=== PATIENT | male | born 1940 | race Caucasian/White ===

== ENCOUNTER → 2020-08-27 12:04 | Outpatient (CLI) | payer MEDICARE, OTHER, SELFPAY ==
[2020-08-27] MEDS: COVID-19 VACC, Ad26(JANSSEN)/PF 0.5 ML IM (12:42)
== END ==
PROVIDERS: Visit Provider Internal Medicine
DX: Z23 Encounter for immunization (principal)
CPT/HCPCS: 0031A; 91303

== ENCOUNTER 2021-10-06 14:34 | Emergency (ER) | payer MEDICARE, OTHER, SELFPAY ==
[2021-10-06] VITALS (9 sets, daily range): BP systolic 130–154; BP diastolic 64–86; PULSE 82–96; RESP 17–23; TEMP 36.6; O2SAT 95–98; BMI 28.5
--- NOTE | 2021-10-06 14:53 | DI.CT.S_ITS ---
PROCEDURE: CT HEAD/BRAIN WO CON INDICATIONS: fall head injury, not on thinners, does not recall the fall TECHNIQUE: Noncontrast 4.5 mm thick angled axial sections acquired from the foramen magnum to the vertex, with coronal and sagittal reformats. For radiation dose reduction, the following was used: automated exposure control, adjustment of mA and/or kV according to patient size. COMPARISON: [facility], CR, XR THORACIC SPINE 3V, 10/06/2021, 14:52. [facility], CT, CT CERVICAL SPINE WO CON, 10/06/2021, 15:02. FINDINGS: Image quality: Excellent. CSF spaces: Basal cisterns are patent. No extra-axial fluid collections. The ventricles are symmetric in size and shape. Brain: No intracranial bleeds or masses. There is cerebral volume loss for age, with resultant ventricular and sulcal prominence. There are periventricular and deep white matter chronic small vessel ischemic changes. There is intracranial internal carotid artery atherosclerosis. Skull and face: Calvarium and visualized facial bones appear intact, without suspicious lesions. Sinuses: Moderate to prominent left and moderate right maxillary sinus mucosal thickening is seen. Mild mucosal thickening is seen elsewhere within the paranasal sinuses. No abnormal fluid is seen within the mastoid air cells. IMPRESSION: No acute intracranial hemorrhage is seen. No acute intracranial process is seen. Paranasal sinus disease is noted, which is worst within the left maxillary sinus. Dictated by: Nikos Ch M.D. on 10/06/2021 at 14:13 Approved by: Nikos Ch M.D. on 10/06/2021 at 14:14
--- NOTE | 2021-10-06 14:56 | DI.CT.S_ITS ---
PROCEDURE: CT CERVICAL SPINE WO CON INDICATIONS: fall TECHNIQUE: Noncontrast 3 mm thick sections acquired from the skull base to the T4 level. Sagittal and coronal reformats were then constructed. For radiation dose reduction, the following was used: automated exposure control, adjustment of mA and/or kV according to patient size. COMPARISON: None. FINDINGS: Image quality: Excellent. Bones: No fractures or dislocations. Degenerative endplate changes, loss of disc height and bilateral facet hypertrophic changes are noted throughout cervical spine. Visualized superior ribs are intact. Soft tissues: Prevertebral soft tissues are normal in thickness. No paravertebral hematomas. No apical pneumothoraces. Dependent atelectasis in posterior aspect of bilateral lung apices are seen. IMPRESSION: 1. No acute cervical spine fracture or dislocation. 2. Degenerative disc disease throughout cervical spine. Dictated by: Endy Willis M.D. on 10/06/2021 at 15:15 Approved by: Endy Willis M.D. on 10/06/2021 at 15:22
--- NOTE | 2021-10-06 15:04 | DI.RAD.S_ITS ---
PROCEDURE: XR THORACIC SPINE 3V INDICATIONS: Fall. Back pain. TECHNIQUE: 3 views of the thoracic spine were acquired. COMPARISON: None. FINDINGS: Bones: No fractures or dislocations. No suspicious bony lesions. Degenerative endplate changes in mid to lower thoracic spine is seen. 12 pairs of ribs are noted, and appear intact where visualized. Soft tissues: No paravertebral stripe thickening. IMPRESSION: No acute thoracic spine fracture or dislocation. Mild degenerative disc disease in mid to lower thoracic spine. Dictated by: Endy Willis M.D. on 10/06/2021 at 15:15 Approved by: Endy Willis M.D. on 10/06/2021 at 15:15
[2021-10-06 15:44] LABS: Add Manual Diff / Slide Review NO; Basophils Absolute Auto 100 /uL (0-100); Basophils Percent Auto 0.9 % (0-2); Eosinophils Absolute Auto 100 /uL (0-450); Eosinophils Percent Auto 1.3 % (2-4); Hematocrit 40.2 % (41-53); Hemoglobin 14.1 g/dL (13.5-17.5); Lymphocytes Absolute Auto 1700 /uL (1100-4500); Lymphocytes Percent Auto 27.1 % (25-40); Mean Corpuscular HGB Conc 35.1 % (30-36); Mean Corpuscular Hemoglobin 37.2 PG (26-34); Monocytes Absolute Auto 600 /uL (0-900); Monocytes Percent Auto 9.8 % (3-14); Neutrophils Absolute Auto 3900 /uL (1500-7000); Neutrophils Percent Auto 60.9 % (50-75); Platelet Count 168 X10^3/uL (150-400); Red Blood Cell Count 3.79 X10^6/uL (4.5-5.9); Red Cell Distribution Width 12.9 % (11.6-14.8); White Blood Cell Count 6.4 X10^3/uL (4.5-11.0)
--- NOTE | 2021-10-06 15:46 | ED.FALL ---
HPI - Fall General Chief Complaint: Fall Stated Complaint: FALL BLACKOUT HIT BACK OF HEAD Time Seen by Provider: 10/06/21 14:56 Source: patient and family Mode of arrival: Wheelchair History of Present Illness HPI Narrative: The patient arrives by EMS after a fall at home. He cannot provide a lot of detail, he thinks he was outside. He apparently fell backwards, striking his occipital head. He has a laceration. He is not anticoagulated. He has poor memory to the actual event. He tells me he does have frequent falls. He is uncertain if he experienced syncope. He was not having dyspnea, palpitations or chest pain. He has headache, neck pain he and upper back pain. He has left clavicle pain, he has had a fracture that site before. He fell yesterday, he has mild discomfort in his right thigh. He moves all extremities without discomfort. He has no visual changes, no confusion. He has no obvious change in facial expression. He speaks clearly. He denies recent fever chills. He has not not had an infection. Related Data Allergies Allergy/AdvReac Type Severity Reaction Status Date / Time No Known Drug Allergies Allergy Verified 10/06/21 14:42 Review of Systems Constitutional Constitutional: Denies anorexia, Denies body ache(s), Denies chills, Denies fatigue, Denies fever(s), Denies headache(s), Denies poor appetite and Denies weakness Comments: Occipital head pain and neck pain. Eyes Eyes: Denies blurry vision, Denies exophthalmos and Denies change in vision ENT Ears, Nose, Mouth, and Throat: Denies vertigo, Denies dizziness, Denies facial pain and Denies headache(s) Cardiovascular Cardiovascular: Denies chest pain, Denies chest pain at rest, Denies rapid heart rate, Denies pedal edema, Denies edema and Denies dyspnea Comments: Possible syncope. Respiratory Respiratory: Denies chest congestion, Denies pain with cough and Denies dyspnea Musculoskeletal Comments: Thoracic back pain. Left shoulder pain. No extremity injuries. Integumentary/Breasts Skin/Breast: Denies lesions and Denies rash Neurologic Neurologic: Denies behavioral changes, Denies confusion, Denies vertigo, Denies dizziness, Denies headache(s), Denies convulsions and Denies weakness Psychiatric Psychiatric: Denies behavioral changes and Denies confusion Endocrine Endocrine: Denies fatigue Hematologic/Lymphatic On Anticoagulants: No Patient History Medical History (Updated 10/06/21 @ 17:46 by Hernan Haas MD) Frequent falls Social History Smoking Status: Never smoker Smoking Status: Never smoker alcohol intake frequency: 0-2 drinks per day Alcohol type: wine Substance Use Type: does not use Exam Initial Vital Signs Initial Vital Signs: Vital Signs Temperature 98 F 10/06/21 14:42 Pulse Rate 96 H 10/06/21 14:42 Respiratory Rate 18 10/06/21 14:42 Blood Pressure 154/86 H 10/06/21 14:42 Pulse Oximetry 98 10/06/21 14:42 Const General: cooperative, healthy appearing, comfortable, well developed, well groomed and No in distress HENMT Head: other (2 cm occipital laceration. No bony injury. No foreign body or active blee) Ears: TM's normal bilaterally Nose: external nose normal Face and sinus: normal facial exam Mouth: oral mucosae normal Throat: posterior oropharynx normal Eyes General: appearance normal, both eyes and all related structures Neck Other: Central cervical tenderness. Chest Chest: normal inspection of the chest Resp Auscultation: clear to auscultation bilaterally Cardio Rate: regular rate Rhythm: regular rhythm Heart Sounds: S1 normal, S2 normal, no click and no murmurs GI Palpation: soft, No mass and No tender Auscultation: normal bowel sounds Back/Spine/Pelvis Back: normal to inspection and back tenderness (Upper thoracic tenderness. No superficial injury, no palpable abnormality) Skin General: no rashes or lesions noted (Other than the scalp laceration.) Neuro General: patient alert, patient oriented x3, no meningeal signs, no focal motor deficits and other (Normal gait) Extrem General: normal to inspection and full ROM Other: Tenderness to the left scapula without deformity. Hips, knees and ankles are all nontender. Gait is normal. Psych Mental Status: mental status grossly normal Procedures Laceration Repair Laceration 1: Time of procedure: 15:47 Site: scalp Size (cm): 2 Description: linear Depth: simple, single layer Pre-repair: wound explored, irrigated extensively (With Betadine then saline.) and deep structures intact Skin layer closed with: venkatesh (2 surgical venkatesh to the occipital scalp laceration. The procedure was tolerated well, no complications.) Course Course Course Narrative: Cardiac monitoring was normal throughout his ER stay, vitals were stable. He is alert oriented, no neurologic deficit. The head laceration was repaired. I suggest he follow up with his doctor and explore potential etiologies for his recurring falls. Orders Ordered: ED Orders 10/06/21 14:53 CT head/brain wo con Stat 10/06/21 14:56 CT cervical spine wo con Stat 10/06/21 15:04 XR thoracic spine 3V Stat 10/06/21 15:05 EKG-12 Lead Stat 10/06/21 15:25 Complete Blood Count AUTO DIFF Stat Comprehensive Metabolic Panel Stat Troponin & CK Cardiac Panel Stat 10/06/21 15:48 XR clavicle LT Stat Vital Signs Vital signs: Vital Signs - 8 hr 10/06/21 14:42 10/06/21 15:13 10/06/21 15:15 Temperature 98 F Pulse Rate 96 H 89 91 H Respiratory Rate 18 Blood Pressure 154/86 H 130/82 Pulse Oximetry 98 95 96 10/06/21 15:30 10/06/21 16:00 10/06/21 16:54 Temperature Pulse Rate 89 91 H 89 Respiratory Rate 23 18 Blood Pressure Pulse Oximetry 95 96 96 10/06/21 16:57 10/06/21 17:00 10/06/21 17:55 Temperature Pulse Rate 86 82 90 Respiratory Rate 19 17 18 Blood Pressure 149/74 H 146/72 H 140/64 Pulse Oximetry 98 97 95 MDM - Fall Lab Data Result diagrams: 10/06/21 15:25 10/06/21 15:25 Labs: Lab Results 10/06/21 10/06/21 Range/Units 15:25 15:25 WBC 6.4 (4.5-11.0) X10^3/uL RBC 3.79 L (4.5-5.9) X10^6/uL Hgb 14.1 (13.5-17.5) g/dL Hct 40.2 L (41-53) % MCV 106.0 H (80-100) fL MCH 37.2 H (26-34) PG MCHC 35.1 (30-36) % RDW 12.9 (11.6-14.8) % Plt Count 168 (150-400) X10^3/uL Neut % (Auto) 60.9 (50-75) % Lymph % (Auto) 27.1 (25-40) % Perkins % (Auto) 9.8 (3-14) % Eos % (Auto) 1.3 L (2-4) % Baso % (Auto) 0.9 (0-2) % Neut # (Auto) 3900 (9377-4072) /uL Lymph # (Auto) 1700 (4915-5109) /uL Perkins # (Auto) 600 (0-900) /uL Eos # (Auto) 100 (0-450) /uL Baso # (Auto) 100 (0-100) /uL Sodium 140 (137-145) mmol/L Potassium 3.9 (3.4-5.1) mmol/L Chloride 105 (98-107) mmol/L Carbon Dioxide 26 (22-32) mmol/L BUN 16 (9-20) mg/dL Creatinine 0.93 (0.66-1.25) mg/dL Estimated GFR > 60 (>60) mL/min BUN/Creatinine Ratio 17.2 (6-22) Glucose 131 H (80-110) mg/dL Calcium 9.4 (8.4-10.2) mg/dL Total Bilirubin 0.6 (0.2-1.3) mg/dL AST 45 (17-59) IU/L ALT 31 (<50) IU/L Alkaline Phosphatase 107 (38-126) U/L Total Creatine Kinase 128 (55-170) U/L CK-MB (CK-2) 2.24 (<2.37) ng/mL CK-MB (CK-2) Rel Index 1.8 (1.5-5.0) % Troponin I < 0.012 (0.01-0.034) ng/mL Total Protein 8.1 (6.3-8.2) g/dL Albumin 4.9 (3.5-5.0) g/dL Globulin 3.2 (1.7-4.1) g/dL Albumin/Globulin Ratio 1.5 (1.0-2.8) Imaging Data CT scan - head: Radiologist's Impression: ?No acute intracranial hemorrhage is seen.? ? No acute intracranial process is seen.? ? Paranasal sinus disease is noted, which is worst within the left maxillary sinus. ? CT - cervical spine: Radiologist's Impression: 1. No acute cervical spine fracture or dislocation. 2. Degenerative disc disease throughout cervical spine. Thoracic spine x-ray: Radiologist's Impression: No acute thoracic spine fracture or dislocation. Mild DJD. Left clavicle x-ray:: Radiologist's Impression: Moderate acromioclavicular joint osteoarthritis.? No gross acute clavicular fracture or dislocation. ECG Data Attestation: I personally reviewed and interpreted this ECG as follows: Discharge Plan Departure Patient Disposition: Home Clinical Impression: Laceration of occipital region of scalp, Frequent falls Instructions: DI for Laceration Repair of the Scalp Activity Restrictions/Additional Instructions: Take the bandage off tomorrow. You may shower, resume normal activity tomorrow. Follow-up with your doctor next week for staple removal. Discuss the multiple falls with your doctor. We are not discovering any neurologic or cardiac issues, but further monitoring and evaluation should be considered. Return to the ER as necessary.
--- NOTE | 2021-10-06 15:48 | DI.RAD.S_ITS ---
PROCEDURE: XR CLAVICLE LT INDICATIONS: Fall, left scapula pain. TECHNIQUE: 2 views of the clavicle were acquired. COMPARISON: None. FINDINGS: Bones: No fractures or dislocations. Moderate acromioclavicular joint osteoarthritic changes are seen. No suspicious bony lesions. Soft tissues: No suspicious soft tissue calcifications. IMPRESSION: Moderate acromioclavicular joint osteoarthritis. No gross acute clavicular fracture or dislocation. Dictated by: Endy Willis M.D. on 10/06/2021 at 16:26 Approved by: Endy Willis M.D. on 10/06/2021 at 16:26
[2021-10-06 15:57] LABS: Alanine Aminotransferase 31 IU/L (<50); Albumin 4.9 g/dL (3.5-5.0); Albumin Globulin Ratio 1.5 (1.0-2.8); Alkaline Phosphatase 107 U/L (38-126); Aspartate Aminotransferase 45 IU/L (17-59); BUN Creatinine Ratio 17.2 (6-22); Bilirubin Total 0.6 mg/dL (0.2-1.3); Blood Urea Nitrogen 16 mg/dL (9-20); Calcium 9.4 mg/dL (8.4-10.2); Carbon Dioxide 26 mmol/L (22-32); Chloride 105 mmol/L (98-107); Creatine Kinase 128 U/L (55-170); Estimated Glomerular Filt Rate > 60 mL/min (>60); Globulin 3.2 g/dL (1.7-4.1); Glucose 131 mg/dL (80-110); HEMOLYSIS < 15 (0-50); Potassium 3.9 mmol/L (3.4-5.1); Sodium 140 mmol/L (137-145); Total Protein 8.1 g/dL (6.3-8.2)
[2021-10-06 16:08] LABS: Troponin I < 0.012 ng/mL (0.01-0.034)
[2021-10-06 16:12] LABS: CKMB % Relative Index 1.8 % (1.5-5.0); Creatine Kinase MB 2.24 ng/mL (<2.37)
== END 2021-10-06 17:57 | disposition home or self-care (01) ==
PROVIDERS: Emergency Provider Emergency Medicine
DX: S01.01XA Laceration without foreign body of scalp, initial encounter (principal); R29.6 Repeated falls; W19.XXXA Unspecified fall, initial encounter; Y92.009 Unspecified place in unspecified non-institutional (private) residence as the place of occurrence of the external cause
CPT/HCPCS: 12001; 36415; 70450; 72072; 72125; 73000; 80053; 82550; 82553; 84484; 85025; 93005; 99283; 99284

== ENCOUNTER 2021-11-21 10:51 | Emergency (ER) | payer MEDICARE, OTHER, SELFPAY ==
[2021-11-21 11:05] VITALS: BP 163/84; PULSE 86; RESP 18; TEMP 36.9; O2SAT 98; BMI 25.5
--- NOTE | 2021-11-21 11:28 | ED.GENADULT ---
HPI - General Adult General Chief complaint: Upper Respiratory Symptoms Stated complaint: Check blood oxygen levels Time Seen by Provider: 11/21/21 11:09 Source: patient Mode of arrival: Ambulatory History of Present Illness HPI narrative: 81-year-old male who 3 days ago to go home COVID test which was positive. He states the time he was having quite a bit of a runny nose. Is also having some shortness of breath but this seemed to be baseline for him. He states that his neighbors brought over a pulse oximeter. Today he checked his pulse oximetry and it was 92. States that his in his neighbors became very concerned about this and he insisted that he come in to be evaluated. He is not having any shortness of breath. No chest pain. Related Data Allergies Allergy/AdvReac Type Severity Reaction Status Date / Time No Known Drug Allergies Allergy Verified 10/06/21 14:42 Review of Systems Constitutional Constitutional: Reports system reviewed and no additional complaints, except as documented ENT Ears, Nose, Mouth, and Throat: Reports system reviewed and no additional complaints, except as documented Cardiovascular Cardiovascular: Reports system reviewed and no additional complaints, except as documented Respiratory Respiratory: Reports system reviewed and no additional complaints, except as documented Patient History Medical History Frequent falls Social History Smoking Status: Never smoker Smoking Status: Never smoker alcohol intake frequency: 0-2 drinks per day Alcohol type: wine Substance Use Type: does not use Exam Initial Vital Signs Initial Vital Signs: Vital Signs Temperature 98.4 F 11/21/21 11:05 Pulse Rate 86 11/21/21 11:05 Respiratory Rate 18 11/21/21 11:05 Blood Pressure 163/84 H 11/21/21 11:05 Pulse Oximetry 98 11/21/21 11:05 Resp Effort & Inspection: normal respiratory effort Auscultation: clear to auscultation bilaterally Cardio Rate: regular rate Rhythm: regular rhythm Skin General: no rashes or lesions noted Neuro General: patient alert, patient awake and moves all extremities Extrem General: normal to inspection Course Vital Signs Vital signs: Vital Signs - 8 hr 11/21/21 11:05 Temperature 98.4 F Pulse Rate 86 Respiratory Rate 18 Blood Pressure 163/84 H Pulse Oximetry 98 Medical Decision Making MDM Narrative Medical decision making narrative: No respiratory distress, not hypoxic, not tachypneic, clear lung exam. Informed patient of the findings today. Reassured him. We did discuss return precautions. He expressed understanding and agreement. Discharge Plan Departure Patient Disposition: Home Clinical Impression: COVID-19 Instructions: DI for COVID-19 (Suspected or Confirmed ) Activity Restrictions/Additional Instructions: Continue all your medications as directed. Follow all CDC guidelines with regard to quarantine for COVID-19. Return to the emergency department for any new or worsening symptoms to include oxygen saturations consistently less than 90%.
[2021-11-21 11:42] VITALS: PULSE 89; RESP 18; O2SAT 99
== END 2021-11-21 11:42 | disposition home or self-care (01) ==
PROVIDERS: Emergency Provider Emergency Medicine
DX: U07.1 COVID-19 (principal)
CPT/HCPCS: 99281

== ENCOUNTER 2025-03-07 11:12 | Emergency (ER) | payer OTHER, SELFPAY ==
[2025-03-07 11:29] VITALS: BP 138/81; PULSE 114; RESP 20; TEMP 37.7; O2SAT 93; BMI 25.7
--- NOTE | 2025-03-07 11:38 | DI.RAD.S_ITS ---
PROCEDURE: XR CHEST 1V INDICATIONS: suspected sepsis TECHNIQUE: One view of the chest was acquired. COMPARISON: None. FINDINGS: Surgical changes and devices: None. Lungs and pleura: Lungs are clear. No pleural effusions or pneumothorax. Mediastinum: Mediastinal contours appear normal. Heart size is normal. Bones and chest wall: No suspicious bony lesions. Overlying soft tissues appear unremarkable. IMPRESSION: No acute cardiopulmonary abnormality is seen. Dictated by: Olivier Khan M.D. on 03/07/2025 at 12:30 Approved by: Olivier Khan M.D. on 03/07/2025 at 12:30
--- NOTE | 2025-03-07 11:38 | EKG_ITS ---
[address] [id number] Test Date: 2025-03-07 Pat Name: Maxx Martinez Department: [facility] Room: Gender: Male Senior [employer]: THUAN : 1940 Requested By: Order Number: [id number] Reading MD: Joseph Cunningham MD Measurements Intervals [place] Rate: 101 P: 41 DC: 134 QRS: 20 QRSD: 80 T: 45 QT: 340 QTc: 440 Interpretive Statements Sinus tachycardia Electronically Signed On 03-07-2025 12:14:58 PDT by Joseph Cunningham MD
[2025-03-07 12:33] LABS: Add Manual Diff / Slide Review NO; Hematocrit 38.4 % (41-53); Hemoglobin 13.4 g/dL (13.5-17.5); Lymphocytes Absolute Auto 1100 /uL (1100-4500); Mean Corpuscular HGB Conc 34.9 % (30-36); Mean Corpuscular Hemoglobin 35.3 PG (26-34); Mean Corpuscular Volume 101.0 fL (80-100); Platelet Count 153 X10^3/uL (150-400)
[2025-03-07 12:42] VITALS: PULSE 100; RESP 15; O2SAT 94
[2025-03-07 12:42] LABS: INR 1.1 (0.9-1.3); Prothrombin Time 13.0 SECONDS (9.4-12.5)
[2025-03-07 12:44] VITALS: BP 141/68; PULSE 98; O2SAT 93
[2025-03-07 12:44] LABS: Lactate (Lactic Acid) 1.1 mmol/L (0.7-2.1)
[2025-03-07 12:45] LABS: PTT Partial Thromboplastin Tim 62 SECONDS (25.1-36.5)
[2025-03-07] MEDS: SODIUM CHLORIDE 0.9% 1,000 ML 1000 ML IV (12:49)
[2025-03-07 12:50] LABS: Alanine Aminotransferase 37 IU/L (<50); Albumin 4.9 g/dL (3.5-5.0); Albumin Globulin Ratio 1.4 (1.0-2.8); Alkaline Phosphatase 79 U/L (38-126); Blood Urea Nitrogen 18 mg/dL (9-20); Calcium 9.1 mg/dL (8.4-10.2); Carbon Dioxide 23 mmol/L (22-32); Chloride 101 mmol/L (98-107); Estimated Glomerular Filt Rate > 60 mL/min (>60); Globulin 3.6 g/dL (1.7-4.1); Glucose 109 mg/dL (70-99); HEMOLYSIS < 15 (0-50); Lipase 58 U/L (23-300); Potassium 3.8 mmol/L (3.4-5.1); Sodium 136 mmol/L (137-145); Total Protein 8.5 g/dL (6.3-8.2)
[2025-03-07 13:00] VITALS: BP 132/62; PULSE 92; RESP 12; O2SAT 92
--- NOTE | 2025-03-07 13:02 | ED.WEAKNESS ---
HPI - Weakness General Chief complaint: Weakness Stated complaint: COVID + Hallucinations X 2 Days Time Seen by Provider: 03/07/25 12:36 Source: patient Mode of arrival: Ambulatory History of Present Illness HPI Narrative: Patient is a 85-year-old male history ulcerative colitis depression presents today with confusion and fever. tested positive for COVID last week he started having fever and some symptoms 2 days ago. He has fallen twice no antiplatelet or anticoagulation medication. reports he was trying to plug his phone in by the stove she reports that there used to be a plug there 20 years ago but not for a long time. She has just noticed some mild confusion. He does have a temperature here of 100. No significant cough reports all over body aches and pains Related Data Home Medications ?Medication ?Instructions ?Recorded ?Confirmed Calcium & Vitamin D3 600mg PO DAILY 02/10/25 Imodium AD 2mg PO DAILY 02/10/25 Vitamin B12 1000mcg PO DAILY 02/10/25 02/10/25 adult multivitamin PO DAILY 02/10/25 02/10/25 ascorbate calcium (vitamin C) 500 500 mg PO DAILY 02/10/25 02/10/25 mg tablet cholecalciferol (vitamin D3) 50 50 mcg PO DAILY 02/10/25 02/10/25 mcg (2,000 unit) capsule flax seed oil PO DAILY 02/10/25 folic acid 800 mcg tablet 0.8 mg PO DAILY 02/10/25 02/10/25 ranitidine HCl 150 mg tablet mg PO DAILY PRN 02/10/25 02/10/25 Previous Rx's ?Medication ?Instructions ?Recorded citalopram 20 mg tablet 20 mg PO DAILY #100 tabs 02/10/25 sulfasalazine 500 mg tablet 2,000 mg (4 x 500 mg) PO BID #400 02/10/25 tabs Allergies Allergy/AdvReac Type Severity Reaction Status Date / Time No Known Drug Allergies Allergy Verified 03/07/25 11:30 Patient History Medical History (Updated 03/07/25 @ 15:16 by Chelita Romero DO) Depression, unspecified Ulcerative colitis Frequent falls Social History Smoking Status: Never smoker Smoking Status: Never smoker alcohol intake frequency: 0-2 drinks per day Alcohol type: wine Exam Initial Vital Signs Initial Vital Signs: Vital Signs Temperature 100 F H 09/19/25 11:29 Pulse Rate 114 H 03/07/25 11:29 Respiratory Rate 20 03/07/25 11:29 Blood Pressure 138/81 03/07/25 11:29 Pulse Oximetry 93 03/07/25 11:29 Oxygen Delivery Method Room Air 03/07/25 11:29 GENERAL: Alert pleasant mildly confused 85-year-old male and in no acute distress. HEENT: Head atraumatic,EOMI, pupils reactive, face symmetric, moist mucous membranes CARDIOVASCULAR: Regular rate and rhythm without murmurs, rubs or gallops. RESPIRATORY: Breath sounds equal bilaterally, no wheezes rales or rhonchi. ABDOMEN: Soft, nontender. Normoactive bowel sounds all 4 quadrants. No guarding or rebound. EXTREMITIES: Normal range of motion, no clubbing or edema. Neurovascularly intact NEUROLOGICAL: Alert and oriented x4.Normal gait and speech. Cranial nerves II through XII grossly intact. SKIN: Warm, dry, no laceration, no petechiae, no rashes or lesions. Course Orders Ordered: Discontinued Medications Sodium Chloride (Normal Saline 0.9%) 1,000 mls @ 1,000 mls/hr IV BOLUS ONE Stop: 03/07/25 12:37 Last Infusion: 03/07/25 14:12 Dose: Infused Documented By: Admin: 03/07/25 12:49 Dose: 1,000 mls/hr Documented By: VALDEMAR Ketorolac Tromethamine (Ketorolac 30 Mg/Ml Vial) 15 mg IV NOW ONE Stop: 03/07/25 13:11 Last Admin: 03/07/25 14:08 Dose: 15 mg Documented By: VALDEMAR Ondansetron HCl (Ondansetron 4 Mg/2 Ml Inj) 4 mg IV NOW PRN PRN Reason: Nausea And Vomiting Ondansetron HCl (Ondansetron 4 Mg Odt) 4 mg PO NOW PRN PRN Reason: Nausea And Vomiting Vital Signs Vital signs: Vital Signs - 8 hr 03/07/25 11:29 Temperature 100 F H Pulse Rate 114 H Respiratory Rate 20 Blood Pressure 138/81 Pulse Oximetry 93 Oxygen Delivery Method Room Air MDM - Weakness Lab Data 03/07/25 12:17 03/07/25 12:17 Labs: Lab Results 03/07/25 03/07/25 03/07/25 Range/Units 12:17 14:05 14:11 WBC 7.1 (4.5-11.0) X10^3/uL RBC 3.80 L (4.5-5.9) X10^6/uL Hgb 13.4 L (13.5-17.5) g/dL Hct 38.4 L (41-53) % MCV 101.0 H (80-100) fL MCH 35.3 H (26-34) PG MCHC 34.9 (30-36) % RDW 13.3 (11.6-14.8) % Plt Count 153 (150-400) X10^3/uL Neut % (Auto) 66.1 (50-75) % Lymph % (Auto) 15.8 L (25-40) % Walker % (Auto) 17.5 H (3-14) % Eos % (Auto) 0.1 L (2-4) % Baso % (Auto) 0.5 (0-2) % Neut # (Auto) 4700 (5403-9519) /uL Lymph # (Auto) 1100 (4085-7440) /uL Walker # (Auto) 1200 H (0-900) /uL Eos # (Auto) 0 (0-450) /uL Baso # (Auto) 0 (0-100) /uL PT 13.0 H (9.4-12.5) SECONDS INR 1.1 (0.9-1.3) APTT 62 H (25.1-36.5) SECONDS Sodium 136 L (137-145) mmol/L Potassium 3.8 (3.4-5.1) mmol/L Chloride 101 (98-107) mmol/L Carbon Dioxide 23 (22-32) mmol/L BUN 18 (9-20) mg/dL Creatinine 1.03 (0.66-1.25) mg/dL Estimated GFR > 60 (>60) mL/min BUN/Creatinine Ratio 17.5 (6-22) Glucose 109 H (70-99) mg/dL Lactate 1.1 (0.7-2.1) mmol/L Calcium 9.1 (8.4-10.2) mg/dL Total Bilirubin 1.6 H (0.2-1.3) mg/dL AST 66 H (17-59) IU/L ALT 37 (<50) IU/L Alkaline Phosphatase 79 (38-126) U/L Total Protein 8.5 H (6.3-8.2) g/dL Albumin 4.9 (3.5-5.0) g/dL Globulin 3.6 (1.7-4.1) g/dL Albumin/Globulin Ratio 1.4 (1.0-2.8) Lipase 58 (23-300) U/L Procalcitonin 0.193 (<0.5) ng/mL Urine RBC 0-1/hpf (0-5/HPF) Urine WBC 0-1/hpf (0-5/HPF) Ur Squamous Epith Cells 0-1 /hpf (0-5/HPF) Urine Bacteria Occasional (0-1) (None) Ur Culture Indicated? TNP Vol Urine Centrifuged 10ml (spun) SARS-CoV-2 (PCR) Positive H (Negative) Influenza A (RT-PCR) Flu a negative (NEGATIVE) Influenza B (RT-PCR) Flu b negative (NEGATIVE) RSV (PCR) Negative (Negative) Urine Dip Bedside Urine Glucose Negative Bedside Urine Bilirubin - Negative Bedside Urine Ketone ++ 40 Urine Specific [place] 1.020 Bedside Urine Occult Blood - Negative Bedside Urine pH 5.5 Bedside Urine Protein + 30 Bedside Urine Urobilinogen - Negative Bedside Urine Nitrite - Negative Bedside Urine Leukocytes - Negative Esterase Imaging Data Chest x-ray: Radiologist Impression: PROCEDURE: XR CHEST 1V INDICATIONS: suspected sepsis TECHNIQUE: One view of the chest was acquired. COMPARISON: None. FINDINGS: Surgical changes and devices: None. Lungs and pleura: Lungs are clear. No pleural effusions or pneumothorax. Mediastinum: Mediastinal contours appear normal. Heart size is normal. Bones and chest wall: No suspicious bony lesions. Overlying soft tissues appear unremarkable. IMPRESSION: No acute cardiopulmonary abnormality is seen. Dictated by: Olivier Khan M.D. on 03/07/2025 at 12:30 CT scan - head: Radiologist Impression: PROCEDURE: CT HEAD/BRAIN WO CON INDICATIONS: multiple falls TECHNIQUE: Noncontrast 4.5 mm thick angled axial sections acquired from the foramen magnum to the vertex, with coronal and sagittal reformats. For radiation dose reduction, the following was used: automated exposure control, adjustment of mA and/or kV according to patient size. COMPARISON: [facility], CT, CT HEAD/BRAIN WO CON, 10/06/2021, 15:02. FINDINGS: Image quality: Diagnostic. CSF spaces: Basal cisterns are patent. No extra-axial fluid collections. The ventricles are symmetric in size and shape. Brain: No intracranial bleeds or mass effect. There is cerebral volume loss, with resultant ventricular and sulcal prominence. There are periventricular and deep white matter chronic small vessel ischemic changes. There is intracranial internal carotid artery atherosclerosis. Skull and face: Calvarium and visualized facial bones appear intact, without suspicious lesions. Sinuses: Bilateral maxillary sinus mucosal thickening. Significant dependent tissue in the left maxillary sinus. Patchy chronic ethmoid disease. Mastoids are clear. IMPRESSION: No acute intracranial pathology. Acute on chronic sinus disease. Dictated by: Olivier Khan M.D. on 03/07/2025 at 14:48 ECG Data Attestation: I personally reviewed and interpreted this ECG as follows: Prior ECG tracings: not available for review Interpretation: Normal sinus rhythm rate 101 HI interval 134 QRS [address] changes priors MDM Narrative Medical decision making narrative: MDM CC: Confused Complicating co-morbidities: Ulcerative colitis depression Data collected from: and patient Medical records reviewed: PCP record from 02/10/2025 as ulcerative colitis depression, worsening balance issues Differential considered: Sepsis viral illness intracranial hemorrhage Exam documented above, pertinent findings include: Alert mildly confused 85-year-old male mild contusion right forehead no depression moving all extremities Lab Test results independently reviewed as above. Pertinent findings: WBC 7.1 hemoglobin 13.4 Electrolytes within normal limits no LIAM Lactate 1.1 Bilirubin 1.6 AST 66 ALT 37 COVID + Independently reviewed EKG as above Sinus tachycardia Imaging studies independently reviewed: CT head no intracranial pathology Chest x-ray no pneumonia Consultations: None Treatments: Toradol, Zofran IV fluids Re-evaluations: Patient is feeling little bit better seems a little less confused. Discussion: Patient 85-year-old male presenting today with fever confusion. It is presumed COVID because patient's tested positive for COVID. X-ray does not show any evidence of pneumonia lactate is 1.1 no leukocytosis. This time he is positive for COVID no need for antibiotics. He is not septic. At this time both patient and feel comfortable going home. No need for admission. Discharge Plan Departure Patient Disposition: Home Clinical Impression: COVID-19 Instructions: DI for COVID-19 (Suspected or Confirmed ) Activity Restrictions/Additional Instructions: *You have been diagnosed with COVID-19 *What to do: At this time Tylenol or Motrin as needed for fever. Increase fluids and diet as tolerated *Continue to take medications as directed Tylenol 650 mg every 4-6 hours for [id number] pain or fever Motrin 600 mg every 6 hours for fever *Follow up with your primary care provider in 2-3 days or call [phone] *Return to ER if you should have increasing confusion falling weak or any new, worsening or concerning symptoms Prescriptions: No Action ranitidine HCl 150 mg tablet PO DAILY PRN ascorbate calcium (vitamin C) 500 mg tablet 500 mg PO DAILY folic acid 800 mcg tablet 0.8 mg PO DAILY cholecalciferol (vitamin D3) 50 mcg (2,000 unit) capsule 50 mcg PO DAILY Calcium & Vitamin D3 600mg PO DAILY Imodium AD 2mg PO DAILY Vitamin B12 1000mcg PO DAILY adult multivitamin PO DAILY flax seed oil PO DAILY citalopram 20 mg tablet 20 mg PO DAILY Qty: 100 3RF sulfasalazine 500 mg tablet 2,000 mg PO BID Qty: 400 3RF Referrals: Jose A Almonte DO [Primary Care Provider, Family Practice] Stand Alone Forms: Patient Portal/API
[2025-03-07 13:06] LABS: Procalcitonin 0.193 ng/mL (<0.5)
--- NOTE | 2025-03-07 13:10 | DI.CT.S_ITS ---
PROCEDURE: CT HEAD/BRAIN WO CON INDICATIONS: multiple falls TECHNIQUE: Noncontrast 4.5 mm thick angled axial sections acquired from the foramen magnum to the vertex, with coronal and sagittal reformats. For radiation dose reduction, the following was used: automated exposure control, adjustment of mA and/or kV according to patient size. COMPARISON: [facility], CT, CT HEAD/BRAIN WO CON, 10/06/2021, 15:02. FINDINGS: Image quality: Diagnostic. CSF spaces: Basal cisterns are patent. No extra-axial fluid collections. The ventricles are symmetric in size and shape. Brain: No intracranial bleeds or mass effect. There is cerebral volume loss, with resultant ventricular and sulcal prominence. There are periventricular and deep white matter chronic small vessel ischemic changes. There is intracranial internal carotid artery atherosclerosis. Skull and face: Calvarium and visualized facial bones appear intact, without suspicious lesions. Sinuses: Bilateral maxillary sinus mucosal thickening. Significant dependent tissue in the left maxillary sinus. Patchy chronic ethmoid disease. Mastoids are clear. IMPRESSION: No acute intracranial pathology. Acute on chronic sinus disease. Dictated by: Olivier Khan M.D. on 03/07/2025 at 14:48 Approved by: Olivier Khan M.D. on 03/07/2025 at 14:49
[2025-03-07 13:30] VITALS: BP 138/63; PULSE 85; RESP 13; O2SAT 95
[2025-03-07 14:00] VITALS: BP 135/65; PULSE 86; RESP 16; O2SAT 95
[2025-03-07] MEDS: KETOROLAC 30 MG/ML VIAL 15 MG IV (14:08)
[2025-03-07 14:59] LABS: Influenza A - CEPHEID Flu A NEGATIVE (NEGATIVE); Influenza B - CEPHEID Flu B NEGATIVE (NEGATIVE)
[2025-03-07 15:05] LABS: COVID-19 CEPHEID 4-PLEX PCR POSITIVE (Negative)
== END 2025-03-07 15:19 | disposition home or self-care (01) ==
PROVIDERS: Emergency Provider Emergency Medicine; PCP Family Medicine
DX: U07.1 COVID-19 (principal); R29.6 Repeated falls; R50.9 Fever, unspecified
CPT/HCPCS: 36415; 70450; 71045; 80053; 81003; 81015; 83605; 83690; 84145; 85025; 85610; 85730; 87040; 87086; 87637; 93005; 99284; J1885

== ENCOUNTER 2025-03-08 23:27 | Inpatient (IN) | payer OTHER, SELFPAY ==
[2025-03-08 23:29] VITALS: BP 136/68; PULSE 79; RESP 18; TEMP 37.3; O2SAT 100; BMI 25.7
--- NOTE | 2025-03-08 23:42 | PC.NURSE ---
pt states it feels like it is his sciatic nerve, he is having trouble with right leg making it difficulty to walk d/t the pain
[2025-03-09] VITALS (20 sets, daily range): BP systolic 105–144; BP diastolic 55–83; PULSE 64–93; RESP 12–20; TEMP 35.8–36.5; O2SAT 84–97; BMI 25.7
--- NOTE | 2025-03-09 | DI.RAD.S_ITS ---
PROCEDURE: XR HIP W PEL IF DONE RT 2V INDICATIONS: RT HIP IM NAILLING TECHNIQUE: Low resolution intraoperative fluoroscopic spot films were obtained COMPARISON: [facility], [facility], XR HIP W PEL RT 2V, 03/09/2025, 0:20. FINDINGS: Intraoperative fluoroscopic spot films show femoral nail and screw placement in progress IMPRESSION: Fluoroscopic guidance Approved by: Keith Apodaca M.D. on 03/09/2025 at 12:25
--- NOTE | 2025-03-09 00:19 | DI.RAD.S_ITS ---
PROCEDURE: XR HIP W PEL IF DONE LT 2V INDICATIONS: fall, L hip pain TECHNIQUE: AP pelvis with lateral view(s) of the right hip(s). COMPARISON: None. FINDINGS: Bones: There is a mildly displaced femoral neck fracture seen, which is best demonstrated on the lateral view. No fractures of the bones of the pelvis can be seen. Moderate bilateral hip degenerative change can be seen. Age-appropriate lower lumbar spine degenerative changes are noted. Soft tissues: The visualized bowel gas pattern is normal. No suspicious soft tissue calcifications. IMPRESSION: Mildly displaced right femoral neck fracture. Dictated by: Nikos Ch M.D. on 03/09/2025 at 0:04 Approved by: Nikos Ch M.D. on 03/09/2025 at 0:05
--- NOTE | 2025-03-09 00:25 | DI.CT.S_ITS ---
PROCEDURE: CT ABDOMEN PELVIS WO CON INDICATIONS: right hip, low back pain, after GLF TECHNIQUE: CT of the abdomen and pelvis was obtained without intravenous contrast. Coronal and sagittal reformats were performed. For radiation dose reduction, the following was used: automated exposure control, adjustment of mA and/or kV according to patient size. COMPARISON: [facility], CT, CT HEAD/BRAIN WO CON, 03/09/2025, 1:00. [facility], CR, XR HIP W PEL RT 2V, 03/09/2025, 0:20. [facility], CT, CT HEAD/BRAIN WO CON, 03/07/2025, 14:21. FINDINGS: Image quality: There is streak artifact seen through the upper abdomen. Lower Chest: Mild scarring/fibrotic change can be seen at the lung bases. ABDOMEN: Liver: No contour-deforming mass. Gallbladder: No radiopaque gallstones or wall thickening. Biliary ducts: No biliary dilation. Pancreas: No ductal dilation. Spleen: Size is within normal limits. Adrenal Glands: No adrenal nodules. Kidneys and Ureters: No hydronephrosis. No contour-deforming mass. Stomach and Bowel: Normal colonic caliber, without significant wall thickening. Distal colonic diverticulosis is seen, latesha findings active diverticulitis. No dilated loops of small bowel are seen. A normal appendix is noted. Peritoneum: No abnormal intraperitoneal fluid. No free air. Ventral Wall: No significant hernia. Abdominal Nodes: No retroperitoneal or mesenteric adenopathy by size criteria. Vessels: Aorta and inferior vena cava are normal in size. Atherosclerotic calcification is noted. PELVIS: Pelvic Organs: Unremarkable. Bladder: Unremarkable. Pelvic Nodes: No enlarged lymph nodes. Miscellaneous: No inguinal hernias are seen. Bones: No aggressive osseous abnormality. The known right femoral neck fracture is seen. No hip dislocation. No fractures of the bones of the pelvis can be seen. Age-appropriate bony degenerative changes are seen. IMPRESSION: Right femoral neck fracture. No definite additional posttraumatic abnormality seen. Dictated by: Nikos Ch M.D. on 03/09/2025 at 0:32 Approved by: Nikos Ch M.D. on 03/09/2025 at 0:34
--- NOTE | 2025-03-09 00:26 | DI.CT.S_ITS ---
PROCEDURE: CT HEAD/BRAIN WO CON INDICATIONS: freq falls, did not hit head TECHNIQUE: Noncontrast 4.5 mm thick angled axial sections acquired from the foramen magnum to the vertex, with coronal and sagittal reformats. For radiation dose reduction, the following was used: automated exposure control, adjustment of mA and/or kV according to patient size. COMPARISON: [facility], CT, CT HEAD/BRAIN WO CON, 10/06/2021, 15:02. [facility], CT, CT ABDOMEN PELVIS WO CON, 03/09/2025, 1:00. [facility], CR, XR HIP W PEL LT 2V, 03/09/2025, 0:20. [facility], CT, CT HEAD/BRAIN WO CON, 03/07/2025, 14:21. FINDINGS: Image quality: Diagnostic. Please note that the inferior-most cerebellum is not within the field of view of this study. CSF spaces: Basal cisterns are patent. No extra-axial fluid collections. The ventricles are symmetric in size and shape. Brain: No intracranial bleeds or mass effect. There is cerebral volume loss, with resultant ventricular and sulcal prominence. There are periventricular and deep white matter chronic small vessel ischemic changes. There is intracranial internal carotid artery atherosclerosis. Skull and face: Calvarium and visualized facial bones appear intact, without suspicious lesions. Sinuses: At least moderate mucosal thickening can be seen within the maxillary sinuses, left worse than right. At least moderate mucosal thickening can be seen within the ethmoid air cells. No abnormal fluid is seen within the mastoid air cells. IMPRESSION: No acute intracranial hemorrhage is seen. No acute intracranial pathology. Additional findings: Paranasal sinus disease Dictated by: Nikos Ch M.D. on 03/09/2025 at 0:22 Approved by: Nikos Ch M.D. on 03/09/2025 at 0:24
--- NOTE | 2025-03-09 00:29 | ED_ITS ---
HPI - Extremity Injury (Lower) General Chief Complaint: Extremity Injury, Lower Stated Complaint: fall, right hip pain Time Seen by Provider: 03/09/25 00:16 Source: EMS Mode of arrival: EMS History of Present Illness HPI Narrative: 85-year-old male slid off his bed earlier today, has had persisting right hip pain, has chronic low back pain, increased after falling off the bed earlier today. Has some pain radiating down in the right leg, history of prior sciatica. Also has frequent falls. Denies focal weakness face arm or leg. Denies focal numbness to face arm or leg. States that he has history of falls. Related Data Home Medications ?Medication ?Instructions ?Recorded ?Confirmed Calcium & Vitamin D3 600mg PO DAILY 02/10/25 Imodium AD 2mg PO DAILY 02/10/25 Vitamin B12 1000mcg PO DAILY 02/10/25 02/10/25 adult multivitamin PO DAILY 02/10/25 02/10/25 ascorbate calcium (vitamin C) 500 500 mg PO DAILY 01/1802/10/25 mg tablet cholecalciferol (vitamin D3) 50 50 mcg PO DAILY 02/10/25 mcg (2,000 unit) capsule flax seed oil PO DAILY 02/10/25 folic acid 800 mcg tablet 0.8 mg PO DAILY 02/10/25 ranitidine HCl 150 mg tablet mg PO DAILY PRN 02/10/25 02/10/25 Previous Rx's ?Medication ?Instructions ?Recorded citalopram 20 mg tablet 20 mg PO DAILY #100 tabs sulfasalazine 500 mg tablet 2,000 mg (4 x 500 mg) PO B ID #[id number] 02/10/25 tabs Allergies Allergy/AdvReac Type Severity Reaction Status Date / Time No Known Drug Allergies Allergy Verified 03/07/25 11:30 Patient History Medical History (Updated 03/09/25 @ 03:36 by Perry Epperson MD) Depression, unspecified Ulcerative colitis Frequent falls Social History household members: spouse Smoking Status: Never smoker alcohol intake frequency: 0-2 drinks per day Alcohol type: wine Exam Narrative Exam Narrative: GENERAL: Well-developed patient, in mild distress. HEAD: Atraumatic. Normocephalic. EYES: Pupils equal round and reactive. Extraocular motions intact. No scleral icterus. No injection or drainage. ENT: Nose without bleeding, purulent drainage. Throat without erythema, tonsillar hypertrophy or exudate. Airway patent. NECK: Trachea midline. Non tender CARDIOVASCULAR: Regular rate and rhythm without murmurs, gallops, or rubs. RESPIRATORY: Clear to auscultation. Breath sounds equal bilaterally. No wheezes, rales, or rhonchi. GASTROINTESTINAL: Abdomen soft, non-tender, nondistended. EXTREMITIES: Tenderness right trochanteric, right anterior hip, no limb length discrepancy, no external or internal rotation. Good distal foot perfusion, color, warmth. BACK: Nontender without deformity or crepitance. No flank tenderness. NEURO: AOx3. Motor functions grossly nonfocal. SKIN: No rash or erythema of visible areas Initial Vital Signs Initial Vital Signs: Vital Signs Temperature 99.2 F 03/08/25 23:29 Pulse Rate 79 03/08/25 23:29 Respiratory Rate 18 03/08/25 23:29 Blood Pressure 136/68 03/08/25 23:29 Pulse Oximetry 100 03/08/25 23:29 Oxygen Delivery Method Room Air 03/08/25 23:29 Course Orders Ordered: ED Orders 03/10/25 06:00 Basic Metabolic Panel DAILY Complete Blood Count AUTO DIFF DAILY Acetaminophen (Acetaminophen 325 Mg Tablet) 650 mg PO Q6H PRN PRN Reason: Fever/Mild Pain (1-3) Hydrocodone Bitart/Acetaminophen (Hydrocodone/Acet 5/325 Tablet) 1 tab PO Q4H PRN PRN Reason: Pain, Moderate (4-6) Last Admin: 03/09/25 06:17 Dose: 1 tab Documented By: REESE Aspirin (Aspirin Ec 81 Mg Tablet) 81 mg PO BID [facility] Bisacodyl (Bisacodyl 10 Mg Supp) 10 mg NH PRN PRN PRN Reason: Constipation Citalopram Hydrobromide (Citalopram 10 Mg Tablet) 20 mg PO DAILY [facility] Last Admin: 03/09/25 15:47 Dose: Not Given Documented By: MATTY Diphenhydramine HCl (Diphenhydramine 25 Mg Tablet) 50 mg PO Q6H PRN PRN Reason: mod to severe erythema, urticaria, or pruritis Diphenhydramine HCl (Diphenhydramine 50 Mg/Ml Vial) 50 mg IV Q6HR PRN PRN Reason: mild to moderate erythema, urticaria, or pruritis Docusate Sodium (Docusate 100 Mg Capsule) 100 mg PO BID [facility] Sodium Chloride (Normal Saline 0.9%) 1,000 mls @ 100 mls/hr IV CONT [facility]KE Last Admin: 03/09/25 15:43 Dose: 100 mls/hr Documented By: Infusion: 03/09/25 15:20 Dose: Infused Documented By: Admin: 03/09/25 05:20 Dose: 100 mls/hr Documented By: REESE Lactated Ringer's (Lactated Ringers) 1,000 mls @ 100 mls/hr IV CONT [facility] Last Admin: 03/09/25 15:49 Dose: 100 mls/hr Documented By: MATTY Cefazolin Sodium 1 gm/ Sodium (Chloride) 100 mls @ 200 mls/hr IV Q8H [facility] Stop: 03/10/25 04:29 Morphine Sulfate (Morphine 4 Mg/Ml Inj) 3 mg IV Q2HR PRN PRN Reason: Pain, Severe (7-10) Last Admin: 03/09/25 10:12 Dose: 3 mg Documented By: MATTY Naloxone HCl (Naloxone 0.4 Mg/Ml Vial) 0.2 mg IV Q2MIN PRN PRN Reason: Opiate Reversal Ondansetron HCl (Ondansetron 4 Mg/2 Ml Inj) 4 mg IV Q4HR PRN PRN Reason: Nausea And Vomiting Ondansetron HCl (Ondansetron 4 Mg Odt) 4 mg PO Q4HR PRN PRN Reason: Nausea And Vomiting Polyethylene Glycol (Polyethylene Glycol 3350 17 Gm Powd.Pack) 17 gm PO DAILY [facility] Sennosides (Sennosides 8.6 Mg Tablet) 17.2 mg PO BEDTIME [facility] Sodium Biphosphate/Sodium Phosphate (Fleets Enema) 1 each NH PRN PRN PRN Reason: Constipation Discontinued Medications Benzocaine (Benzocaine/Menthol 1 Javi Pkt) 1 each PO PRN PRN PRN Reason: Sore Throat Bupivacaine HCl/Epinephrine Bitart (Bupivacaine 0.25% W/ Epi (Pf) 30 Ml Vial) 30 ml INJ INTRA-OP ONE Stop: 03/09/25 13:23 Last Admin: 03/09/25 12:00 Dose: 30 ml Documented By: VALDEMAR Fentanyl (Fentanyl 100 Mcg/2 Ml Inj) 0 mcg IV Q5MIN PRN PRN Reason: Pain, Severe (7-10) Fentanyl (Fentanyl 100 Mcg/2 Ml Inj) 0 mcg IV Q5M PRN PRN Reason: Pain, Moderate (4-6) Fentanyl (Fentanyl 100 Mcg/2 Ml Inj) 0 mcg IV Q5M PRN PRN Reason: Pain, Severe (7-10) Hydromorphone HCl (Hydromorphone 1 Mg/Ml Syringe) 1 mg IM NOW ONE Stop: 03/09/25 00:25 Last Admin: 03/09/25 00:43 Dose: 1 mg Documented By: CRUZ Hydromorphone HCl (Hydromorphone Hcl 0.5 Mg/0.5 Ml Syringe) 0.5 mg IV NOW ONE Stop: 03/09/25 02:08 Last Admin: 03/09/25 02:09 Dose: 0.5 mg Documented By: CRUZ Hydromorphone HCl (Hydromorphone 1 Mg/Ml Syringe) 0 mg IV Q5MIN PRN PRN Reason: Pain, Mild (1-3) Hydromorphone HCl (Hydromorphone 1 Mg/Ml Syringe) 0 mg IV Q5MIN PRN PRN Reason: Pain, Moderate (4-6) Hydromorphone HCl (Hydromorphone 1 Mg/Ml Syringe) 0 mg IV Q5MIN PRN PRN Reason: Pain, Severe (7-10) Lactated Ringer's (Lactated Ringers) 1,000 mls @ 42 mls/hr IV CONT LUKE Last Admin: 03/09/25 10:46 Dose: 42 mls/hr Documented By: ROSE Lactated Ringer's (Lactated Ringers) 1,000 mls @ 120 mls/hr IV CONT [facility] Acetaminophen (Ofirmev) 1,000 mg in 100 mls @ 400 mls/hr IV NOW ONE Stop: 03/09/25 12:01 Last Infusion: 03/09/25 13:23 Dose: Infused Documented By: Admin: 03/09/25 13:18 Dose: 400 mls/hr Documented By: ROSE Cefazolin Sodium/Dextrose (Ancef) 100 mls @ 200 mls/hr IV NOW ONE Stop: 03/09/25 12:42 Last Infusion: 03/09/25 12:13 Dose: Infused Documented By: CRUZ(2) Admin: 03/09/25 11:45 Dose: 200 mls/hr Documented By: NANY) Naloxone HCl (Naloxone 0.4 Mg/Ml Vial) 0.2 mg IV Q2MIN PRN PRN Reason: Opiate Reversal Ondansetron HCl (Ondansetron 4 Mg/2 Ml Inj) 4 mg IV Q8HR PRN PRN Reason: Nausea And Vomiting Ondansetron HCl (Ondansetron 4 Mg/2 Ml Inj) 4 mg IV NOW PRN PRN Reason: Nausea And Vomiting Oxycodone HCl (Oxycodone Ir 5 Mg Tablet) 5 mg PO [place] PRN PRN Reason: Mild or moderate pain Vital Signs Vital signs: Vital Signs - 8 hr 03/08/25 23:29 03/09/25 02:13 03/09/25 02:14 Temperature 99.2 F Pulse Rate 79 86 89 Respiratory Rate 18 Blood Pressure 136/68 Pulse Oximetry 100 92 93 Oxygen Delivery Method Room Air Room Air 03/09/25 02:14 03/09/25 02:30 03/09/25 02:30 Temperature Pulse Rate 85 Respiratory Rate Blood Pressure 124/62 135/68 Pulse Oximetry 93 Oxygen Delivery Method 03/09/25 03:03 Temperature Pulse Rate 91 H Respiratory Rate Blood Pressure Pulse Oximetry 96 Oxygen Delivery Method MDM - Extremity Injury (Lower) Lab Data Attestation: I reviewed the patient's lab results. Lab results narrative: White blood cell count 7400, hemoglobin 12.1, platelets adequate. Glucose 144. Normal renal function. Serum CO2 21 mildly decreased. Electrolytes normal. Liver functions normal. 03/09/25 02:04 03/09/25 02:04 Labs: Lab Results 03/09/25 Range/Units 02:04 WBC 7.4 (4.5-11.0) X10^3/uL RBC 3.50 L (4.5-5.9) X10^6/uL Hgb 12.1 L (13.5-17.5) g/dL Hct 34.9 L (41-53) % MCV 100.0 (80-100) fL MCH 34.6 H (26-34) PG MCHC 34.7 (30-36) % RDW 13.0 (11.6-14.8) % Plt Count 152 (150-400) X10^3/uL Neut % (Auto) 79.0 H (50-75) % Lymph % (Auto) 9.1 L (25-40) % [place] % (Auto) 10.0 (3-14) % Eos % (Auto) 0.2 L (2-4) % Baso % (Auto) 1.7 (0-2) % Neut # (Auto) 5800 (6750-7299) /uL Lymph # (Auto) 700 L (2414-3576) /uL [place] # (Auto) 700 (0-900) /uL Eos # (Auto) 0 (0-450) /uL Baso # (Auto) 100 (0-100) /uL PT 13.1 H (9.4-12.5) SECONDS INR 1.2 (0.9-1.3) Sodium 137 (137-145) mmol/L Potassium 3.6 (3.4-5.1) mmol/L Chloride 107 (98-107) mmol/L Carbon Dioxide 21 L (22-32) mmol/L BUN 12 (9-20) mg/dL Creatinine 0.71 (0.66-1.25) mg/dL Estimated GFR > 60 (>60) mL/min BUN/Creatinine Ratio 16.9 (6-22) Glucose 144 H (70-99) mg/dL Calcium 8.6 (8.4-10.2) mg/dL Total Bilirubin 1.0 (0.2-1.3) mg/dL AST 54 (17-59) IU/L ALT 42 (<50) IU/L Alkaline Phosphatase 91 (38-126) U/L Total Protein 7.3 (6.3-8.2) g/dL Albumin 4.2 (3.5-5.0) g/dL Globulin 3.1 (1.7-4.1) g/dL Albumin/Globulin Ratio 1.4 (1.0-2.8) Imaging Data CT scan - head: Radiologist's Impression: Dayron Martinezrenard Preciado??85??M??1940 ? Allergy/Adv: No Known Drug Allergies [address] [address] [address] Scan Report Signed Patient: JuanMaxx Preciado MR#: [id number] : 1940 Acct:[id number] Age/Sex: 85 / M Date of Service: 03/09/25 Loc: ED Accession Number: [id number] Procedure: CT head/brain wo con Ordering Provider: Perry Epperson MD PROCEDURE: CT HEAD/BRAIN WO CON INDICATIONS: freq falls, did not hit head TECHNIQUE: Noncontrast 4.5 mm thick angled axial sections acquired from the foramen magnum to the vertex, with coronal and sagittal reformats. For radiation dose reduction, the following was used: automated exposure control, adjustment of mA and/or kV according to patient size. COMPARISON: [facility], CT, CT HEAD/BRAIN WO CON, 10/06/2021, 15:02. [facility], CT, CT ABDOMEN PELVIS WO CON, 03/09/2025, 1:00. [facility], CR, XR HIP W PEL LT 2V, 03/09/2025, 0:20. [facility], CT, CT HEAD/BRAIN WO CON, 03/07/2025, 14:21. FINDINGS: Image quality: Diagnostic. Please note that the inferior-most cerebellum is not within the field of view of this study. CSF spaces: Basal cisterns are patent. No extra-axial fluid collections. The ventricles are symmetric in size and shape. Brain: No intracranial bleeds or mass effect. There is cerebral volume loss, with resultant ventricular and sulcal prominence. There are periventricular and deep white matter chronic small vessel ischemic changes. There is intracranial internal carotid artery atherosclerosis. Skull and face: Calvarium and visualized facial bones appear intact, without suspicious lesions. Sinuses: At least moderate mucosal thickening can be seen within the maxillary sinuses, left worse than right. At least moderate mucosal thickening can be seen within the ethmoid air cells. No abnormal fluid is seen within the mastoid air cells. IMPRESSION: No acute intracranial hemorrhage is seen. No acute intracranial pathology. Additional findings: Paranasal sinus disease Dictated by: Nikos Ch M.D. on 03/09/2025 at 0:22 Approved by: Nikos Ch M.D. on 03/09/2025 at 0:24 CT scan - abdomen/pelvis: Radiologist's Impression: [address] [address] [address] Scan Report Signed Patient: Maxx Martinez MR#: [id number] : 1940 Acct:[id number] Age/Sex: 85 / M Date of Service: 03/09/25 Loc: ED Accession Number: [id number] Procedure: CT abdomen pelvis wo con Ordering Provider: Perry Epperson MD PROCEDURE: CT ABDOMEN PELVIS WO CON INDICATIONS: right hip, low back pain, after GLF TECHNIQUE: CT of the abdomen and pelvis was obtained without intravenous contrast. Coronal and sagittal reformats were performed. For radiation dose reduction, the following was used: automated exposure control, adjustment of mA and/or kV according to patient size. COMPARISON: [facility], CT, CT HEAD/BRAIN WO CON, 03/09/2025, 1:00. [facility], CR, XR HIP W PEL RT 2V, 03/09/2025, 0:20. [facility], CT, CT HEAD/BRAIN WO CON, 03/07/2025, 14:21. FINDINGS: Image quality: There is streak artifact seen through the upper abdomen. Lower Chest: Mild scarring/fibrotic change can be seen at the lung bases. ABDOMEN: Liver: No contour-deforming mass. Gallbladder: No radiopaque gallstones or wall thickening. Biliary ducts: No biliary dilation. Pancreas: No ductal dilation. Spleen: Size is within normal limits. Adrenal Glands: No adrenal nodules. Kidneys and Ureters: No hydronephrosis. No contour-deforming mass. Stomach and Bowel: Normal colonic caliber, without significant wall thickening. Distal colonic diverticulosis is seen, latesha findings active diverticulitis. No dilated loops of small bowel are seen. A normal appendix is noted. Peritoneum: No abnormal intraperitoneal fluid. No free air. Ventral Wall: No significant hernia. Abdominal Nodes: No retroperitoneal or mesenteric adenopathy by size criteria. Vessels: Aorta and inferior vena cava are normal in size. Atherosclerotic calcification is noted. PELVIS: Pelvic Organs: Unremarkable. Bladder: Unremarkable. Pelvic Nodes: No enlarged lymph nodes. Miscellaneous: No inguinal hernias are seen. Bones: No aggressive osseous abnormality. The known right femoral neck fracture is seen. No hip dislocation. No fractures of the bones of the pelvis can be seen. Age-appropriate bony degenerative changes are seen. IMPRESSION: Right femoral neck fracture. No definite additional posttraumatic abnormality seen. Dictated by: Nikos Ch M.D. on 03/09/2025 at 0:32 Approved by: Nikos Ch M.D. on 03/09/2025 at 0:34 X-ray right hip with pelvis: Radiologist's Impression: [address] [address] XRay Report Signed Patient: Maxx Martinez MR#: [id number] : 1940 Acct:[id number] Age/Sex: 85 / M Date of Service: 03/09/25 Loc: ED Accession Number: [id number] Procedure: XR hip w pel LT 2V Ordering Provider: Perry Epperson MD PROCEDURE: XR HIP W PEL IF DONE LT 2V INDICATIONS: fall, L hip pain TECHNIQUE: AP pelvis with lateral view(s) of the right hip(s). COMPARISON: None. FINDINGS: Bones: There is a mildly displaced femoral neck fracture seen, which is best demonstrated on the lateral view. No fractures of the bones of the pelvis can be seen. Moderate bilateral hip degenerative change can be seen. Age-appropriate lower lumbar spine degenerative changes are noted. Soft tissues: The visualized bowel gas pattern is normal. No suspicious soft tissue calcifications. IMPRESSION: Mildly displaced right femoral neck fracture. Dictated by: Nikos Ch M.D. on 03/09/2025 at 0:04 Approved by: Nikos Ch M.D. on 03/09/2025 at 0:05 ECG Data Attestation: I personally reviewed and interpreted this ECG as follows: Interpretation: 0212, pre-op study, normal sinus rhythm with rate of 87, no obvious ST segment elevation or depression changes. NH 148, QRS 74, QTC 471. [facility] Narrative Medical decision making narrative: 85-year-old male slid off bed earlier this morning, exacerbation of chronic low back pain, some radiation to the right leg, increasing right lateral hip pain. Also recent falls. No obvious craniofacial trauma. Denies neck pain. Denies upper back pain. CT abdomen and pelvis to visualize hip and pelvis as well as lumbar spine. CT head noncontrast study. IM Dilaudid dose. X-ray right hip with pelvis, shows mildly displaced right femoral neck fracture. CT head, no acute changes. See radiology report. CT abdomen and pelvis noncontrast. Shows right femoral neck fracture. No mention of any pelvic fractures, nor lumbar spine fracture changes. See radiology report. Still having pain, IV to be placed, IV Dilaudid. We will send preoperative studies chest x-ray, EKG, CBC, CMP, INR, urinalysis. Lab data: White blood cell count 7400, hemoglobin 12.1, platelets adequate. Glucose 144. Normal renal function. Serum CO2 21 mildly decreased. Electrolytes normal. Liver functions normal. PT/INR 1.2 normal. Chest x-ray, no acute changes. Preoperative study. See tele radiology report. 0315, case discussed with orthopedics Dr. Daniel who will consult, requests admission to hospitalist service. Hospitalist paged. [phone], case discussed with hospitalist Dr. Dias who accepts patient for admission to inpatient service Critical Care Time Critical Care Time Total Critical Care Time: 35 Attestation: The high probability of a clinically significant, sudden or life threatening deterioration of the [Orthopedic, musculoskeletal] system(s) required my full and direct attention, intervention and personal management. The aggregate critical care time was [35] minutes. This time is in addition to time spent performing reported procedures but includes the following: [x] Data Review and interpretation [x] Patient assessment and monitoring of vital signs [x] Documentation [x] Medication orders and management Discharge Plan Departure Patient Disposition: Admitted As Inpatient Clinical Impression: Closed fracture of neck of right femur Admit Date/Time: 03/09/25 03:34 Admit Provider: Steven Dias
--- NOTE | 2025-03-09 01:54 | DI.RAD.S_ITS ---
PROCEDURE: XR CHEST 1V INDICATIONS: pre-op, hip fx TECHNIQUE: One view of the chest was acquired. COMPARISON: [facility], CR, XR CHEST 1V, 03/10/2025, 5:54. [facility], CR, XR CHEST 1V, 03/07/2025, 11:41. FINDINGS: Surgical changes and devices: None. Lungs and pleura: Increased pulmonary markings. Low lung volumes. No pleural effusions or pneumothorax. Mediastinum: Mediastinal contours appear normal. Heart size is normal. Bones and chest wall: No suspicious bony lesions. Overlying soft tissues appear unremarkable. IMPRESSION: Low lung volumes. Increased pulmonary markings. Findings could be due to atelectasis/vascular crowding. Difficult to exclude pulmonary edema. Recommend clinical correlation. No significant discrepancy with the overnight preliminary interpretation. Dictated by: Kishan Golden M.D. on 03/10/2025 at 8:08 Approved by: Kishan Golden M.D. on 03/10/2025 at 8:10
--- NOTE | 2025-03-09 01:54 | EKG_ITS ---
[address] [address] Test Date: 2025-03-09 Pat Name: Maxx Martinez Department: [facility] Room: Gender: Male [employer] President [employer] (Ex ): [place] : 1940 Requested By: Order Number: [id number] Reading MD: Joseph Cunningham MD Measurements Intervals [place] Rate: 87 P: 36 CT: 148 QRS: 10 QRSD: 74 T: 32 QT: 392 QTc: 471 Interpretive Statements Normal sinus rhythm Nonspecific ST abnormality Electronically Signed On 03-09-2025 14:44:22 PDT by Joseph Cunningham MD
--- NOTE | 2025-03-09 02:00 | PC.NURSE ---
pt updated on test results and plan of care
[2025-03-09 02:16] LABS: Add Manual Diff / Slide Review NO; Hematocrit 34.9 % (41-53); Hemoglobin 12.1 g/dL (13.5-17.5); Lymphocytes Absolute Auto 700 /uL (1100-4500); Mean Corpuscular HGB Conc 34.7 % (30-36); Mean Corpuscular Hemoglobin 34.6 PG (26-34); Mean Corpuscular Volume 100.0 fL (80-100); Platelet Count 152 X10^3/uL (150-400)
--- NOTE | 2025-03-09 02:19 | PC.NURSE ---
Oxygen dropped a little after pain medications placed on 1 L NC
[2025-03-09 02:31] LABS: Alanine Aminotransferase 42 IU/L (<50); Albumin 4.2 g/dL (3.5-5.0); Albumin Globulin Ratio 1.4 (1.0-2.8); Alkaline Phosphatase 91 U/L (38-126); Blood Urea Nitrogen 12 mg/dL (9-20); Calcium 8.6 mg/dL (8.4-10.2); Carbon Dioxide 21 mmol/L (22-32); Chloride 107 mmol/L (98-107); Estimated Glomerular Filt Rate > 60 mL/min (>60); Globulin 3.1 g/dL (1.7-4.1); Glucose 144 mg/dL (70-99); HEMOLYSIS < 15 (0-50); Potassium 3.6 mmol/L (3.4-5.1); Sodium 137 mmol/L (137-145); Total Protein 7.3 g/dL (6.3-8.2)
[2025-03-09 03:03] LABS: INR 1.2 (0.9-1.3); Prothrombin Time 13.1 SECONDS (9.4-12.5)
[2025-03-09] MEDS: SODIUM CHLORIDE 0.9% 1,000 ML 100 ML IV ×2 (05:20→15:43)
[2025-03-09 06:01] LABS: Appearance Urine UA CLEAR; Bilirubin Urine UA NEGATIVE (NEGATIVE); Color Urine UA YELLOW; Glucose Urine UA NEGATIVE (Negative); Ketones Urine UA TRACE (NEGATIVE); Leukocyte Esterase Urine UA NEGATIVE (NEGATIVE); Nitrite Urine UA NEGATIVE (Negative); Occult Blood Urine UA NEGATIVE (Negative); Protein Urine UA TRACE (Negative); Specific Gravity Urine UA 1.025 (1.000-1.035); Urobilinogen Urine UA 0.2 E.U./dL (0.2); pH Urine UA 5.5 (4.5-8.0)
[2025-03-09 06:10] LABS: Culture Indicated Urine Cult Not Indicated
--- NOTE | 2025-03-09 06:24 | PM.HP.1 ---
History of Present Illness History of Present Illness Date Patient Seen: 03/09/25 Time Patient Seen: 06:24 Chief complaint: fall, right hip pain Narrative: 82-year-old male with past medical history of depression/anxiety and ulcerative colitis presents with a fall and right hip pain. Per patient report, the patient excellently fell off his bed today and now his right hip. The patient does have chronic lower back pain and states that his pain slightly worsens in his back as well. Patient otherwise denies any head injury, loss of consciousness, fever, chills or nausea, vomiting, diarrhea, chest pain or shortness of breath. In emergency room, patient remains dynamically and saturating well on room air. Labs were relatively benign including coags. CT scan of the head shows no acute finding. X-ray as well as CT abdomen pelvis shows right femoral neck fracture. Orthopedic surgeon was consulted and admit admission for pain control and possible surgical intervention. [facility] Medical History (Updated 03/09/25 @ 03:36 by Perry Epperson MD) Depression, unspecified Ulcerative colitis Frequent falls Social History household members: spouse Smoking Status: Never smoker Meds Home Medications and Allergies Home Medications ?Medication ?Instructions ?Recorded ?Confirmed ?Type Calcium & Vitamin D3 600mg PO DAILY 02/10/25 History Imodium AD 2mg PO DAILY 02/10/25 History Vitamin B12 1000mcg PO DAILY 02/10/25 02/10/25 History adult multivitamin PO DAILY 02/10/25 02/10/25 History ascorbate calcium (vitamin C) 500 500 mg PO DAILY 02/10/25 02/10/25 History mg tablet cholecalciferol (vitamin D3) 50 50 mcg PO DAILY 02/10/25 02/10/25 History mcg (2,000 unit) capsule citalopram 20 mg tablet 20 mg PO DAILY #100 tabs 02/10/25 02/10/25 Rx flax seed oil PO DAILY 02/10/25 History folic acid 800 mcg tablet 0.8 mg PO DAILY 02/10/25 02/10/25 History ranitidine HCl 150 mg tablet mg PO DAILY PRN 02/10/25 02/10/25 History sulfasalazine 500 mg tablet 2,000 mg (4 x 500 mg) PO BID #400 02/10/25 02/10/25 Rx tabs Allergies Allergy/AdvReac Type Severity Reaction Status Date / Time No Known Drug Allergies Allergy Verified 03/07/25 11:30 Review of Systems Review of Systems ROS: Yes All systems reviewed with the patient and are negative except as otherwise documented Exam Vital Signs (past 8 hours): - 03/08/25 23:29 03/09/25 02:13 03/09/25 02:14 Temperature 99.2 F Pulse Rate 79 86 89 Respiratory Rate 18 Blood Pressure 136/68 Pulse Oximetry 100 92 93 Oxygen Delivery Method Room Air Room Air Oxygen Flow Rate 03/09/25 02:14 03/09/25 02:30 03/09/25 02:30 Temperature Pulse Rate 85 Respiratory Rate Blood Pressure 124/62 135/68 Pulse Oximetry 93 Oxygen Delivery Method Oxygen Flow Rate 03/09/25 03:03 03/09/25 03:30 03/09/25 03:55 Temperature Pulse Rate 91 H 88 Respiratory Rate 16 Blood Pressure 139/61 Pulse Oximetry 96 93 Oxygen Delivery Method Oxygen Flow Rate 03/09/25 04:30 Temperature 97.3 F L Pulse Rate 89 Respiratory Rate 16 Blood Pressure 128/61 Pulse Oximetry 94 Oxygen Delivery Method Oxygen Flow Rate 0 Oxygen Delivery Method Room Air Oxygen Flow Rate 0 Narrative Exam Narrative: Physical Exam: GENERAL: The patient is not in any acute distressed. Awake and alert. HEENT: Nonicteric sclerae, PERRLA, EOMI. Oropharynx clear. Moist mucous membranes. Conjunctivae appear well perfused. HEART: Regular rate and rhythm without murmurs. No lower extremities edema. LUNGS: Clear to auscultation bilaterally. No wheezing, crackles or rhonchi ABDOMEN: Soft, positive bowel sounds, nontender. SKIN: No rash, no excessive bruising, petechiae, or purpura. NEUROLOGIC: AxO x 3. Limimted movement in RLEs due to right hip pain. Cranial nerves II-XII intact without motor/sensory deficit. Objective Labs 03/09/25 02:04 03/09/25 02:04 Labs: Laboratory Results - last 24 hr 03/09/25 03/09/25 02:04 04:51 WBC 7.4 RBC 3.50 L Hgb 12.1 L Hct 34.9 L MCV 100.0 MCH 34.6 H MCHC 34.7 RDW 13.0 Plt Count 152 Neut % (Auto) 79.0 H Lymph % (Auto) 9.1 L Rowan % (Auto) 10.0 Eos % (Auto) 0.2 L Baso % (Auto) 1.7 Neut # (Auto) 5800 Lymph # (Auto) 700 L Rowan # (Auto) 700 Eos # (Auto) 0 Baso # (Auto) 100 PT 13.1 H INR 1.2 Sodium 137 Potassium 3.6 Chloride 107 Carbon Dioxide 21 L BUN 12 Creatinine 0.71 Estimated GFR > 60 BUN/Creatinine Ratio 16.9 Glucose 144 H Calcium 8.6 Total Bilirubin 1.0 AST 54 ALT 42 Alkaline Phosphatase 91 Total Protein 7.3 Albumin 4.2 Globulin 3.1 Albumin/Globulin Ratio 1.4 Urine Color Yellow Urine Appearance Clear Urine pH 5.5 Ur Specific [place] 1.025 Urine Protein Trace H Urine Glucose (UA) Negative Urine Ketones Trace H Urine Occult Blood Negative Urine Nitrate Negative Urine Bilirubin Negative Urine Urobilinogen 0.2 Ur Leukocyte Esterase Negative Urine RBC None seen Urine WBC None seen Ur Squamous Epith Cells None seen Urine Bacteria None seen Ur Culture Indicated? Cult not indicated Vol Urine Centrifuged 10ml (spun) Assessment & Plan Assessment & Plan narrative: Fall with right hip fracture. New patient to medical telemetry. NPO. IV fluid. Pain control. Patient is very stable and cleared for OR from a medical standpoint. Appreciate orthopedic surgery for further management. Ulcerative colitis. No sign of flareup. Monitor for now. Depression. Resume home medication resume antidepressant. DVT prophylax SCDs for now in anticipation of surgery. Code Status DNR/DNI Disposition likely home versus rehab in 2 days - As the provider of this telehealth evaluation, requested by the patient's evaluating physician, I attest that I introduced myself to the patient, provided my credentials and determined that telemedicine via a real-time, 2 way interactive audio and video platform is an appropriate and effective means of providing this service. - I reviewed the patient's chart and had a discussion with the member of the patient's treatment team. - The patient and I mutually agreed with continuation of this evaluation via telemedicine. The patient consented for the telemedicine evaluation. - This virtual encounter was taken place from [place] by Dr. Steven Dias. The patient was evaluated at [facility]. The encounter was approximately 35 minutes. The nurse was present during the entire time of the encounter and was able assists with the stethoscope to listen to the patients. Time-Based Coding :: [TOTAL MINUTES] spent with patient and on the chart (including review of chart, obtaining history, exam, reviewing outside data, placing orders, documenting exam and treatment plan, and counseling patient) on [DATE]. Quality VTE Deep Vein Thrombosis/Pulmonary Embolism Present on Admission: No
--- NOTE | 2025-03-09 06:28 | PC.NURSE ---
Addendum entered by Laila Taylor RN 03/09/25 06:40: Pt voided via urinal, UA sent, Med at 0620 for discomfort Pt oriented to room & call light Call light w/in reach, bed alarm on for pt safety. Continue w/plan of care. Original Note: Pt arrived approximately 0440 Brought in by EMS after a slide out of bed Fx right femoral head. Pt had Covid 19, pt was in this ED on 03/07 testing positive. A/O
[2025-03-09] MEDS: MORPHINE 4 MG/ML INJ 3 MG IV ×2 (10:12→20:19)
--- NOTE | 2025-03-09 10:17 | PC.NURSE ---
Patient is A&OX4, VSS, afebrile on RA. Patient is able to use the urinal, VSS. He complains of severe pain with movement. PRE OP RN arrived at 1010 a.m. to transport patient via bed. His accompanies them to the PRE OP area. He is given 3 mg IV morphine for pain 01/26.
[2025-03-09] MEDS: LACTATED RINGERS 1,000 ML 42 ML IV (10:46)
--- NOTE | 2025-03-09 10:46 | PM.CN.IH.1 ---
History of Present Illness Consult details Chief complaint: fall, right hip pain Narrative: CHIEF COMPLAINT - Right femoral neck fracture HISTORY OF PRESENT ILLNESS The patient is an 85-year-old male who fell out of bed last night, sustaining a right femoral neck fracture. The fracture is minimally displaced and valgus impacted. The patient reports that any movement worsens the pain, while rest partially alleviates it. The pain has been present since the time of injury and does not radiate. PERTINENT PAST MEDICAL HISTORY - Ulcerative colitis - Depression - COVID-19 positive on admission PERTINENT MEDICATIONS - Sulfasalazine for ulcerative colitis SOCIAL HISTORY - Lives independently with his - Uses a cane occasionally for ambulation PHYSICAL EXAM - Constitutional: Patient is mentating appropriately, conversant, and not in acute distress. Alert and oriented to person place and time - MSK: Hip held in a position of flexion and internal rotation. No open wounds. Intact sensorimotor function distally. IMAGING: - Plain films of the pelvis and hip as well as a CT scan of the hip demonstrate a valgus impacted femoral neck with minimal displacement anteriorly with maintenance of a cortical reduction there and impaction posteriorly. ASSESSMENT 85-year-old male with a minimally displaced valgus impacted right femoral neck fracture. He also has COVID which is symptomatic and his reports that he had had some hallucinations over the last 48 hours associated with the fever from the COVID. He and his both clarified that he is a DNR although that will be lifted for the surgery it will be reinstated postoperatively. PLAN - The patient has consented to surgery after a detailed discussion of the risks and benefits. I discussed with him in detail that a total hip arthroplasty would be a very reasonable option in this situation which would eliminate the fracture site and restore mobility. Fixation is also a reasonable option given the minimal displacement. He strongly prefers fixation if at all possible and understands the potential risk of conversion to total hip arthroplasty for nonunion or avascular necrosis should this fail to heal. I will plan to proceed with fixation rather than replacement given his understanding of the relative merits of each option and follow him closely in the outpatient setting to monitor healing. - The surgery is planned for today. - Additional risks discussed include medical complications, need for additional surgery, damage to surrounding structures, infection, blood transfusion, and potential for non-union or avascular necrosis. - Postoperative plan includes allowing full weight bearing with the use of a walker initially and continuation of using a cane as needed. - The patient will be assessed for mobility to determine if he can safely return home or if a temporary stay in a nursing facility is needed. He strongly prefers to return home. - The patient is a DNR, but the order will be lifted during the surgery and reinstated postoperatively. - The patient will follow up in clinic with [facility] with routine x-rays and clinical assessments to monitor healing. - Coordination with Dr. Spencer for osteoporosis evaluation and management if needed. Meds Home Medications and Allergies Home Medications ?Medication ?Instructions ?Recorded ?Confirmed ?Type Calcium & Vitamin D3 600mg PO DAILY 02/10/25 History Imodium AD 2mg PO DAILY 02/10/25 History Vitamin B12 1000mcg PO DAILY 02/10/25 02/10/25 History adult multivitamin PO DAILY 02/10/25 02/10/25 History ascorbate calcium (vitamin C) 500 500 mg PO DAILY 02/10/25 02/10/25 History mg tablet cholecalciferol (vitamin D3) 50 50 mcg PO DAILY 02/10/25 02/10/25 History mcg (2,000 unit) capsule citalopram 20 mg tablet 20 mg PO DAILY #100 tabs 02/10/25 02/10/25 Rx flax seed oil PO DAILY 02/10/25 History folic acid 800 mcg tablet 0.8 mg PO DAILY 02/10/25 02/10/25 History ranitidine HCl 150 mg tablet mg PO DAILY PRN 02/10/25 02/10/25 History sulfasalazine 500 mg tablet 2,000 mg (4 x 500 mg) PO BID #400 02/10/25 02/10/25 Rx tabs Allergies Allergy/AdvReac Type Severity Reaction Status Date / Time No Known Drug Allergies Allergy Verified 03/07/25 11:30 Exam Vital Signs (past 8 hours): - 03/09/25 03:03 03/09/25 03:30 03/09/25 03:55 Temperature Pulse Rate 91 H 88 Respiratory Rate 16 Blood Pressure 139/61 Pulse Oximetry 96 93 Oxygen Delivery Method Oxygen Flow Rate 03/09/25 04:30 03/09/25 10:41 Temperature 97.3 F L 97.7 F Pulse Rate 89 93 H Respiratory Rate 16 16 Blood Pressure 128/61 144/67 H Pulse Oximetry 94 84 L Oxygen Delivery Method Room Air Oxygen Flow Rate 0 Oxygen Delivery Method Room Air Oxygen Flow Rate 0 Objective Labs 03/09/25 02:04 03/09/25 02:04 Labs: Laboratory Results - last 24 hr 03/09/25 03/09/25 02:04 04:51 WBC 7.4 RBC 3.50 L Hgb 12.1 L Hct 34.9 L MCV 100.0 MCH 34.6 H MCHC 34.7 RDW 13.0 Plt Count 152 Neut % (Auto) 79.0 H Lymph % (Auto) 9.1 L [place] % (Auto) 10.0 Eos % (Auto) 0.2 L Baso % (Auto) 1.7 Neut # (Auto) 5800 Lymph # (Auto) 700 L [place] # (Auto) 700 Eos # (Auto) 0 Baso # (Auto) 100 PT 13.1 H INR 1.2 Sodium 137 Potassium 3.6 Chloride 107 Carbon Dioxide 21 L BUN 12 Creatinine 0.71 Estimated GFR > 60 BUN/Creatinine Ratio 16.9 Glucose 144 H Calcium 8.6 Total Bilirubin 1.0 AST 54 ALT 42 Alkaline Phosphatase 91 Total Protein 7.3 Albumin 4.2 Globulin 3.1 Albumin/Globulin Ratio 1.4 Urine Color Yellow Urine Appearance Clear Urine pH 5.5 Ur Specific [place] 1.025 Urine Protein Trace H Urine Glucose (UA) Negative Urine Ketones Trace H Urine Occult Blood Negative Urine Nitrate Negative Urine Bilirubin Negative Urine Urobilinogen 0.2 Ur Leukocyte Esterase Negative Urine RBC None seen Urine WBC None seen Ur Squamous Epith Cells None seen Urine Bacteria None seen Ur Culture Indicated? Cult not indicated Vol Urine Centrifuged 10ml (spun) [facility] Medical History (Updated 03/09/25 @ 03:36 by Perry Epperson MD) Depression, unspecified Ulcerative colitis Frequent falls Social History household members: spouse Tobacco & Substance Use Smoking Status: Never smoker Assessment & Plan Time-Based Coding :: [TOTAL MINUTES] spent with patient and on the chart (including review of chart, obtaining history, exam, reviewing outside data, placing orders, documenting exam and treatment plan, and counseling patient) on [DATE]. PROFEE Charge Codes Inpatient or Observation consultation: [id number]
--- NOTE | 2025-03-09 11:57 | SUR.OPER ---
Supine on padded Hope table with bilateral legs secured in padded positioning boots and suspended in positioning spars, operative leg in traction per surgeon. Head on one pillow. Arm on non-operative side secured on padded armboard <90 degrees abduction. Arm on operative side padded and resting across chest then secured with tape over sheet. Padded perineal post in place per surgeon. Surgeon in room to assist with positioning and approve final position. All pressure points padded and covered.
[2025-03-09] MEDS: BUPivacaine 0.25% W/ EPI (PF) 30 ML VIAL INJ (12:00)
--- NOTE | 2025-03-09 12:54 | P.OP_ITS ---
Operative Date/Time/Diagnoses Date of procedure: 03/09/25 Time of procedure: 10:30 Pre-op diagnosis: Valgus impacted right femoral neck fracture Post-op diagnosis: same Procedure & Clinicians Procedure: Closed reduction and intramedullary nailing of right femoral neck fracture Same procedure(s) as scheduled: Yes Surgeon: Keith Daniel Click Yes if Unassisted: Yes Anesthesia Type: General and Local Operative Notes Findings: Right femoral neck fracture Applied: implant(s) Estimated Blood Loss (mL): 75 Procedure in detail: Right Hip Intramedullary Nailing for Valgus Impacted Femoral Neck Fracture Implants: * [employer] 10 mm x 20 cm InterTAN nail * 95 mm proximal lag screw * 90 mm proximal compression screw * 32.5 mm distal interlocking screw Procedure in detail: This patient presented to the hospital for hip pain and was found to have a femoral neck fracture on radiographic evaluation in the emergency department. ?As the on-call orthopedic surgeon I was consulted for management. ?The patient was admitted to the medicine service here at [facility] and received a preoperative evaluation to ensure that no optimization measures would be necessary to minimize the patient's risk for complications around surgery prior to proceeding with intramedullary nailing. ?After assessment from the organizational development specialist as well as anesthesia the patient was deemed optimized for surgery. ?Risks and benefits were discussed. ?All questions were answered. ?Informed consent was obtained. ?The operative site on the right extremity was marked. ?The patient was taken to the operating room and transferred onto a Zenia table. ?All bony prominences were padded. ?A time-out procedure was performed verifying the correct patient identity, operative site, medical comorbidities, ASA score, and medication allergies. ?Injury radiographs displaying the injured hip were displayed in the room. ?Ancef and tranexamic acid were administered. I recommended fixation of this fracture based on the minimally displaced nature with valgus impaction and his male gender which I anticipated would result in good bone quality. I did discuss with him the option of replacement as opposed to fixation which in his case would have been a total hip arthroplasty. Based on the fracture morphology I anticipated that we would be able to achieve union with fixation. Traditionally this construct would involve 3 cannulated screws however biomechanical studies have shown superiority of this specific nail in that setting. Excerpts from the relevant biomechanical study are shown below. I did discuss in detail the possibility of nonunion or avascular necrosis leading to fixation failure and necessitating conversion to a total hip arthroplasty and the patient strongly preferred an attempt at fixation with preservation of his [place] hip. He reported that he does have a history of arthritis but that is it his back. Radiographically he had very mild joint space narrowing and no large subchondral cysts with an essentially identical appearance to his contralateral side. He reported no antecedent hip pain in either hip prior to this fall. On CT scan which is also included here I did note that there was good maintenance of cortical reduction anteriorly with some impaction posteriorly. There did appear to be some rotation through the fracture site on both the preoperative radiographs and CT scan to however he was holding his hip in a position of figure 4 when I evaluated him and I was able to improve this positioning through the fracture table prior to beginning the surgery. I did not place a significant amount of traction through the fracture site but I did slightly distracted and then allow it to interdigitate by releasing the traction. I did this in a position of about 20? of external rotation and then internally rotated to neutral with no significant traction applied and implanted the nail in that position. I did find that his bone quality was much higher than the typical patient with a fragility fracture, which I had anticipated based on his male sex and relatively good health. Prior to incision fluoroscopy was utilized to manipulate the fracture into an appropriate reduction. ?This involved traction and 0 degrees of internal rotation. ?Once satisfied with the radiographic appearance of the fracture on an AP hip radiograph as well as a lateral hip radiograph the patient was prepped and draped in the usual sterile fashion. ?I mapped out the start points fluoroscopically with the guidewire. ?I obtained a start point at the tip of the greater trochanter on the AP view aiming towards the lesser trochanter and centered in the greater trochanter aiming down the femoral shaft on the lateral view. ?The guidewire was inserted and an opening Reamer was utilized to gain access to the canal. ?The InterTAN nail was introduced and passed down to an appropriate depth where the interlocking screws would aim towards the center of the femur on an AP view. ?On a lateral fluoroscopic view the rotation of the C- arm was adjusted until the nail was centered in the femoral head. ?The jig was then rotated so that it would line with the nail and the femoral head in order to set the rotation of the nail. ?A guidewire was passed and evaluated to ensure appropriate center center position on both the AP and lateral fluoroscopic images to minimize tip apex distance. ?Once satisfied with the guidewire position I used the drills for the lag and compression screws for the InterTAN nail and measured the length of those. ?The compression screw utilized was 5 mm shorter than the lag screw. ?These were both inserted and correct positioning was verified fluoroscopically. ?The distal interlocking screw was inserted through the jig. ?The threaded capsular was removed proximally and final fluoroscopic images were obtained evaluating fracture reduction and implant positioning on AP and lateral views throughout the entire construct. ?I was satisfied with these radiographs. The wound was copiously irrigated. ?Local anesthesia was infiltrated throughout the wound. ?The wound was closed and a soft dressing was applied. ?The patient was transferred off of the Zenia table and brought to the PACU. Postoperative plan: * Weightbearing as tolerated * Recommend Aspirin 81 mg twice per day for DVT prophylaxis * Patient has been having episodes of delirium due to his COVID prior to his fall and we can anticipate this recurring during his hospital stay * Patient is a DNR/DNI and this will be reflected in his care moving forward from here during this hospital stay * Recommend multimodal pain regimen * Recommend DEXA scan from PCP given fragility fracture for consideration of potential osteoporosis treatment * Physical therapy to evaluate patient mobility, home set up, and availability of assistance at home to determine appropriateness for discharge home versus subacute rehab * Follow up in 2 weeks at [facility] Complications: none Post-operative Condition: stable Disposition: PACU
[2025-03-09] MEDS: ACETAMINOPHEN IV 1,000 MG/100 ML VIAL 400 MG IV (13:18)
--- NOTE | 2025-03-09 14:57 | CM.DANOTE ---
Patient is an 85 yo male who was admitted INPT Status on 03/09/25 for GLF/COVID. Pt has [employer] [facility] [employer] and his PCP is Dr. Jose A Almonte at [facility]. EMR was reviewed. Per MD, pt with hx of ulcerative colitis and had GLF and labs showed COVID+ and imaging showed femoral R neck fx. Per Ortho Consult, recommendation of surgical intervention and pt and spouse agreeable and taken to OR this morning Sun 03/09 and pt seemed to tolerate well and WBAT and PT/OT ordered. PT/OT pending for likely tomorrow Mon 03/10. SW met bedside with pt and explained role and pt confirms he lives at home with his /DPOA Lou and both are quite active and independent at baseline and do not use DME for ambulation typically. Pt still drives and they have one local son in [place] and one son in [place] and they can assist as needed. Pt denies any hx of HH or SNF and discussed that pt will work with PT/OT to determine discharge planning needs and pt acknowledges understanding. Plan: SW to follow closely for PT/OT eval to determine SNF vs HH pending progress. If SNF needed, [facility] auth will be needed. LUCY Cano Discharge Planning/Care Management CM Discharge Assessment Start: 03/09/25 03:51 Freq: Status: Active Protocol: Document 03/09/25 14:55 BF (Rec: 03/09/25 14:57 BF [id number]) Discharge Planning Assessment Assigned Discharge LUCY Garza Deployment Technician Provider Dr. Jose A Almonte Insurance [facility] DPOA/Assigned spouse Lou Designee Name Contact Information [phone] Advance Directives? Yes Advance Directives No on File History Provided By Patient,Significant Other,Medical Record Has Patient been No admitted in last 30 days? Prior Living House Arrangements Household Members spouse Type of Drives own vehicle transporation used prior to admit Independent with ADL Yes 's Is patient alert and Yes oriented? Caregiver for No Another Patient/Family Jail Facility,Home with Home Health Preference Comment SNF vs HH pending PT eval Barriers to No Discharge Discharge Plan Home with Home Health Transportation If safe for home likely spouse or son Arrangement Additional Comment Pending PT/OT eval Whiteboard Updated Yes in Patient Room with name and ext. # of Shirt Turner Review Status In Process Please Provide Date 03/09/25 Initial DC Assessment Was Performed Next Review Type Continued Stay Review
--- NOTE | 2025-03-09 15:48 | PT.IIE ---
Current Diagnoses Fracture of unspecified part of neck of right femur, initial encounter for closed fracture (03/09/25) Surgery Performed Operation Date: 03/09/25 11:00 Actual Procedures p Intramedullary Nailing Femur(Right) - Keith Daniel MD Medical History (Last Updated 02/10/25 @ 11:25 by Jose A Almonte DO) Depression, unspecified Frequent falls Ulcerative colitis Physical Therapy Inpatient Evaluation/Re-Eval M1 PT/OT-IP Prior Functional Status Start: 03/09/25 15:39 Freq: NEEDED Status: Active Protocol: Document 03/09/25 15:39 KJ (Rec: 03/09/25 15:48 KJ [id number]) Medical Review Prior Functional Status Medical History Yes Reviewed Mobility and Gait Ambulated with straight cane. Reports having frequent falls due to balance problems which he says are cortical and includes hitting his head many times. Also reports sciatica causing weakness in the RLE>LLE. States he has a sequence of exercises he does to keep his strength up and he enjoys martial arts. Activities of Daily Reports independence in all ADLs, yard work. Usually Living and IADL's takes baths sitting in the bottom of the tub. Social History Household Members spouse Living Arrangements House Number of Stairs To 3 Enter/Railing? Home Environment Standard Height Toilet,Tub/Shower Home Equipment Quad Cane M2 PT-IP Current Condition Start: 03/09/25 15:39 Freq: NEEDED Status: Active Protocol: Document 03/09/25 15:39 KJ (Rec: 03/09/25 15:48 KJ [id number]) Physical Therapy Current Condition Current Condition Evaluation Date 03/09/25 Treatment Diagnosis impaired mobility Onset Date 03/08/25 M3 PT-IP Subjective Start: 03/09/25 15:39 Freq: NEEDED Status: Active Protocol: Document 03/09/25 15:39 KJ (Rec: 03/09/25 15:48 KJ [id number]) Subjective Physical Therapy Visit Type Type Initial Evaluation Visit Start Time 13:03 Visit Stop Time 13:41 Physical Therapy Visit Comments Patient Comments Repeatedly talks about his ongoing balance problems. States he has not talked to a doctor about these, but continues to do exercise on his own. Patient Goals To go home Therapy Pain Assessment Pain When Pain Assessed At Rest Pain Present Pain Present Pain Reported Location Right Hip Description Aching Pain Behaviors Facial Grimacing Pain Management Modification of Treatment Techniques M4 PT-IP Mobility and Gait Start: 03/09/25 15:39 Freq: NEEDED Status: Active Protocol: Document 03/09/25 15:39 KJ (Rec: 03/09/25 15:48 KJ [id number]) PT-Bed Mobility Assessment Rolling Type of Rolling Log Rolling,Bilateral Level of Assist Minimal Assistance M5 PT-IP Objective Assessments Start: 03/09/25 15:39 Freq: NEEDED Status: Active Protocol: Document 03/09/25 15:39 KJ (Rec: 03/09/25 15:48 KJ [id number]) Orientation Orientation/Cognition Level of Alertness Alert Orientation Name,Age,Birthday Safety Awareness Decreased Safety Awareness Gross Range of Motion Upper Extremity ROM Assessment Within Functional Limits Lower Extremity ROM Assessment Right Impaired Impairments hip Strength Upper Extremity Strength Assessment Within Functional Limits Lower Extremity Strength Assessment Right Impaired Hip unable to fully assess due to pain Knee able to perform a quad set and SAQS bilat Ankle bilat ankle plantar/dorsiflex 5/5 M6 PT-IP Treatment Start: 03/09/25 15:39 Freq: NEEDED Status: Active Protocol: Document 03/09/25 15:39 KJ (Rec: 03/09/25 15:48 KJ [id number]) Physical Therapy Treatment Exercises Exercises Ankle Pumps,Quad Sets,Short Arc Quads Education Education Provided Safety Other Treatments Other Treatment Instructed in bed mobility Performed M7 PT-IP Assessment and Plan Start: 03/09/25 15:39 Freq: NEEDED Status: Active Protocol: Document 03/09/25 15:39 KJ (Rec: 03/09/25 15:48 KJ [id number]) PT Summary Assessment and Plan Potential Rehabilitation Good Potential Status of Condition Evolving at Evaluation Summary Impairments Pain,ROM,Strength,Bed Mobility,Transfers,Gait Assessment Summary Pt with limited movement due to R femoral fx, just had surgery this morning, but may be complicated by preexisting balance problems and sciatica Goals Bed Mobility Goal Standby Assistance Transfer Goal Standby Assistance Gait Goal Standby Assistance Gait Distance 50 Other Goals ascend/descend 3 steps Days to Meet Goals 5 Frequency of Treatment Frequency Of Twice a Day Treatment Treatment Plan Physical Therapy Bed Mobility Training,Transfer Training,Gait Training, Treatment Plan Therapeutic Exercise Other Progress to sit, stand, transfer. Recommendations and Next Treatment Focus Weight Bearing Status Weight Bearing Weight Bear as Tolerated Status Recommendations To Nursing Amount of Assist 2 Person Assist Needed Discharge Recommendations PT Discharge SNF Rehab Recommendations Equipment Needed for fww Home Before Discharge
[2025-03-09] MEDS: LACTATED RINGERS 1,000 ML 100 ML IV ×2 (15:49→23:33)
--- NOTE | 2025-03-09 18:22 | P.PN_ITS ---
Subjective Subjective Interval history: 85-year-old gentleman with history of depression and anxiety as well as ulcerative colitis and chronic low back pain who was admitted with a right femur fracture after a fall. He underwent operative repair with a closed reduction and intramedullary nailing earlier today. Patient reports his pain is improved since surgery. He does report feeling a bit sleepy overall but denies any new complaints. He is looking forward to being able to get up and move again. He denies any chest pain or shortness a breath. Exam Vital Signs (past 8 hours): - 03/09/25 10:41 03/09/25 12:47 03/09/25 12:50 Temperature 97.7 F 97.7 F Pulse Rate 93 H 73 91 H Respiratory Rate 16 16 16 Blood Pressure 144/67 H 131/63 133/62 Pulse Oximetry 84 L 93 90 L Oxygen Delivery Method Room Air Nasal Cannula Nasal Cannula Oxygen Flow Rate 4 4 03/09/25 12:55 03/09/25 13:00 03/09/25 13:10 Temperature Pulse Rate 78 78 80 Respiratory Rate 16 16 12 Blood Pressure 141/66 H 135/56 L 133/83 Pulse Oximetry 91 90 L 90 L Oxygen Delivery Method Nasal Cannula Nasal Cannula Nasal Cannula Oxygen Flow Rate 4 4 4 03/09/25 13:30 03/09/25 14:00 03/09/25 14:30 Temperature 97.7 F 96.4 F L 96.5 F L Pulse Rate 74 64 79 Respiratory Rate 20 20 20 Blood Pressure 115/65 112/63 105/61 Pulse Oximetry 93 91 91 Oxygen Delivery Method Oxygen Flow Rate 4 4 03/09/25 15:30 03/09/25 16:30 Temperature 96.4 F L 97 F L Pulse Rate 78 79 Respiratory Rate 20 18 Blood Pressure 125/58 L 132/55 L Pulse Oximetry 96 96 Oxygen Delivery Method Oxygen Flow Rate Oxygen Delivery Method Nasal Cannula Oxygen Flow Rate 4 Narrative Exam Narrative: GEN: Elderly male, Alert and oriented x 3, NAD HEENT:NC, Face symmetric CHEST: Respiratory excursions symmetric, CTAB CV: RRR, no M/R/G ABD: Soft, NT/ND, BT present in all 4 quadrants, no organomegaly or masses EXTR: warm, well perfused, no C/C/E, small dressing over his right lateral hip is clean/dry/intact, dressing over right lateral thigh is also clean/dry/intact SKIN: warm and dry, no rash NEURO: Alert and oriented x 3, nonfocal Objective Labs 03/09/25 02:04 03/09/25 02:04 Labs: Laboratory Results - last 24 hr 03/09/25 03/09/25 02:04 04:51 WBC 7.4 RBC 3.50 L Hgb 12.1 L Hct 34.9 L MCV 100.0 MCH 34.6 H MCHC 34.7 RDW 13.0 Plt Count 152 Neut % (Auto) 79.0 H Lymph % (Auto) 9.1 L [place] % (Auto) 10.0 Eos % (Auto) 0.2 L Baso % (Auto) 1.7 Neut # (Auto) 5800 Lymph # (Auto) 700 L [place] # (Auto) 700 Eos # (Auto) 0 Baso # (Auto) 100 PT 13.1 H INR 1.2 Sodium 137 Potassium 3.6 Chloride 107 Carbon Dioxide 21 L BUN 12 Creatinine 0.71 Estimated GFR > 60 BUN/Creatinine Ratio 16.9 Glucose 144 H Calcium 8.6 Total Bilirubin 1.0 AST 54 ALT 42 Alkaline Phosphatase 91 Total Protein 7.3 Albumin 4.2 Globulin 3.1 Albumin/Globulin Ratio 1.4 Urine Color Yellow Urine Appearance Clear Urine pH 5.5 Ur Specific [place] 1.025 Urine Protein Trace H Urine Glucose (UA) Negative Urine Ketones Trace H Urine Occult Blood Negative Urine Nitrate Negative Urine Bilirubin Negative Urine Urobilinogen 0.2 Ur Leukocyte Esterase Negative Urine RBC None seen Urine WBC None seen Ur Squamous Epith Cells None seen Urine Bacteria None seen Ur Culture Indicated? Cult not indicated Vol Urine Centrifuged 10ml (spun) [facility] Medical History (Updated 03/09/25 @ 03:36 by Perry Epperson MD) Depression, unspecified Ulcerative colitis Frequent falls Social History household members: spouse Smoking Status: Never smoker Assessment & Plan Assessment & Plan narrative: 1. Postoperative day 0 from intramedullary nailing of impacted right femoral neck fracture Patient is doing well thus far. Will continue pain management and mobilization. 2. Ulcerative colitis Await medication reconciliation. Plan to resume sulfasalazine once meds have been reconciled 3. Depression Continue citalopram 4. Normocytic anemia Mild with hemoglobin at 12.1 today 5. Hyperglycemia He has no history of diabetes. Likely a stress-induced elevation. Code status DNR Prophylaxis Orthopedic surgery has ordered aspirin b.i.d. Disposition Await physical therapy assessment for recommendations Time-Based Coding :: [TOTAL MINUTES] spent with patient and on the chart (including review of chart, obtaining history, exam, reviewing outside data, placing orders, documenting exam and treatment plan, and counseling patient) on [DATE]. Quality VTE Deep Vein Thrombosis/Pulmonary Embolism Present on Admission: No
--- NOTE | 2025-03-09 19:35 | PC.NURSE ---
Patient back to Room 223 at 1330 this afternoon. VSS, afebrile on 2 LNC. Encouraged IS. Patient is able to void moderate amount Urine (dark yellow) IVF LR at 100 ml/hr. Pt initially oriented x3, slightly forgetful. This evening at shift change patient becomes confused Per INVENTORY COORDINATOR.
[2025-03-09] MEDS: diphenhydrAMINE 50 MG/ML VIAL IV (20:19)
[2025-03-09] MEDS: ASPIRIN EC 81 MG TABLET PO (20:21)
[2025-03-10 00:15] VITALS: BP 147/72; PULSE 91; RESP 19; TEMP 36.5; O2SAT 93
[2025-03-10] MEDS: HALOPERIDOL 5 MG/ML VIAL IV (02:29)
[2025-03-10] MEDS: MORPHINE 4 MG/ML INJ 3 MG IV (02:29)
[2025-03-10] MEDS: diphenhydrAMINE 50 MG/ML VIAL IV (02:30)
[2025-03-10 04:00] VITALS: BP 151/67; PULSE 105; RESP 39; TEMP 36.6; O2SAT 92; O2SAT 95
--- NOTE | 2025-03-10 05:00 | DI.RAD.S_ITS ---
PROCEDURE: XR CHEST 1V INDICATIONS: SOB TECHNIQUE: One view of the chest was acquired. COMPARISON: [facility], CT, CT ABDOMEN PELVIS WO CON, 03/09/2025, 1:00. [facility], CR, XR CHEST 1V, 03/09/2025, 0:20. FINDINGS: Surgical changes and devices: None. Lungs and pleura: Lower lung volumes. No consolidation identified. No pleural effusions or pneumothorax. Mediastinum: Mediastinal contours appear normal. Heart size is normal. Bones and chest wall: No suspicious bony lesions. Overlying soft tissues appear unremarkable. IMPRESSION: No acute cardiopulmonary abnormality is seen. This report is concordant with the overnight preliminary interpretation. Dictated by: Kishan Golden M.D. on 03/10/2025 at 7:53 Approved by: Kishan Golden M.D. on 03/10/2025 at 7:54
[2025-03-10 06:24] LABS: Add Manual Diff / Slide Review NO; Hematocrit 33.5 % (41-53); Hemoglobin 11.7 g/dL (13.5-17.5); Lymphocytes Absolute Auto 1000 /uL (1100-4500); Mean Corpuscular HGB Conc 35.0 % (30-36); Mean Corpuscular Hemoglobin 35.1 PG (26-34); Mean Corpuscular Volume 100.3 fL (80-100); Platelet Count 188 X10^3/uL (150-400)
[2025-03-10 06:37] LABS: Blood Urea Nitrogen 8 mg/dL (9-20); Calcium 8.7 mg/dL (8.4-10.2); Carbon Dioxide 26 mmol/L (22-32); Chloride 99 mmol/L (98-107); Estimated Glomerular Filt Rate > 60 mL/min (>60); Glucose 121 mg/dL (70-99); HEMOLYSIS < 15 (0-50); Potassium 3.5 mmol/L (3.4-5.1); Sodium 135 mmol/L (137-145)
[2025-03-10 07:02] LABS: NT-proBNP (BNP-Adult 18+) 784 pg/mL (<450)
--- NOTE | 2025-03-10 07:38 | P.PN_ITS ---
Subjective Subjective Interval history: Summary: 85-year-old gentleman with history of depression and anxiety as well as ulcerative colitis and chronic low back pain who was admitted with a right femur fracture after a fall. He underwent operative repair with a closed reduction and intramedullary nailing earlier today. Patient reports his pain is improved since surgery. He does report feeling a bit sleepy overall but denies any new complaints. He is looking forward to being able to get up and move again. He denies any chest pain or shortness a breath. 03/09: ORIF. S: He was had some confusion overnight. Today he was able to state he was in the hospital. His is at the bedside. He was having some hip pain. He denies hallucinations. O: NAD, alert and oriented. Fluent speech. Lungs are clear, normal rate and effort. Heart is regular, no murmur gallop or rub. Abdomen is soft, non distended. Extremities are free of edema. A/P: 1. Postoperative day 1 from intramedullary nailing of impacted right femoral neck fracture Patient is doing well thus far. Will continue pain management and mobilization. 2. Ulcerative colitis, stable. Await medication reconciliation. Plan to resume sulfasalazine once meds have been reconciled 3. Depression, stable. Continue citalopram 4. Normocytic anemia, stable. Mild with hemoglobin at 12.1 today 5. Hyperglycemia, stable. He has no history of diabetes. Likely a stress-induced elevation. 6. Acute encephalopathy. Related to pain medications and hospitalization as well as acute illness. PLAN: -minimize pain medications -physical therapy and increase activity. -discharge planning, we will need snf facility. -monitor delirium. Code status DNR Prophylaxis Orthopedic surgery has ordered aspirin b.i.d. Exam Vital Signs (past 8 hours): - 03/10/25 00:15 03/10/25 04:00 03/10/25 04:00 Temperature 97.7 F 97.9 F Pulse Rate 91 H 105 H Respiratory Rate 19 39 H Blood Pressure 147/72 H 151/67 H Pulse Oximetry 93 92 95 Oxygen Delivery Method Oximask Oxygen Flow Rate 5 5 7 Fraction of Inspired Oxygen 32 SaO2/FiO2 Ratio 287 Oxygen Delivery Method Oximask Oxygen Flow Rate 7 Objective Labs 03/10/25 06:12 03/10/25 06:12 Labs: Laboratory Results - last 24 hr 03/10/25 06:12 WBC 9.2 RBC 3.34 L Hgb 11.7 L Hct 33.5 L MCV 100.3 H MCH 35.1 H MCHC 35.0 RDW 13.0 Plt Count 188 Neut % (Auto) 76.8 H Lymph % (Auto) 10.6 L [place] % (Auto) 12.2 Eos % (Auto) 0.1 L Baso % (Auto) 0.3 Neut # (Auto) 7100 H Lymph # (Auto) 1000 L [place] # (Auto) 1100 H Eos # (Auto) 0 Baso # (Auto) 0 Sodium 135 L Potassium 3.5 Chloride 99 Carbon Dioxide 26 BUN 8 L Creatinine 0.73 Estimated GFR > 60 BUN/Creatinine Ratio 11.0 Glucose 121 H Calcium 8.7 NT-Pro-B Natriuret Pep 784 H [facility] Medical History (Updated 03/09/25 @ 03:36 by Perry Epperson MD) Depression, unspecified Ulcerative colitis Frequent falls Social History household members: spouse Smoking Status: Never smoker Assessment & Plan Time-Based Coding :: [TOTAL MINUTES] spent with patient and on the chart (including review of chart, obtaining history, exam, reviewing outside data, placing orders, documenting exam and treatment plan, and counseling patient) on [DATE]. Quality VTE Deep Vein Thrombosis/Pulmonary Embolism Present on Admission: No
--- NOTE | 2025-03-10 07:48 | PM.PN.IH.1 ---
Subjective Subjective Interval history: Hemoglobin this morning for Maxx was 11.7. His case yesterday went routinely. He has active COVID with fevers, myalgias, and encephalopathy was his reporting that he had had hallucinations before his fall. From an orthopedic perspective he is weight-bearing as tolerated in his dressing can be changed as needed should it become saturated. He will need a 2 week follow up visit in our clinic for a wound check and x-rays. We will not plan to see him routinely during this admission because of his COVID diagnosis unless there are further orthopedic issues in order to limit exposure of our clinical team to COVID and prevent spread as best we are able. If there are any concerns with the reamings from an orthopedic perspective please reach out to me personally. Exam Vital Signs (past 8 hours): - 03/10/25 00:15 03/10/25 04:00 03/10/25 04:00 Temperature 97.7 F 97.9 F Pulse Rate 91 H 105 H Respiratory Rate 19 39 H Blood Pressure 147/72 H 151/67 H Pulse Oximetry 93 92 95 Oxygen Delivery Method Oximask Oxygen Flow Rate 5 5 7 Fraction of Inspired Oxygen 32 SaO2/FiO2 Ratio 287 Oxygen Delivery Method Oximask Oxygen Flow Rate 7 Objective Labs 03/10/25 06:12 03/10/25 06:12 Labs: Laboratory Results - last 24 hr 03/10/25 06:12 WBC 9.2 RBC 3.34 L Hgb 11.7 L Hct 33.5 L MCV 100.3 H MCH 35.1 H MCHC 35.0 RDW 13.0 Plt Count 188 Neut % (Auto) 76.8 H Lymph % (Auto) 10.6 L [place] % (Auto) 12.2 Eos % (Auto) 0.1 L Baso % (Auto) 0.3 Neut # (Auto) 7100 H Lymph # (Auto) 1000 L [place] # (Auto) 1100 H Eos # (Auto) 0 Baso # (Auto) 0 Sodium 135 L Potassium 3.5 Chloride 99 Carbon Dioxide 26 BUN 8 L Creatinine 0.73 Estimated GFR > 60 BUN/Creatinine Ratio 11.0 Glucose 121 H Calcium 8.7 NT-Pro-B Natriuret Pep 784 H [facility] Medical History (Updated 03/09/25 @ 03:36 by Perry Epperson MD) Depression, unspecified Ulcerative colitis Frequent falls Social History household members: spouse Smoking Status: Never smoker Assessment & Plan Time-Based Coding :: [TOTAL MINUTES] spent with patient and on the chart (including review of chart, obtaining history, exam, reviewing outside data, placing orders, documenting exam and treatment plan, and counseling patient) on [DATE]. Quality VTE Deep Vein Thrombosis/Pulmonary Embolism Present on Admission: No IH PROFEE Compliance Consultant Document charge(s): No
[2025-03-10 07:54] VITALS: BP 156/84; PULSE 107; RESP 21; TEMP 36.4; O2SAT 97
[2025-03-10] MEDS: SULFASALAZINE 500 MG 500 EACH PO ×2 (10:00→21:06)
[2025-03-10] MEDS: POTASSIUM CHLORIDE 20 MEQ TAB 40 MEQ PO (10:15)
[2025-03-10] MEDS: ASPIRIN EC 81 MG TABLET PO ×2 (10:50→21:06)
[2025-03-10] MEDS: CITALOPRAM 10 MG TABLET 20 MG PO (10:50)
--- NOTE | 2025-03-10 10:54 | CM.DPC ---
ALEXA spoke with patient , Lou, at bedside and discussed SNF placement. Lou requested the [place] area. Lou informed that [facility] does not currently accept [employer]. Lou is agreeable to [facility]. Patient profile was emailed to Coby at [facility]. PASSR completed and signed by Dr. Guzman.
--- NOTE | 2025-03-10 11:27 | OT.IPNOTE ---
OT consult received and chart review performed. OT attempted to initiate eval. Pt was able to open his eyes but unable to keep them open. OT will re-attempt as schedule permits and when pt is able to participate meaningfully.
--- NOTE | 2025-03-10 14:02 | CM.DPC ---
ALEXA spoke with Gabe, PT's son and Tiesha, PT's drt-in-law. [facility] is the 1st choice and is closest to Gabe's home. CM left VM with Ness at [facility] to verify if they accept [employer]. Gabe and Tiesha said they would stop by [facility] themselves and look into the insurance concern. CM also informed Gabe the cost of transportation involved to the [facility], $300.00+/-. SNF referrals also sent to [facility] and [facility] in the [facility] area.
--- NOTE | 2025-03-10 14:11 | CM.DPC ---
PT's son, Gabe ph# [phone]
--- NOTE | 2025-03-10 14:17 | CM.DPC ---
Ness from [facility] returned phone call. [facility] does NOT accept [employer]. PT's son, Gabe informed. Gabe requested [facility] in [place]. Profile sent.
--- NOTE | 2025-03-10 16:43 | PT.IPTN ---
Current Diagnoses Fracture of unspecified part of neck of right femur, initial encounter for closed fracture (03/09/25) Surgery Performed Operation Date: 03/09/25 11:00 Actual Procedures p Intramedullary Nailing Femur(Right) - Keith Daniel MD Physical Therapy Treatment Note M2 PT-IP Current Condition Start: 03/09/25 15:39 Freq: NEEDED Status: Active Protocol: Document 03/09/25 15:39 KJ (Rec: 03/09/25 15:48 KJ [id number]) Physical Therapy Current Condition Current Condition Evaluation Date 03/09/25 Treatment Diagnosis impaired mobility Onset Date 03/08/25 M3 PT-IP Subjective Start: 03/09/25 15:39 Freq: NEEDED Status: Active Protocol: Document 03/10/25 16:35 KJ (Rec: 03/10/25 16:43 KJ Desktop) Subjective Physical Therapy Visit Type Type Treatment Note Visit Start Time 15:56 Visit Stop Time 16:35 Physical Therapy Visit Comments Patient Comments pain in R hip. Therapy Pain Assessment Pain When Pain Assessed During Mobility Pain Present Pain Present Pain Reported Location Right Hip Pain Behaviors Calling Out,Facial Grimacing,Holding Area Pain Management Re-positioning Techniques M4 PT-IP Mobility and Gait Start: 03/09/25 15:39 Freq: NEEDED Status: Active Protocol: Document 03/10/25 16:35 KJ (Rec: 03/10/25 16:43 KJ Desktop) PT-Bed Mobility Assessment Rolling Type of Rolling Log Rolling,Bilateral Level of Assist Moderate Assistance PT-Transfer Assessment Transfers Transfer Destination Chair Transfer Technique Mechanical Lift Transfer Ability Level of Assist Total Assistance Comments Mobility Comments RN reports patient sat at eob w/2 assists earlier this afternoon, stood and took 2 steps to side then wanted to lie down. M5 PT-IP Objective Assessments Start: 03/09/25 15:39 Freq: NEEDED Status: Active Protocol: Document 03/10/25 16:35 KJ (Rec: 03/10/25 16:43 KJ Desktop) Orientation Orientation/Cognition Level of Alertness Lethargic Orientation Name Safety Awareness Decreased Safety Awareness Memory Description Short Term Impaired Comments intermittantly remembers reason for hospitalization, this is worse than yesterday. Gross Range of Motion Upper Extremity ROM Assessment Within Functional Limits Lower Extremity ROM Assessment Right Impaired Impairments hip and knee impaired Other Assessments Other Other Assessments Pt keeps eyes closed most of the time but opens them upon request. Initially, O2 sats at 79% on 1 l w/nasal cannula. RN changes to face mask and O2 improves to 92% . Pt minimally participating in mobility; used total lift to get pt up to chair. Pt again needs frequent reminders to keep eyes open and stay awake. RN noted pt seemed to aspirate on toothpaste earlier - will be preferable for pt to sit up in chair for dinner. M6 PT-IP Treatment Start: 03/09/25 15:39 Freq: NEEDED Status: Active Protocol: Document 03/10/25 16:35 KJ (Rec: 03/10/25 16:43 KJ Desktop) Physical Therapy Treatment Exercises Exercises Ankle Pumps,Quad Sets,Heel Slides,Short Arc Quads, Seated Knee Flexion/Extension,Shoulder Flexion,Elbow Flexion/Extension Education Education Provided Safety Other Treatments Other Treatment Worked on reorienting pt. Performed M7 PT-IP Assessment and Plan Start: 03/09/25 15:39 Freq: NEEDED Status: Active Protocol: Document 03/10/25 16:35 KJ (Rec: 03/10/25 16:43 KJ Desktop) PT Summary Assessment and Plan Potential Rehabilitation Fair Potential Status of Condition Evolving at Evaluation Summary Impairments Pain,ROM,Strength,Bed Mobility,Transfers,Gait Progress Towards Slow Progress due to Pain Goals Assessment Summary pt appears to have cognitive issues which may have been present prior to injury. Frequency of Treatment Frequency Of Once a Day Treatment Treatment Plan Other Sit on eob, stand and ambulate Recommendations and Next Treatment Focus Weight Bearing Status Weight Bearing Weight Bear as Tolerated Status Recommendations To Nursing Amount of Assist Mechanical Lift Needed Discharge Recommendations PT Discharge SNF Rehab Recommendations
[2025-03-10] MEDS: ACETAMINOPHEN 325 MG TABLET 650 MG PO (21:06)
[2025-03-10 23:11] VITALS: PULSE 98; O2SAT 97
[2025-03-11 05:18] LABS: Add Manual Diff / Slide Review NO; Hematocrit 29.4 % (41-53); Hemoglobin 10.2 g/dL (13.5-17.5); Lymphocytes Absolute Auto 1100 /uL (1100-4500); Mean Corpuscular HGB Conc 34.8 % (30-36); Mean Corpuscular Hemoglobin 34.8 PG (26-34); Mean Corpuscular Volume 100.0 fL (80-100); Platelet Count 161 X10^3/uL (150-400)
[2025-03-11 05:27] LABS: Blood Urea Nitrogen 12 mg/dL (9-20); Calcium 8.3 mg/dL (8.4-10.2); Carbon Dioxide 26 mmol/L (22-32); Chloride 101 mmol/L (98-107); Estimated Glomerular Filt Rate > 60 mL/min (>60); Glucose 116 mg/dL (70-99); HEMOLYSIS < 15 (0-50); Potassium 3.8 mmol/L (3.4-5.1); Sodium 134 mmol/L (137-145)
[2025-03-11 08:00] VITALS: BP 131/66; PULSE 97; RESP 16; TEMP 36.2; O2SAT 100
[2025-03-11] MEDS: SULFASALAZINE 500 MG 500 EACH PO (08:50)
[2025-03-11] MEDS: CITALOPRAM 10 MG TABLET 20 MG PO (08:51)
[2025-03-11] MEDS: ASPIRIN EC 81 MG TABLET PO ×2 (08:51→20:00)
[2025-03-11 09:00] VITALS: O2SAT 97
[2025-03-11] MEDS: SODIUM CHLORIDE 0.9% FLUSH 10 ML IV (10:31)
[2025-03-11] MEDS: SULFASALAZINE 500 MG 1500 EACH PO (10:31)
--- NOTE | 2025-03-11 10:47 | PM.PN.1 ---
Subjective Subjective Interval history: Summary: Summary: 85-year-old gentleman with history of depression and anxiety as well as ulcerative colitis and chronic low back pain who was admitted with a right femur fracture after a fall. He underwent operative repair with a closed reduction and intramedullary nailing earlier today. Patient reports his pain is improved since surgery. He does report feeling a bit sleepy overall but denies any new complaints. He is looking forward to being able to get up and move again. He denies any chest pain or shortness a breath. 03/09: ORIF. 03/10: Some confusion. S: Feeling much better today, no confusion. Still has an intermittent cough, but no dyspnea. Hip pain is improving. O: NAD, alert and oriented. Fluent speech. Lungs are clear, normal rate and effort. Heart is regular, no murmur gallop or rub. Abdomen is soft, non distended. Extremities are free of edema. Alert and oriented to person, place, and year. Right hip wound dressing is unremarkable and there is no swelling at the surgical site. A/P: 1. Postoperative from intramedullary nailing of impacted right femoral neck fracture Patient is doing well thus far. Will continue pain management and mobilization. 2. Ulcerative colitis, stable. Await medication reconciliation. Plan to resume sulfasalazine once meds have been reconciled 3. Depression, stable. Continue citalopram 4. Normocytic anemia, stable. Mild with hemoglobin at 12.1 today 5. Hyperglycemia, stable. He has no history of diabetes. Likely a stress-induced elevation. 6. Acute encephalopathy. Improved. 7. Covid, Sx for the last week. PLAN: -minimize pain medications -physical therapy and increase activity. -[facility] possible today. -Covid isolation. Code status DNR Prophylaxis Orthopedic surgery has ordered aspirin b.i.d. Exam Vital Signs (past 8 hours): - 03/11/25 08:00 Temperature 97.1 F L Pulse Rate 97 H Respiratory Rate 16 Blood Pressure 131/66 Pulse Oximetry 100 Fraction of Inspired Oxygen 32 SaO2/FiO2 Ratio 287 Oxygen Delivery Method Oximask Oxygen Flow Rate 4 Objective Labs 03/11/25 04:56 03/11/25 04:56 Labs: Laboratory Results - last 24 hr 03/11/25 04:56 WBC 8.2 RBC 2.94 L Hgb 10.2 L Hct 29.4 L MCV 100.0 MCH 34.8 H MCHC 34.8 RDW 13.0 Plt Count 161 Neut % (Auto) 75.2 H Lymph % (Auto) 13.0 L [place] % (Auto) 10.9 Eos % (Auto) 0.6 L Baso % (Auto) 0.3 Neut # (Auto) 6200 Lymph # (Auto) 1100 [place] # (Auto) 900 Eos # (Auto) 100 Baso # (Auto) 0 Sodium 134 L Potassium 3.8 Chloride 101 Carbon Dioxide 26 BUN 12 Creatinine 0.73 Estimated GFR > 60 BUN/Creatinine Ratio 16.4 Glucose 116 H Calcium 8.3 L PFSH Medical History (Updated 03/09/25 @ 03:36 by Perry Epperson MD) Depression, unspecified Ulcerative colitis Frequent falls Social History household members: spouse Smoking Status: Never smoker Assessment & Plan Time-Based Coding :: [TOTAL MINUTES] spent with patient and on the chart (including review of chart, obtaining history, exam, reviewing outside data, placing orders, documenting exam and treatment plan, and counseling patient) on [DATE]. Quality VTE Deep Vein Thrombosis/Pulmonary Embolism Present on Admission: No
--- NOTE | 2025-03-11 11:25 | OT.IP.EVAL ---
Current Diagnoses Fracture of unspecified part of neck of right femur, initial encounter for closed fracture (03/09/25) Surgery Performed Operation Date: 03/09/25 11:00 Actual Procedures p Intramedullary Nailing Femur(Right) - Keith Daniel MD Past Medical History (Last Updated 02/10/25 @ 11:25 by Jose A Almonte DO) Depression, unspecified Frequent falls Ulcerative colitis Occupational Therapy Inpatient Evaluation/Re-Eval M1 PT/OT-IP Prior Functional Status Start: 03/09/25 15:39 Freq: NEEDED Status: Active Protocol: Document 03/11/25 12:08 [facility] (Rec: 03/11/25 12:18 [facility] Desktop) Medical Review Prior Functional Status Medical History Yes Reviewed Mobility and Gait Ambulated with straight cane. Reports having frequent falls due to balance problems which he says are cortical and includes hitting his head many times. Also reports sciatica causing weakness in the RLE>LLE. States he has a sequence of exercises he does to keep his strength up and he enjoys martial arts. Activities of Daily Reports independence in all ADLs, yard work. Usually Living and IADL's takes baths sitting in the bottom of the tub. Social History Household Members spouse Living Arrangements House Number of Stairs To 3 Enter/Railing? Home Environment Standard Height Toilet,Walk in Shower,Tub/Shower,Built- In Shower Seat Home Equipment Straight Cane,Riveter Hand,Grab Bars In Shower M2 OT-IP Current Condition Start: 03/11/25 12:07 Freq: Status: Active Protocol: Document 03/11/25 12:08 [facility] (Rec: 03/11/25 12:18 [facility] Desktop) Occupational Therapy Current Condition Current Condition Evaluation Date 03/11/25 Treatment Diagnosis Fall, R femur fx, S/P R ORIF Weight Bearing Status Weight Bearing Weight Bear as Tolerated Status M3 OT- IP Subjective and Pain Start: 03/11/25 12:07 Freq: Status: Active Protocol: Document 03/11/25 12:08 [facility] (Rec: 03/11/25 12:18 [facility] Desktop) OT- Subjective Occupational Therapy Visit Type Type Initial Evaluation Visit Start Time 10:45 Visit Stop Time 11:25 Occupational Therapy Visit Comments Patient Comments Pt needing lots of encouragement to try to get up. Pt's in the room. Patient/Caregiver TO get better. Goals OT Pain Assessment Pain When Pain Assessed At Rest Pain Present Pain Present Pain Reported Location Right Hip Intensity 6 Scale Used Numeric (0 - 10) M4 OT- IP ADL's Start: 03/11/25 12:07 Freq: Status: Active Protocol: Document 03/11/25 12:08 [facility] (Rec: 03/11/25 12:18 [facility] Desktop) OT LHA-Agia-Pvqbkbu Comments OT Self-Feeding NOt at meal time. Comments OT ADL-Grooming Comments OT Grooming Comments Not performed. OT ADL-Oral Care Comments Oral Care Comments Not performed. OT ADL-Dressing General Eval Lower Body Dressing Maximum Assistance Ability Areas Needing Socks Assistance OT ADL-Toileting General Evaluation Toileting Ability Total Assistance Areas Needing Empty Catheter or Colostomy Assistance Comments OT Toileting Ray Comments OT ADL-Bathing Comments OT Bathing Comments Sponge bath more appropriate at this time. M5 OT- IP IADL's Start: 03/11/25 12:07 Freq: Status: Active Protocol: Document 03/11/25 12:08 [facility] (Rec: 03/11/25 12:18 [facility] Desktop) OT-Instrumental Activities of Daily Living Home Safety Awareness Home Safety Comments Pt is a bit groggy still. Medication Management Medication Pt will benefit from assist. Management Comments Money Management Money Management Caregiver Provides Assistance Meal Preparation Meal Preparation Caregiver Provides Assist Pipeline Inspector Pipeline Inspector Caregiver Provides Assist M6 OT- IP Functional Cognition Start: 03/11/25 12:07 Freq: Status: Active Protocol: Document 03/11/25 12:08 [facility] (Rec: 03/11/25 12:18 [facility] Desktop) Cognitive Factors Limiting Selfcare Function Cognitive Ability Level of Alertness Alert,Confusional State Patient Orientation Name,Month,Year,Place,Situation Attention Span Capable of Focused Attention,Unable to Sustain Ability Attention Ability to Follow Able to Follow One Step Commands with Increased Time, Commands Able to Follow One Step Commands with Repetition Cognitive Comments Cognitive Assessment Pt groggy and very fearful of falling. Pt guarding his Comments RLE movements. Pt needing step by step vc for mobility needs. OT- Vision and Hearing OT- Hearing Assessment OT- Hearing Hearing Impaired Assessment OT- Vision Assessment Visual Acuity Glasses All The Time Vision Assessment Pt does not have his glasses present as they broke Comments during his fall. Pt's states to bring his back up pair in. M7 OT- IP Mobility and Balance Start: 03/11/25 12:07 Freq: Status: Active Protocol: Document 03/11/25 12:08 [facility] (Rec: 03/11/25 12:18 [facility] Desktop) OT- Bed Mobility Assessment Supine to Sit Supine to Sit Assist Maximum Assistance,Head of Bed Elevated,Bedrails Sit to Supine Sit to Supine Assist Maximum Assistance OT-Transfer Assessment Sit to and From Stand Sit to and from Maximum Assistance,2 Person Assistance Stand Comments Mobility Comments MAX AX 1 to assist to help move his RLE and get his trunk upright in addition to HOB up. MAX AX 2 to stand and able to shuffle his feet side to side to get a little higher up in the bed. At the end able to lift up his RLE for small step. MAX AX 2 form sit to supine. BP 122/58 supine, sitting 132/59. Pt having trouble follow directions for RLE exercises in bed to help strength and keep his RLE moving in preps for ADL mobility needs. OT- Balance Assessment Sitting Balance and Reactions Static Sitting Good Balance Ability Dynamic Sitting Fair Balance Ability Standing Balance and Reactions Static Standing Poor Balance Ability Dynamic Standing Poor Balance Ability M8 OT- IP Objective Assessments Start: 03/11/25 12:07 Freq: Status: Active Protocol: Document 03/11/25 12:08 [facility] (Rec: 03/11/25 12:18 [facility] Desktop) OT Gross Range of Motion Upper Extremity Range of Motion Assessment Within Functional Limits OT Strength Upper Extremity Strength Assessment Within Functional Limits OT- Coordination Assessment Upper Extremity Finger to Nose Test Within Functional Limits M9 OT- IP Assessment and Plan Start: 03/11/25 12:07 Freq: Status: Active Protocol: Document 03/11/25 12:08 [facility] (Rec: 03/11/25 12:18 [facility] Desktop) OT Summary Assessment and Plan Potential Rehabilitation Good Potential Analytic Complexity Moderate at Evaluation Summary OT Impairments Pain,Balance,Functional Cognition,Functional Mobility, Grooming,Dressing,Toileting,Bathing,Toilet Transfers, Shower Transfers,Activity Tolerance Progress Towards Slow Progress due to Pain,Slow Progress due to Medical Goals Issues,Slow Progress due to Activity Tolerance,Slow Progress due to Cognition Assessment Summary Pt MOD complexity and main barriers are pain, steps, still groggy from sx, fearful of falling and guarding his movements, and at this time needing MAX AX 2 to stand and take a few side steps via shuffling his feet to the head of the bed wit FWW. Pt will benefit from skilled rehab when medically stable. Goals Self-Feeding Goal Independent Grooming Goal Independent Dressing Goal Minimal Assistance Toileting Goal Minimal Assistance Bathing Goal Minimal Assistance Toilet Transfer Goal Standby Assistance Shower Transfer Goal Contact Guard Assistance Days to Meet Goals 20 Frequency of Treatment Other frequency 5x/week Treatment Plan OT Treatment Plan ADL Training,Functional Cognition Training,Functional Mobility,Patient/Family Education,Discharge Planning Other Treatment Transfer to the [facility] with MODA X 2 with FWW. Recommendations and Next Treatment Focus Discharge Recommendations OT Discharge SNF Rehab Recommendations Transportation Needs Wheelchair/Cabulance at Discharge
--- NOTE | 2025-03-11 13:14 | PT-IP ANOTE ---
checked on pt this morning and pt refused PT. Spouse in room and encouraged pt but pt continues to refuse. educated pt on importance of mobility and pt understood but continues to refuse. Informed pt that PT will check back this afternoon but pt also refusing that. Spouse again encouraged pt. pt then agreed for PT to check back later this afternoon.
--- NOTE | 2025-03-11 15:10 | PT.IPTN ---
Current Diagnoses Fracture of unspecified part of neck of right femur, initial encounter for closed fracture (03/09/25) Surgery Performed Operation Date: 03/09/25 11:00 Actual Procedures p Intramedullary Nailing Femur(Right) - Keith Daniel MD Physical Therapy Treatment Note M2 PT-IP Current Condition Start: 03/09/25 15:39 Freq: NEEDED Status: Active Protocol: Document 03/09/25 15:39 KJ (Rec: 03/09/25 15:48 KJ [id number]) Physical Therapy Current Condition Current Condition Evaluation Date 03/09/25 Treatment Diagnosis impaired mobility Onset Date 03/08/25 M3 PT-IP Subjective Start: 03/09/25 15:39 Freq: NEEDED Status: Active Protocol: Document 03/11/25 15:10 AB (Rec: 03/11/25 16:38 AB [id number]) Subjective Physical Therapy Visit Type Type Treatment Note Visit Start Time 15:10 Visit Stop Time 15:45 Number of PATHOLOGIST ASSISTANT Visits 0 Physical Therapy Visit Comments Patient Comments agreeable to do PT M4 PT-IP Mobility and Gait Start: 03/09/25 15:39 Freq: NEEDED Status: Active Protocol: Document 03/11/25 15:10 AB (Rec: 03/11/25 16:38 AB [id number]) PT-Bed Mobility Assessment Supine to Sit Supine to Sit Maximum Assistance,1 Person Assistance,2 Person Assistance Scooting Scooting to Edge of Maximum Assistance Bed PT-Transfer Assessment Sit to and From Stand Sit to and from Maximum Assistance,2 Person Assistance,Use of Upper Stand Extremities Equipment Transfer Assistive Gait Belt,Front Wheeled Walker Device Orthotic/Prosthetic No Devices or Brace: Transfers Transfer Destination Chair Transfer Technique Stand Step Pivot Transfer Ability Level of Assist Maximum Assistance,2 Person Assistance,Use of Upper Extremities Comments Mobility Comments pt in bed and agreeable to do PT. BP: 138/78 O2 sat with 2L/min O2 supplement: 97% TN: 89. completed supine to sit max A x 1-2 and max cues. HOB elevated. max A for scooting to EOB with (+) LOB posteriorly in bed needing max A for sitting balance and repositioning . sit to stand from EOB max A x 2 and max cues and step transfer to chair using FWW max A x 2 and max cues . positioned pt on the chair. pt agreed to do LE exercises: completed seated marching, LAQs and ankle pumps. call light and table placed next to pt. chair alarm on . M5 PT-IP Objective Assessments Start: 03/09/25 15:39 Freq: NEEDED Status: Active Protocol: Document 03/10/25 16:35 KJ (Rec: 03/10/25 16:43 KJ Desktop) Orientation Orientation/Cognition Level of Alertness Lethargic Orientation Name Safety Awareness Decreased Safety Awareness Memory Description Short Term Impaired Comments intermittantly remembers reason for hospitalization, this is worse than yesterday. Gross Range of Motion Upper Extremity ROM Assessment Within Functional Limits Lower Extremity ROM Assessment Right Impaired Impairments hip and knee impaired Other Assessments Other Other Assessments Pt keeps eyes closed most of the time but opens them upon request. Initially, O2 sats at 79% on 1 l w/nasal cannula. RN changes to face mask and O2 improves to 92% . Pt minimally participating in mobility; used total lift to get pt up to chair. Pt again needs frequent reminders to keep eyes open and stay awake. RN noted pt seemed to aspirate on toothpaste earlier - will be preferable for pt to sit up in chair for dinner. M6 PT-IP Treatment Start: 03/09/25 15:39 Freq: NEEDED Status: Active Protocol: Document 03/11/25 15:10 AB (Rec: 03/11/25 16:38 AB [id number]) Physical Therapy Treatment Exercises Exercises Ankle Pumps Equipment Issued Equipment Type and seated marching, LAQs with 5 sec hold, ankle pumps 5 Company reps x 2 sets M7 PT-IP Assessment and Plan Start: 03/09/25 15:39 Freq: NEEDED Status: Active Protocol: Document 03/11/25 15:10 AB (Rec: 03/11/25 16:38 AB [id number]) PT Summary Assessment and Plan Potential Rehabilitation Fair Potential Summary Impairments Pain,ROM,Strength,Balance,Coordination,Sensation,Tone, Cognition,Bed Mobility,Transfers,Gait,Activity Tolerance Progress Towards Slow Progress due to Activity Tolerance,Slow Progress - Goals Other Assessment Summary pt completed sit to stand max A x 2 and able to step transfer to chair using FWW max A x 2 and max cues. pt unable to ambulate at this time and expresses fear of falling. pt will benefit from SNF rehab to improve overall strength and mobility independence. Goals Bed Mobility Goal Minimal Assistance Transfer Goal Minimal Assistance,Front Wheeled Walker Gait Goal Minimal Assistance,Front Wheel Walker Gait Distance 50 Other Goals improve bed mobility SBA, transfers SBA using FWW and ambulation using FWW SBA ~ 100 ft Days to Meet Goals 10 Frequency of Treatment Other frequency 1-2x/day Treatment Plan Physical Therapy Bed Mobility Training,Transfer Training,Gait Training, Treatment Plan Therapeutic Exercise,Balance Retraining,Post Op Education,Discharge Planning,Hot or Cold Pack, Neuromuscular Re-ed,Coordination Retraining,Manual Therapy Weight Bearing Status Weight Bearing Weight Bear as Tolerated Status Allowed Weight RLE WBAT Bearing Amount ( enter % or #) (%) Recommendations To Nursing Amount of Assist Mechanical Lift Needed Discharge Recommendations PT Discharge SNF Rehab Recommendations
[2025-03-11 20:00] VITALS: BP 122/67; PULSE 102; RESP 19; TEMP 36.4; O2SAT 95
[2025-03-11] MEDS: SULFASALAZINE 500 MG 2000 EACH PO (20:00)
[2025-03-11 20:03] VITALS: PULSE 99; O2SAT 92
[2025-03-12 04:59] LABS: Add Manual Diff / Slide Review NO; Hematocrit 30.6 % (41-53); Hemoglobin 10.6 g/dL (13.5-17.5); Lymphocytes Absolute Auto 700 /uL (1100-4500); Mean Corpuscular HGB Conc 34.7 % (30-36); Mean Corpuscular Hemoglobin 34.4 PG (26-34); Mean Corpuscular Volume 99.3 fL (80-100); Platelet Count 209 X10^3/uL (150-400)
[2025-03-12 05:12] LABS: Blood Urea Nitrogen 14 mg/dL (9-20); Calcium 8.5 mg/dL (8.4-10.2); Carbon Dioxide 27 mmol/L (22-32); Chloride 99 mmol/L (98-107); Estimated Glomerular Filt Rate > 60 mL/min (>60); Glucose 119 mg/dL (70-99); HEMOLYSIS < 15 (0-50); Potassium 3.8 mmol/L (3.4-5.1); Sodium 132 mmol/L (137-145)
--- NOTE | 2025-03-12 07:22 | P.DS_ITS ---
History of Present Illness History of Present Illness Date Patient Seen: 03/12/25 Chief complaint: fall, right hip pain Discharge Providers Provider Date of admission: 03/09/25 03:34 Primary care physician: Jose A Almonte DO Consults: 03/09/25 03:23 Consult to Occupational Therapy Evaluate & Treat Comment: Physician Instructions: Evaluate and treat Consult to Physical Therapy Evaluate & Treat Comment: Physician Instructions: Evaluate and Treat 03/09/25 13:28 Consult to Discharge Planning Routine Comment: Consult to Occupational Therapy Evaluate & Treat Comment: Physician Instructions: Evaluate and treat Consult to Physical Therapy Evaluate & Treat Comment: Physician Instructions: Evaluate and Treat 03/09/25 18:35 Consult to Pharmacy Routine Comment: high fall risk 03/10/25 07:48 Consult to [facility] Routine Comment: Consulting Provider: [facility] Reason For Exam: Hip Reason for consultation: Hip Has provider been notified: Yes Discharge provider: Allison Milton MD Summary Hospital Course Hospital Course: Clarify diagnosis of encephalopathy to metabolic encephalopathy, resolved. Subjective Subjective Interval history: Summary: Summary: 85-year-old gentleman with history of depression and anxiety as well as ulcerative colitis and chronic low back pain who was admitted with a right femur fracture after a fall. He underwent operative repair with a closed reduction and intramedullary nailing earlier today. Patient reports his pain is improved since surgery. He does report feeling a bit sleepy overall but denies any new complaints. He is looking forward to being able to get up and move again. He denies any chest pain or shortness a breath. 03/09: ORIF. 03/10: Some confusion. S: Feeling much better today, no confusion. Still has an intermittent cough, but no dyspnea. Hip pain is improving. O: NAD, alert and oriented. Fluent speech. Lungs are clear, normal rate and effort. Heart is regular, no murmur gallop or rub. Abdomen is soft, non distended. Extremities are free of edema. Alert and oriented to person, place, and year. Right hip wound dressing is unremarkable and there is no swelling at the surgical site. A/P: 1. Postoperative from intramedullary nailing of impacted right femoral neck fracture Patient is doing well thus far. Will continue pain management and mobilization. 2. Ulcerative colitis, stable. Await medication reconciliation. Plan to resume sulfasalazine once meds have been reconciled 3. Depression, stable. Continue citalopram 4. Normocytic anemia, stable. Mild with hemoglobin at 12.1 today 5. Hyperglycemia, stable. He has no history of diabetes. Likely a stress-induced elevation. 6. Acute encephalopathy. Improved. 7. Covid, Sx for the last week. PLAN: -minimize pain medications -physical therapy and increase activity. -[facility] possible today. -Covid isolation. Code status DNR Prophylaxis Orthopedic surgery has ordered aspirin b.i.d. Exam Vital Signs (past 8 hours): Fraction of Inspired Oxygen 32 SaO2/FiO2 Ratio 287 Oxygen Delivery Method Nasal Cannula Oxygen Flow Rate 3 Objective Labs 03/12/25 04:49 03/12/25 04:49 Labs: Laboratory Results - last 24 hr 03/12/25 04:49 WBC 7.2 RBC 3.08 L Hgb 10.6 L Hct 30.6 L MCV 99.3 MCH 34.4 H MCHC 34.7 RDW 13.0 Plt Count 209 Neut % (Auto) 78.0 H Lymph % (Auto) 9.3 L [place] % (Auto) 8.9 Eos % (Auto) 2.0 Baso % (Auto) 1.8 Neut # (Auto) 5600 Lymph # (Auto) 700 L [place] # (Auto) 600 Eos # (Auto) 100 Baso # (Auto) 100 Sodium 132 L Potassium 3.8 Chloride 99 Carbon Dioxide 27 BUN 14 Creatinine 0.70 Estimated GFR > 60 BUN/Creatinine Ratio 20.0 Glucose 119 H Calcium 8.5 PFSH Medical History (Updated 03/09/25 @ 03:36 by Perry Epperson MD) Depression, unspecified Ulcerative colitis Frequent falls Social History household members: spouse Discharge Plan Discharge orders & Medications Prescriptions: No Action ranitidine HCl 150 mg tablet PO DAILY PRN (Reason: allergic symptoms) ascorbate calcium (vitamin C) 500 mg tablet 500 mg PO DAILY folic acid 800 mcg tablet 0.8 mg PO DAILY cholecalciferol (vitamin D3) 50 mcg (2,000 unit) capsule 50 mcg PO DAILY Calcium & Vitamin D3 600mg PO DAILY Imodium AD 2mg PO DAILY Vitamin B12 1000mcg PO DAILY adult multivitamin PO DAILY flax seed oil PO DAILY citalopram 20 mg tablet 20 mg PO DAILY Qty: 100 3RF sulfasalazine 500 mg tablet 2,000 mg PO BID Qty: 400 3RF Follow up/Referrals: Jose A Almonte DO [Primary Care Provider, [facility]] Discharge Data Primary Care Provider: Jose A Almonte Quality VTE Deep Vein Thrombosis/Pulmonary Embolism Present on Admission: No
[2025-03-12 08:00] VITALS: BP 129/68; PULSE 103; RESP 20; TEMP 36.3; O2SAT 94
[2025-03-12] MEDS: ACETAMINOPHEN 325 MG TABLET 650 MG PO ×2 (08:54→18:41)
[2025-03-12] MEDS: SULFASALAZINE 500 MG 2000 EACH PO ×2 (08:54→20:10)
[2025-03-12] MEDS: CITALOPRAM 10 MG TABLET 20 MG PO (08:54)
[2025-03-12] MEDS: ASPIRIN EC 81 MG TABLET PO ×2 (08:54→20:10)
[2025-03-12 10:29] VITALS: O2SAT 94
--- NOTE | 2025-03-12 10:35 | CM.DPC ---
DCP Cont. Reviewed EMR and team rounds for pt's medical status and updates. Called [facility] to check on the status of them reviewing pt's referral. They can accept, and will start the [employer] auth today. Anticipate d/c tomorrow to that facility, will confirm in the am if the auth is in, and will need to set-up private pay medical transport, will provide credit card to transport company once we know what time to d/c.
[2025-03-12] MEDS: REMDESIVIR 100 MG in SODIUM CHLORIDE 0.9% 250 ML 250 MG IV (11:43)
--- NOTE | 2025-03-12 12:49 | PT-IP ANOTE ---
checked on pt this morning but just transferred with nursing staff to chair and wants to rest first before doing PT. will check back this afternoon
--- NOTE | 2025-03-12 13:25 | PT.IPTN ---
Current Diagnoses Fracture of unspecified part of neck of right femur, initial encounter for closed fracture (03/09/25) Surgery Performed Operation Date: 03/09/25 11:00 Actual Procedures p Intramedullary Nailing Femur(Right) - Keith Daniel MD Physical Therapy Treatment Note M2 PT-IP Current Condition Start: 03/09/25 15:39 Freq: NEEDED Status: Active Protocol: Document 03/09/25 15:39 KJ (Rec: 03/09/25 15:48 KJ [id number]) Physical Therapy Current Condition Current Condition Evaluation Date 03/09/25 Treatment Diagnosis impaired mobility Onset Date 03/08/25 M3 PT-IP Subjective Start: 03/09/25 15:39 Freq: NEEDED Status: Active Protocol: Document 03/12/25 13:25 AB (Rec: 03/12/25 16:38 AB [id number]) Subjective Physical Therapy Visit Type Type Treatment Note Visit Start Time 13:25 Visit Stop Time 13:55 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 Physical Therapy Visit Comments Patient Comments agreeable to do PT M4 PT-IP Mobility and Gait Start: 03/09/25 15:39 Freq: NEEDED Status: Active Protocol: Document 03/12/25 13:25 AB (Rec: 03/12/25 16:38 AB [id number]) PT-Bed Mobility Assessment Sit to Supine Sit to Supine Maximum Assistance,2 Person Assistance,Bedrails PT-Transfer Assessment Sit to and From Stand Sit to and from Maximum Assistance,2 Person Assistance,Use of Upper Stand Extremities Equipment Transfer Assistive Gait Belt,Front Wheeled Walker Device Orthotic/Prosthetic No Devices or Brace: Transfers Transfer Destination Bed Transfer Technique Stand Step Pivot Transfer Ability Level of Assist Maximum Assistance,2 Person Assistance,Use of Upper Extremities Comments Mobility Comments pt sitting on the chair and slightly restless. pt agreed to do PT. pt continues to have confusion and can be impulsive. cues needed for all tasks. sit to stand from the chair max A x 2 and max cues. encouraged pt to ambulate. pt completed ~ 8 ft using FWW max A x 2 and max cues and with chair follow. pt tends to push FWW too far forward. cued to correct but needed assist and frequent cues. pt requested to go back to bed. sit to stand from the chair max A x 2 and max cues and step transfer to bed using fWW max A x 2 and max cues. completed sit to supine max A x 2 and max cues. positioned pt in bed. call light and table placed within reach. Gait Assessment Gait Gait Assistance Maximum Assistance,2 Person Assist Required: Distance (Feet) 8 Able to Maintain Yes Weight Bearing Status During Gait Assistive Devices Assistive Device Gait Belt,Front Wheeled Walker Orthotic/Prosthetic No Devices or Brace: Gait Deviations General Gait Pattern Antalgic,Decreased Stride Length,Decreased Feet Clearance,Step-to Gait Factors Limiting Gait Function Factors Limiting Abnormal Tonal Influences,Decreased Strength,Difficulty Gait Function Following Directions,Limited Range of Motion,Pain,Poor Balance,Poor Safety Awareness M5 PT-IP Objective Assessments Start: 03/09/25 15:39 Freq: NEEDED Status: Active Protocol: Document 03/10/25 16:35 KJ (Rec: 03/10/25 16:43 KJ Desktop) Orientation Orientation/Cognition Level of Alertness Lethargic Orientation Name Safety Awareness Decreased Safety Awareness Memory Description Short Term Impaired Comments intermittantly remembers reason for hospitalization, this is worse than yesterday. Gross Range of Motion Upper Extremity ROM Assessment Within Functional Limits Lower Extremity ROM Assessment Right Impaired Impairments hip and knee impaired Other Assessments Other Other Assessments Pt keeps eyes closed most of the time but opens them upon request. Initially, O2 sats at 79% on 1 l w/nasal cannula. RN changes to face mask and O2 improves to 92% . Pt minimally participating in mobility; used total lift to get pt up to chair. Pt again needs frequent reminders to keep eyes open and stay awake. RN noted pt seemed to aspirate on toothpaste earlier - will be preferable for pt to sit up in chair for dinner. M6 PT-IP Treatment Start: 03/09/25 15:39 Freq: NEEDED Status: Active Protocol: Document 03/12/25 13:25 AB (Rec: 03/12/25 16:38 AB [id number]) Physical Therapy Treatment Education Education Provided Safety M7 PT-IP Assessment and Plan Start: 03/09/25 15:39 Freq: NEEDED Status: Active Protocol: Document 03/12/25 13:25 AB (Rec: 03/12/25 16:38 AB [id number]) PT Summary Assessment and Plan Potential Rehabilitation Fair Potential Summary Impairments Pain,ROM,Strength,Balance,Coordination,Sensation,Tone, Cognition,Bed Mobility,Transfers,Gait,Activity Tolerance Progress Towards Slow Progress due to Activity Tolerance,Slow Progress - Goals Other Assessment Summary pt progressing slowly with mobility and was able to ambulate today using FWW ~ 8 ft max A x 2 and max cues. pt continues to have confusion and decrease safety awareness affecting following directions. pt will require SNF rehab to improve overall strength and mobility. Goals Bed Mobility Goal Minimal Assistance Transfer Goal Minimal Assistance,Front Wheeled Walker Gait Goal Minimal Assistance,Front Wheel Walker Gait Distance 50 Other Goals improve bed mobility SBA, transfers SBA using FWW and ambulation using FWW SBA ~ 100 ft Days to Meet Goals 10 Frequency of Treatment Other frequency 1-2x/day Treatment Plan Physical Therapy Bed Mobility Training,Transfer Training,Gait Training, Treatment Plan Therapeutic Exercise,Balance Retraining,Post Op Education,Discharge Planning,Hot or Cold Pack, Neuromuscular Re-ed,Coordination Retraining,Manual Therapy Weight Bearing Status Weight Bearing Weight Bear as Tolerated Status Allowed Weight RLE WBAT Bearing Amount ( enter % or #) (%) Recommendations To Nursing Amount of Assist 2 Person Assist Needed Discharge Recommendations PT Discharge SNF Rehab Recommendations Transportation Needs Wheelchair/Cabulance at Discharge - PT assist 2
--- NOTE | 2025-03-12 13:25 | OT.IP.TRT ---
Current Diagnoses Fracture of unspecified part of neck of right femur, initial encounter for closed fracture (03/09/25) Surgery Performed Operation Date: 03/09/25 11:00 Actual Procedures p Intramedullary Nailing Femur(Right) - Keith Daniel MD Occupational Therapy Treatment Note M2 OT-IP Current Condition Start: 03/11/25 12:07 Freq: Status: Active Protocol: Document 03/11/25 12:08 [facility] (Rec: 03/11/25 12:18 [facility] Desktop) Occupational Therapy Current Condition Current Condition Evaluation Date 03/11/25 Treatment Diagnosis Fall, R femur fx, S/P R ORIF Weight Bearing Status Weight Bearing Weight Bear as Tolerated Status M3 OT- IP Subjective and Pain Start: 03/11/25 12:07 Freq: Status: Active Protocol: Document 03/12/25 14:33 [facility] (Rec: 03/12/25 14:40 [facility] Desktop) OT- Subjective Occupational Therapy Visit Type Type Treatment Note Visit Start Time 13:25 Visit Stop Time 13:55 Occupational Therapy Visit Comments Patient Comments Pt sitting in the recliner and agreed to try to walk and then get to the bed. Patient/Caregiver To get better. Goals OT Pain Assessment Pain When Pain Assessed During Mobility Location Right Hip Pain Behaviors Facial Grimacing M4 OT- IP ADL's Start: 03/11/25 12:07 Freq: Status: Active Protocol: Document 03/11/25 12:08 [facility] (Rec: 03/11/25 12:18 [facility] Desktop) OT [id number] Comments OT Self-Feeding NOt at meal time. Comments OT ADL-Grooming Comments OT Grooming Comments Not performed. OT ADL-Oral Care Comments Oral Care Comments Not performed. OT ADL-Dressing General Eval Lower Body Dressing Maximum Assistance Ability Areas Needing Socks Assistance OT ADL-Toileting General Evaluation Toileting Ability Total Assistance Areas Needing Empty Catheter or Colostomy Assistance Comments OT Toileting Ray Comments OT ADL-Bathing Comments OT Bathing Comments Sponge bath more appropriate at this time. M5 OT- IP IADL's Start: 03/11/25 12:07 Freq: Status: Active Protocol: Document 03/11/25 12:08 [facility] (Rec: 03/11/25 12:18 [facility] Desktop) OT-Instrumental Activities of Daily Living Home Safety Awareness Home Safety Comments Pt is a bit groggy still. Medication Management Medication Pt will benefit from assist. Management Comments Money Management Money Management Caregiver Provides Assistance Meal Preparation Meal Preparation Caregiver Provides Assist Emt I/85 Emt I/85 Caregiver Provides Assist M6 OT- IP Functional Cognition Start: 03/11/25 12:07 Freq: Status: Active Protocol: Document 03/12/25 14:33 [facility] (Rec: 03/12/25 14:40 [facility] Desktop) Cognitive Factors Limiting Selfcare Function Cognitive Ability Level of Alertness Alert,Confusional State Attention Span Capable of Focused Attention,Capable of Sustained Ability Attention,Unable to Sustain Attention Ability to Follow Able to Follow One Step Commands with Increased Time, Commands Able to Follow One Step Commands with Repetition Cognitive Comments Cognitive Assessment Pt very [place] especially as therapists had CAPR on. Pt Comments needing step by step instructions in addition to visual and tactile cues. Pt insistent on trying to allow pt to sleep on the bench by the window versus in the hospital bed. However when explained the call light will not reach the window, pt agreed. M7 OT- IP Mobility and Balance Start: 03/11/25 12:07 Freq: Status: Active Protocol: Document 03/12/25 14:33 [facility] (Rec: 03/12/25 14:40 [facility] Desktop) OT-Transfer Assessment Sit to and From Stand Sit to and from Maximum Assistance,2 Person Assistance Stand Transfers Transfer Ability Maximum Assistance,2 Person Assistance Technique Transfer Destination Bed,Chair Transfer Technique Stand Step Pivot Comments Mobility Comments MAX AX 2 to stand to the FWW and assist for balance , guiding the FWW, and weight shift so able to take a few steps with close chair follow. Pt MAX AX 2 for transfer back to bed and also to assist to get his trunk and legs back into bed. OT- Balance Assessment Sitting Balance and Reactions Static Sitting Good Balance Ability Dynamic Sitting Fair Balance Ability Standing Balance and Reactions Static Standing Poor Balance Ability Dynamic Standing Poor Balance Ability Comments Other Balance Tests/ As pt stands, tends to posteriorly lean backwards. Deviations/Treatment : M8 OT- IP Objective Assessments Start: 03/11/25 12:07 Freq: Status: Active Protocol: Document 03/11/25 12:08 [facility] (Rec: 03/11/25 12:18 [facility] Desktop) OT Gross Range of Motion Upper Extremity Range of Motion Assessment Within Functional Limits OT Strength Upper Extremity Strength Assessment Within Functional Limits OT- Coordination Assessment Upper Extremity Finger to Nose Test Within Functional Limits M9 OT- IP Assessment and Plan Start: 03/11/25 12:07 Freq: Status: Active Protocol: Document 03/12/25 14:33 [facility] (Rec: 03/12/25 14:40 [facility] Desktop) OT Summary Assessment and Plan Potential Rehabilitation Good Potential Analytic Complexity Moderate at Evaluation Summary OT Impairments Pain,Balance,Functional Cognition,Functional Mobility, Grooming,Dressing,Toileting,Bathing,Toilet Transfers, Shower Transfers,Activity Tolerance Progress Towards Progressing Toward Goals,Slow Progress due to Pain,Slow Goals Progress due to Cognition Assessment Summary Pt able to participate in transfer and taking a few steps in the room with MAX vc for safety and MAX AX 2 with FWW. Pt to go to skilled rehab when medically stable. Goals Self-Feeding Goal Independent Grooming Goal Independent Dressing Goal Minimal Assistance Toileting Goal Minimal Assistance Bathing Goal Minimal Assistance Toilet Transfer Goal Standby Assistance Shower Transfer Goal Contact Guard Assistance Days to Meet Goals 19 Frequency of Treatment Other frequency 5x/week Treatment Plan OT Treatment Plan ADL Training,Functional Cognition Training,Functional Mobility,Patient/Family Education,Discharge Planning Other Treatment Transfer to the [facility] with MODA X 2 with FWW. Recommendations and Next Treatment Focus Discharge Recommendations OT Discharge SNF Rehab Recommendations Transportation Needs Wheelchair/Cabulance at Discharge
--- NOTE | 2025-03-12 15:32 | P.PN_ITS ---
Subjective Subjective Date Patient Seen: 03/12/25 Interval history: Subjective Summary: Summary: 85-year-old gentleman with history of depression and anxiety as well as ulcerative colitis and chronic low back pain who was admitted with a right femur fracture after a fall. He underwent operative repair with a closed reduction and intramedullary nailing on 03/09. 03/09: ORIF. 03/10: Some confusion. 03/12: Patient reports his pain is improved since surgery. He does report feeling a bit sleepy overall but denies any new complaints. He is looking forward to being able to get up and move again. He denies any chest pain or shortness a breath. He would like to stop using the morphine since it seems to make him hallucinate. The white count is 7.2 with a hemoglobin of 10.6. The potassium is 3.8 with a creatinine of 0.7. The sodium is 132. He has been hypoxic since arrival, needing between 2 and 3 L nasal cannula, possibly related to his COVID diagnosis. Remdesivir and dexamethasone will be started today. He and his say that he had been falling repeatedly at home shortly before this fracture, perhaps that was also a COVID complication? O: NAD, alert and oriented. Fluent speech. Lungs are clear, normal rate and effort. Heart is regular, no murmur gallop or rub. Extremities are free of edema. Alert and oriented to person, place, and year. Right hip wound dressing is unremarkable and there is no swelling at the surgical site. A/P: 1. Postoperative from intramedullary nailing of impacted right femoral neck fracture Patient is doing well thus far. Will continue pain management and mobilization. 2. Ulcerative colitis, stable. Await medication reconciliation. Plan to resume sulfasalazine once meds have been reconciled 3. Depression, stable. Continue citalopram 4. Normocytic anemia, stable. Mild with hemoglobin at 12.1 today 5. Hyperglycemia, stable. He has no history of diabetes. Likely a stress-induced elevation. 6. Covid Hypoxia, not on oxygen at home at baseline. Continues on 2 L nasal cannula. Add dexamethasone 6 mg IV Q 24 hours for 10 days and remdesivir for 5 days IV. 6. Metabolic encephalopathy, resolved. PLAN: -minimize pain medications -physical therapy and increase activity. -[facility] in [place] when stable. -Covid isolation. Due to hypoxia begin remdesivir/dexamethasone on 03/12. Code status DNR Prophylaxis Orthopedic surgery has ordered aspirin b.i.d. Exam Vital Signs (past 8 hours): - 03/12/25 08:00 03/12/25 10:29 Temperature 97.3 F L Pulse Rate 103 H Respiratory Rate 20 Blood Pressure 129/68 Pulse Oximetry 94 94 Oxygen Flow Rate 5 4 Fraction of Inspired Oxygen 36 Fraction of Inspired Oxygen 36 SaO2/FiO2 Ratio 261 Oxygen Delivery Method Nasal Cannula Oxygen Flow Rate 4 Objective Labs 03/12/25 04:49 03/12/25 04:49 Labs: Laboratory Results - last 24 hr 03/12/25 04:49 WBC 7.2 RBC 3.08 L Hgb 10.6 L Hct 30.6 L MCV 99.3 MCH 34.4 H MCHC 34.7 RDW 13.0 Plt Count 209 Neut % (Auto) 78.0 H Lymph % (Auto) 9.3 L [place] % (Auto) 8.9 Eos % (Auto) 2.0 Baso % (Auto) 1.8 Neut # (Auto) 5600 Lymph # (Auto) 700 L [place] # (Auto) 600 Eos # (Auto) 100 Baso # (Auto) 100 Sodium 132 L Potassium 3.8 Chloride 99 Carbon Dioxide 27 BUN 14 Creatinine 0.70 Estimated GFR > 60 BUN/Creatinine Ratio 20.0 Glucose 119 H Calcium 8.5 PFSH Medical History (Updated 03/09/25 @ 03:36 by Perry Epperson MD) Depression, unspecified Ulcerative colitis Frequent falls Social History household members: spouse Assessment & Plan Time-Based Coding :: [TOTAL MINUTES] spent with patient and on the chart (including review of chart, obtaining history, exam, reviewing outside data, placing orders, documenting exam and treatment plan, and counseling patient) on [DATE]. Quality VTE Deep Vein Thrombosis/Pulmonary Embolism Present on Admission: No
[2025-03-12 19:53] VITALS: O2SAT 95
[2025-03-12 20:00] VITALS: BP 126/54; PULSE 79; RESP 18; TEMP 36.6; O2SAT 98
[2025-03-12] MEDS: SODIUM CHLORIDE 0.9% FLUSH 10 ML IV (20:11)
[2025-03-13 05:58] LABS: Add Manual Diff / Slide Review NO; Hematocrit 30.4 % (41-53); Hemoglobin 10.6 g/dL (13.5-17.5); Lymphocytes Absolute Auto 700 /uL (1100-4500); Mean Corpuscular HGB Conc 35.1 % (30-36); Mean Corpuscular Hemoglobin 34.1 PG (26-34); Mean Corpuscular Volume 97.3 fL (80-100); Platelet Count 277 X10^3/uL (150-400)
[2025-03-13 06:01] LABS: Blood Urea Nitrogen 18 mg/dL (9-20); Calcium 9.0 mg/dL (8.4-10.2); Carbon Dioxide 24 mmol/L (22-32); Chloride 101 mmol/L (98-107); Estimated Glomerular Filt Rate > 60 mL/min (>60); Glucose 144 mg/dL (70-99); HEMOLYSIS < 15 (0-50); Potassium 4.3 mmol/L (3.4-5.1); Sodium 134 mmol/L (137-145)
--- NOTE | 2025-03-13 07:22 | P.PN_ITS ---
Subjective Subjective Date Patient Seen: 03/13/25 Interval history: 85-year-old gentleman with history of depression and anxiety as well as ulcerative colitis and chronic low back pain who was admitted with a right femur fracture after a fall. He underwent operative repair with a closed reduction and intramedullary nailing on 03/09. 03/09: ORIF. 03/10: Some confusion. 03/12: Patient reports his pain is improved since surgery. He does report feeling a bit sleepy overall but denies any new complaints. He is looking forward to being able to get up and move again. He denies any chest pain or shortness a breath. He would like to stop using the morphine since it seems to make him hallucinate. The white count is 7.2 with a hemoglobin of 10.6. The potassium is 3.8 with a creatinine of 0.7. The sodium is 132. He has been hypoxic since arrival, needing between 2 and 3 L nasal cannula, possibly related to his COVID diagnosis. Remdesivir and dexamethasone will be started today. He and his say that he had been falling repeatedly at home shortly before this fracture, perhaps that was also a COVID complication? 03/13: He remains mildly hypoxic, currently on 2 L nasal cannula. This is day 2 of remdesivir/dexamethasone IV. His discharge to [facility] for the indicated rehab postoperatively is now on scheduled for day 5 of remdesivir which would be 03/16. Peer to peer discussion regarding a [employer] insurance approval for rehab was accomplished today. Per physical therapy continues to need 2 person assist for save mobilization. O: NAD, alert and oriented. Fluent speech. Lungs are clear, normal rate and effort. Heart is regular, no murmur gallop or rub. Extremities are free of edema. Alert and oriented to person, place, and year. Right hip wound dressing is unremarkable and there is no swelling at the surgical site. A/P: 1. Postoperative from intramedullary nailing of impacted right femoral neck fracture Patient is doing well thus far. Will continue pain management and mobilization. PT reports continuing need for 2 person assist for transfers and mobilization. SNF level rehab is recommended. 2. Ulcerative colitis, stable. Continue Sulfasalazine home dose 3. Depression, stable. Continue citalopram 4. Normocytic anemia, stable. Mild with hemoglobin at 10.6 today 5. Hyperglycemia, stable. He has no history of diabetes. Likely a stress-induced elevation. 6. Covid Hypoxia, not on oxygen at home at baseline. Continues on 2 L nasal cannula. Added dexamethasone 6 mg IV Q 24 hours for 10 days and remdesivir for 5 days IV on 03/12. 6. Metabolic encephalopathy, resolved. PLAN: -minimize pain medications -physical therapy and increase activity. -[facility] in [place] when stable. PT reports continued need for 2 PA for mobilization and transfers. -Covid isolation. Due to hypoxia began remdesivir/dexamethasone on 03/12, to complete remdesivir on 03/16. Code status DNR Prophylaxis Orthopedic surgery has ordered aspirin b.i.d. Exam Vital Signs (past 8 hours): Fraction of Inspired Oxygen 36 SaO2/FiO2 Ratio 261 Oxygen Delivery Method Nasal Cannula Oxygen Flow Rate 2 Objective Labs 03/13/25 04:43 03/13/25 04:43 Labs: Laboratory Results - last 24 hr 03/13/25 04:43 WBC 7.5 RBC 3.12 L Hgb 10.6 L Hct 30.4 L MCV 97.3 MCH 34.1 H MCHC 35.1 RDW 12.9 Plt Count 277 Neut % (Auto) 80.8 H Lymph % (Auto) 9.4 L [place] % (Auto) 9.7 Eos % (Auto) 0.1 L Baso % (Auto) 0.0 Neut # (Auto) 6100 Lymph # (Auto) 700 L [place] # (Auto) 700 Eos # (Auto) 0 Baso # (Auto) 0 Sodium 134 L Potassium 4.3 Chloride 101 Carbon Dioxide 24 BUN 18 Creatinine 0.69 Estimated GFR > 60 BUN/Creatinine Ratio 26.1 H Glucose 144 H Calcium 9.0 PFSH Medical History (Updated 03/09/25 @ 03:36 by Perry Epperson MD) Depression, unspecified Ulcerative colitis Frequent falls Social History household members: spouse Assessment & Plan Time-Based Coding :: [TOTAL MINUTES] spent with patient and on the chart (including review of chart, obtaining history, exam, reviewing outside data, placing orders, documenting exam and treatment plan, and counseling patient) on [DATE]. Quality VTE Deep Vein Thrombosis/Pulmonary Embolism Present on Admission: No
[2025-03-13 08:00] VITALS: BP 136/67; PULSE 96; RESP 20; TEMP 36.3; O2SAT 96
[2025-03-13] MEDS: SULFASALAZINE 500 MG 2000 EACH PO (08:22)
[2025-03-13] MEDS: CITALOPRAM 10 MG TABLET 20 MG PO (08:22)
[2025-03-13] MEDS: ASPIRIN EC 81 MG TABLET PO ×2 (08:22→21:35)
[2025-03-13] MEDS: REMDESIVIR 100 MG in SODIUM CHLORIDE 0.9% 250 ML 250 MG IV (08:23)
[2025-03-13] MEDS: SODIUM CHLORIDE 0.9% FLUSH 10 ML IV ×2 (08:33→21:35)
--- NOTE | 2025-03-13 11:39 | PT.IPTN ---
Current Diagnoses Fracture of unspecified part of neck of right femur, initial encounter for closed fracture (03/09/25) Surgery Performed Operation Date: 03/09/25 11:00 Actual Procedures p Intramedullary Nailing Femur(Right) - Keith Daniel MD Physical Therapy Treatment Note M2 PT-IP Current Condition Start: 03/09/25 15:39 Freq: NEEDED Status: Active Protocol: Document 03/09/25 15:39 KJ (Rec: 03/09/25 15:48 KJ [id number]) Physical Therapy Current Condition Current Condition Evaluation Date 03/09/25 Treatment Diagnosis impaired mobility Onset Date 03/08/25 M3 PT-IP Subjective Start: 03/09/25 15:39 Freq: NEEDED Status: Active Protocol: Document 03/13/25 11:39 DLM (Rec: 03/13/25 13:53 DLM Desktop) Subjective Physical Therapy Visit Type Type Treatment Note Visit Start Time 11:17 Visit Stop Time 11:39 Notes 22 min Number of HOUSEKEEPER Visits 0 Physical Therapy Visit Comments Patient Comments He reports he gets tired fast Therapy Pain Assessment Pain When Pain Assessed During Mobility Pain Present Pain Present Pain Reported Location Right Hip Description Aching Pain Behaviors Facial Grimacing,Guarding Pain Management Modification of Treatment,Re-positioning Techniques M4 PT-IP Mobility and Gait Start: 03/09/25 15:39 Freq: NEEDED Status: Active Protocol: Document 03/13/25 11:39 DLM (Rec: 03/13/25 13:53 DLM Desktop) PT-Bed Mobility Assessment Sit to Supine Sit to Supine Minimal Assistance Scooting Scooting to Edge of Standby Assistance Bed PT-Transfer Assessment Sit to and From Stand Sit to and from Minimal Assistance,Moderate Assistance Stand Equipment Transfer Assistive Gait Belt,Front Wheeled Walker Device Transfers Transfer Destination Bed Transfer Technique Stand Step Pivot Transfer Ability Level of Assist Minimal Assistance,Use of Upper Extremities Comments Mobility Comments He has significant posterior lean with initial standing and during initial gait but it gradually improved as he ambulated. He shows no knee buckling right LE during gait. Pt taking small steps with FWW and slow pace Gait Assessment Gait Gait Assistance Minimum Assistance,Moderate Assistance Required: Distance (Feet) 10 Assistive Devices Assistive Device Gait Belt,Front Wheeled Walker Gait Deviations General Gait Pattern Antalgic,Decreased Stride Length,Step-to Gait Factors Limiting Gait Function Factors Limiting Decreased Activity Tolerance,Decreased Strength,Poor Gait Function Balance,Poor Safety Awareness Comments Gait Comments He ambulated around the bed then took a seated rest on the bed. After a rest break he refused further gait training stating he was too tired. Pt requesting back to bed. A second person was present during gait training to decrease his fall risks. PT-Balance Assessment Sitting Balance and Reactions Static Sitting Good Balance Ability Dynamic Sitting Fair Balance Ability Standing Balance and Reactions Static Standing Fair Balance Ability Dynamic Standing Poor Balance Ability Device Used FWW M5 PT-IP Objective Assessments Start: 03/09/25 15:39 Freq: NEEDED Status: Active Protocol: Document 03/13/25 11:39 DLM (Rec: 03/13/25 13:53 DLM Desktop) Orientation Orientation/Cognition Level of Alertness Confusional State Safety Awareness Decreased Safety Awareness Memory Description Short Term Impaired Comments he is pleasant and cooperative, he is tangential in conversation, pt attempting to joke with staff M6 PT-IP Treatment Start: 03/09/25 15:39 Freq: NEEDED Status: Active Protocol: Document 03/13/25 11:39 DLM (Rec: 03/13/25 13:53 DLM Desktop) Physical Therapy Treatment Education Education Provided Safety Other Treatments Other Treatment His family observed treatment session but did not Performed actively participate. M7 PT-IP Assessment and Plan Start: 03/09/25 15:39 Freq: NEEDED Status: Active Protocol: Document 03/13/25 11:39 DLM (Rec: 03/13/25 13:53 DLM Desktop) PT Summary Assessment and Plan Summary Impairments Pain,ROM,Strength,Balance,Coordination,Sensation, Cognition,Bed Mobility,Transfers,Gait,Activity Tolerance Progress Towards Slow Progress due to Medical Issues,Slow Progress due Goals to Activity Tolerance Assessment Summary Maxx continues to slow progress in therapy. He was able to increase his distance of gait with improved functional use of his right LE and less staff assistance. He has a significant posterior lean in standing that improved with training during this visit. He continues to be confused and needs a lot of cues for safety. He can follow simple instructions for mobility. Continue to recommend SNF rehab at discharge to assist with his functional recovery and progresssion of gait. Goals Bed Mobility Goal Standby Assistance Transfer Goal Minimal Assistance,Front Wheeled Walker Gait Goal Minimal Assistance,Front Wheel Walker Gait Distance 50 Other Goals transfers SBA using FWW and ambulation using FWW SBA ~ 100 ft Days to Meet Goals 10 Frequency of Treatment Frequency Of Once a Day Treatment Treatment Plan Physical Therapy Bed Mobility Training,Transfer Training,Gait Training, Treatment Plan Therapeutic Exercise,Balance Retraining,Discharge Planning,Hot or Cold Pack,Neuromuscular Re-ed, Coordination Retraining Weight Bearing Status Weight Bearing Weight Bear as Tolerated Status Allowed Weight RLE WBAT after ORIF femur Bearing Amount ( enter % or #) (%) Recommendations To Nursing Amount of Assist 2 Person Assist Needed Discharge Recommendations PT Discharge SNF Rehab Recommendations Transportation Needs Wheelchair/Cabulance at Discharge - PT assist 1-2
--- NOTE | 2025-03-13 11:40 | OT.IP.TRT ---
Current Diagnoses Fracture of unspecified part of neck of right femur, initial encounter for closed fracture (03/09/25) Surgery Performed Operation Date: 03/09/25 11:00 Actual Procedures p Intramedullary Nailing Femur(Right) - Keith Daniel MD Occupational Therapy Treatment Note M2 OT-IP Current Condition Start: 03/11/25 12:07 Freq: Status: Active Protocol: Document 03/11/25 12:08 [facility] (Rec: 03/11/25 12:18 [facility] Desktop) Occupational Therapy Current Condition Current Condition Evaluation Date 03/11/25 Treatment Diagnosis Fall, R femur fx, S/P R ORIF Weight Bearing Status Weight Bearing Weight Bear as Tolerated Status M3 OT- IP Subjective and Pain Start: 03/11/25 12:07 Freq: Status: Active Protocol: Document 03/13/25 12:11 [facility] (Rec: 03/13/25 12:23 [facility] Desktop) OT- Subjective Occupational Therapy Visit Type Type Treatment Note Visit Start Time 10:45 Visit Stop Time 11:40 Occupational Therapy Visit Comments Patient Comments Pt's son and in the room and pt wanting to go back to bed. Patient/Caregiver To get better. Goals OT Pain Assessment Pain When Pain Assessed During Mobility Location Right Hip Pain Behaviors Facial Grimacing M4 OT- IP ADL's Start: 03/11/25 12:07 Freq: Status: Active Protocol: Document 03/13/25 12:11 [facility] (Rec: 03/13/25 12:23 [facility] Desktop) OT [id number] Comments OT Self-Feeding Not at meal time. Comments OT ADL-Grooming General Evaluation Grooming Ability Standby Assistance Comments OT Grooming Comments set-up while seated OT ADL-Oral Care General Eval Oral Care Ability Standby Assistance Comments Oral Care Comments Pt not able to spit appropriately in the basin and ended up getting his gown wet. OT ADL-Dressing General Eval Upper Body Dressing Minimal Assistance Ability Lower Body Dressing Minimal Assistance,Maximum Assistance Ability Comments OT Dressing Comments JAMIN to help change out wet gown. Able to practice with pt use of head of loss prevention and sock aid for LB dressing. Pt needing MAX vc for instructions and reminders of where he placed the head of loss prevention and sock aid. Pt will benefit from more practice. OT ADL-Toileting General Evaluation Toileting Ability Total Assistance Areas Needing Empty Catheter or Colostomy Assistance Comments OT Toileting Ray Comments OT ADL-Bathing Comments OT Bathing Comments After set-up of wash cloth , pt able to wash underneath his armpits. Pt will benefit from trying to shower tomorrow. M5 OT- IP IADL's Start: 03/11/25 12:07 Freq: Status: Active Protocol: Document 03/11/25 12:08 [facility] (Rec: 03/11/25 12:18 [facility] Desktop) OT-Instrumental Activities of Daily Living Home Safety Awareness Home Safety Comments Pt is a bit groggy still. Medication Management Medication Pt will benefit from assist. Management Comments Money Management Money Management Caregiver Provides Assistance Meal Preparation Meal Preparation Caregiver Provides Assist Rock Loader Rock Loader Caregiver Provides Assist M6 OT- IP Functional Cognition Start: 03/11/25 12:07 Freq: Status: Active Protocol: Document 03/13/25 12:11 [facility] (Rec: 03/13/25 12:23 [facility] Desktop) Cognitive Factors Limiting Selfcare Function Cognitive Ability Level of Alertness Alert,Confusional State Attention Span Capable of Focused Attention,Capable of Sustained Ability Attention,Unable to Sustain Attention Ability to Follow Able to Follow One Step Commands with Increased Time, Commands Able to Follow One Step Commands with Repetition Cognitive Comments Cognitive Assessment Pt still needing step by step cues and a bit tangential Comments in conversation. Pt needing MAX vc for educations of head of loss prevention and sock aid. M7 OT- IP Mobility and Balance Start: 03/11/25 12:07 Freq: Status: Active Protocol: Document 03/13/25 12:11 [facility] (Rec: 03/13/25 12:23 [facility] Desktop) OT- Bed Mobility Assessment Sit to Supine Sit to Supine Assist Minimal Assistance OT-Transfer Assessment Sit to and From Stand Sit to and from Moderate Assistance,1 Person Assistance Stand Transfers Transfer Ability Minimal Assistance,Moderate Assistance Technique Transfer Destination Bed,Chair Transfer Technique Stand Step Pivot Comments Mobility Comments MODA x1 to stand to the FWW and initially lean posteriorly. Able to walk with FWW with MIN/MODA , occasional assist to guide the FWW and assist for balance. Pt much improved from yesterday. OT- Balance Assessment Sitting Balance and Reactions Static Sitting Normal Balance Ability Dynamic Sitting Good Balance Ability Standing Balance and Reactions Static Standing Fair Balance Ability Dynamic Standing Poor Balance Ability Comments Other Balance Tests/ As pt stands, tends to posteriorly lean backwards. Deviations/Treatment : M8 OT- IP Objective Assessments Start: 03/11/25 12:07 Freq: Status: Active Protocol: Document 03/11/25 12:08 [facility] (Rec: 03/11/25 12:18 [facility] Desktop) OT Gross Range of Motion Upper Extremity Range of Motion Assessment Within Functional Limits OT Strength Upper Extremity Strength Assessment Within Functional Limits OT- Coordination Assessment Upper Extremity Finger to Nose Test Within Functional Limits M9 OT- IP Assessment and Plan Start: 03/11/25 12:07 Freq: Status: Active Protocol: Document 03/13/25 12:11 [facility] (Rec: 03/13/25 12:23 [facility] Desktop) OT Summary Assessment and Plan Potential Rehabilitation Good Potential Analytic Complexity Moderate at Evaluation Summary OT Impairments Pain,Balance,Functional Cognition,Functional Mobility, Grooming,Dressing,Toileting,Bathing,Toilet Transfers, Shower Transfers,Activity Tolerance Progress Towards Progressing Toward Goals,Slow Progress due to Pain,Slow Goals Progress due to Cognition Assessment Summary Pt doing much better with mobility need and one person assist for transfer and bed mobility today. Pt able to practice use of LB dressing equipment for needs. Pt still need [facility] for safety awareness and for education of how to use LB dressing equipment. Pt to go to skilled rehab when medically stable. Goals Self-Feeding Goal Independent Grooming Goal Independent Dressing Goal Standby Assistance Toileting Goal Standby Assistance Bathing Goal Minimal Assistance Toilet Transfer Goal Independent Shower Transfer Goal Standby Assistance Days to Meet Goals 20 Frequency of Treatment Other frequency 5x/week Treatment Plan OT Treatment Plan ADL Training,Functional Cognition Training,Functional Mobility,Patient/Family Education,Discharge Planning Other Treatment Pt to be able to shower with MODA. Recommendations and Next Treatment Focus Discharge Recommendations OT Discharge SNF Rehab Recommendations Transportation Needs Wheelchair/Cabulance at Discharge
--- NOTE | 2025-03-13 14:10 | DIET.CONS ---
Dietary Consultation Note Admission Date: 03/09/2025 03:34 Assessment: 85 y M admitted for femur fx. Dietitian screened for LOS. EMR reviewed. Pt covid+, hx of stable UC. Recent PO intakes 50-100%. DFM reviewed for meal composition. Ht: 180.34 cm Wt: 83.915 kg BMI: 25.7 UBW: 87 kg on 02/10/25 (-3% weight loss in 1 month, non-severe) Last BM: 03/13/25 (03/13/25 09:43) MNA: 11 Alexandre Score: 20 Diet: 03/09/25 Dinner General (Regular) Diet Diet Modifications: Food Texture: Level 7 - Regular Liquid Consistency: Level 0 - Thin Nutrition Percent Meal Consumed 50% 03/13/25 09:00 Percent Meal Consumed 100% 03/11/25 18:00 Labs: RBC 3.12 X10^6/uL (4.5-5.9) L 03/13/25 04:43 Hgb 10.6 g/dL (13.5-17.5) L 03/13/25 04:43 Hct 30.4 % (41-53) L 03/13/25 04:43 Creatinine 0.69 mg/dL (0.66-1.25) 03/13/25 04:43 NT-Pro-B Natriuret Pep 784 pg/mL (<450) H 03/10/25 06:12 Nutrition Diagnosis: none at this time Monitoring/Evaluations: monitoring PO intakes, if multiple less than 75%, start Ensure+ protein supplement to prevent further weight loss Electronically Signed by: Tara Saxena 03/13/25 14:10 Clinical Dietitian [address] [id number]
--- NOTE | 2025-03-13 15:26 | CM.DPC ---
DCP SNF Planning Cont: Per MD, pt needs 5 day dose of Remdesivir and per Pharmacist last dose will be Sun 03/16. SW called [facility] admissions and discussed if they can accept pt on Remdesivir and per their team they would have to request a carve out from insurance so preference is accept pt on Monday and they have the staff for a Monday admission. Per [facility] Adv, they are requesting Peer to Peer for SNF auth and if pt not ready for d/c until Mon then they will need facility to submit for auth again either tomorrow Mon or Sat but they feel they can provide auth Mon knowing he plans to d/c Monday. [facility] will need updated clinicals sent to them tomorrow Monday towards submitting for SNF auth with Austen. Dr. Milton did complete the Peer to Peer with insurance today. Called [facility] and they do not transport on Sundays. Called [facility] and they can transport pt Sun but at 1000 and gave quote of $310. Called spouse and updated her on above about Sun discharge and cost for transport and spouse agreeable to pay and confirms agreeable with d/c plan. Updated [facility] and they will call spouse tomorrow or Sat for payment and have pt on their schedule for Sun 1000 and will bring w/c for transport. Updated . Kayal Griffith, [employer]
[2025-03-13 20:00] VITALS: BP 126/63; PULSE 86; RESP 15; TEMP 36.2; O2SAT 91
[2025-03-14] MEDS: HALOPERIDOL 5 MG/ML VIAL IV (00:14)
--- NOTE | 2025-03-14 00:41 | PC.NURSE ---
shift mgr, Patient was agitated attempting to remove Ray, patient refused to follow directions and began to increase agitation, RN administered Haldol per EMAR, patient then was able to follow directions and cooperate with reposition and fell asleep within 30 minutes.
--- NOTE | 2025-03-14 06:55 | PM.PN.1 ---
Subjective Subjective Date Patient Seen: 03/14/25 Interval history: 85-year-old gentleman with history of depression and anxiety as well as ulcerative colitis and chronic low back pain who was admitted with a right femur fracture after a fall. He underwent operative repair with a closed reduction and intramedullary nailing on 03/09. 03/09: ORIF. 03/10: Some confusion. 03/12: Patient reports his pain is improved since surgery. He does report feeling a bit sleepy overall but denies any new complaints. He is looking forward to being able to get up and move again. He denies any chest pain or shortness a breath. He would like to stop using the morphine since it seems to make him hallucinate. The white count is 7.2 with a hemoglobin of 10.6. The potassium is 3.8 with a creatinine of 0.7. The sodium is 132. He has been hypoxic since arrival, needing between 2 and 3 L nasal cannula, possibly related to his COVID diagnosis. Remdesivir and dexamethasone will be started today. He and his say that he had been falling repeatedly at home shortly before this fracture, perhaps that was also a COVID complication? 03/13: He remains mildly hypoxic, currently on 2 L nasal cannula. This is day 2 of remdesivir/dexamethasone IV. His discharge to [facility] nursing [facility] for the indicated rehab postoperatively is now on scheduled for day 5 of remdesivir which would be 03/16. Peer to peer discussion regarding a [employer] insurance approval for rehab was accomplished today. Per physical therapy continues to need 2 person assist for save mobilization. 03/14: Overnight he had increased agitation likely related to the dexamethasone effects. He is still somewhat cognitively off this morning diverting from questions and answering with platitudes. We will be trialing him on Seroquel this evening. He is 94% on room air, now off all oxygen. The hemoglobin was postoperatively stable at 10.6 when last checked on 03/13. He is set up to discharge in 2 more days once the remdesivir is completed. O: NAD, alert and oriented. Fluent speech. Lungs are clear, normal rate and effort. Heart is regular, no murmur gallop or rub. Extremities are free of edema. Alert and oriented to person, place, and year. Right hip wound dressing is unremarkable and there is no swelling at the surgical site. A/P: 1. Postoperative intramedullary nailing of impacted right femoral neck fracture Patient is doing well thus far. Will continue pain management and mobilization. Physical Therapy reports continuing need for 2 person assist for transfers and mobilization. SNF level rehab is recommended. 2. Ulcerative colitis, stable. Continue Sulfasalazine home dose 3. Depression, stable. Continue citalopram 4. Normocytic anemia, stable. Mild with hemoglobin at 10.6 today 5. Hyperglycemia, stable. He has no history of diabetes. Likely a stress-induced elevation. 6. Covid Hypoxia, not on oxygen at home at baseline. Continues on 2 L nasal cannula. Added dexamethasone 6 mg IV Q 24 hours for 10 days and remdesivir for 5 days IV on 03/12. Seroquel at for dexamethasone related overnight agitation initiated on 03/14. 6. Metabolic encephalopathy, resolved. -trial of Seroquel after recurrent agitation on 03/14 PLAN: -minimize pain medications -physical therapy and increase activity. -[facility] in [place] when stable. Physical therapy reports continued need for 2 PA for mobilization and transfers. -Covid isolation. Due to hypoxia began remdesivir/dexamethasone on 03/12, to complete remdesivir on 03/16. -disposition is transportation already set up for transfer to SNF early on the morning of 03/16. Code status DNR Prophylaxis Orthopedic surgery has ordered aspirin b.i.d. Exam Vital Signs (past 8 hours): Fraction of Inspired Oxygen 36 SaO2/FiO2 Ratio 261 Oxygen Delivery Method Nasal Cannula Oxygen Flow Rate 0 Objective Labs 03/13/25 04:43 03/13/25 04:43 [facility] Medical History (Updated 03/09/25 @ 03:36 by Perry Epperson MD) Depression, unspecified Ulcerative colitis Frequent falls Social History household members: spouse Assessment & Plan Time-Based Coding :: [TOTAL MINUTES] spent with patient and on the chart (including review of chart, obtaining history, exam, reviewing outside data, placing orders, documenting exam and treatment plan, and counseling patient) on [DATE]. Quality VTE Deep Vein Thrombosis/Pulmonary Embolism Present on Admission: No
[2025-03-14 07:48] VITALS: BP 133/73; PULSE 94; RESP 25; TEMP 36; O2SAT 94
[2025-03-14] MEDS: SULFASALAZINE 500 MG 2000 EACH PO ×2 (10:00→20:28)
[2025-03-14] MEDS: ASPIRIN EC 81 MG TABLET PO ×2 (10:00→20:28)
[2025-03-14] MEDS: SODIUM CHLORIDE 0.9% FLUSH 10 ML IV ×2 (10:00→20:28)
[2025-03-14] MEDS: CITALOPRAM 10 MG TABLET 20 MG PO (10:00)
[2025-03-14] MEDS: REMDESIVIR 100 MG in SODIUM CHLORIDE 0.9% 250 ML 250 MG IV (10:00)
--- NOTE | 2025-03-14 11:51 | CM.DPNOTE ---
DCP Continued: Reviewed EMR and team rounds for pt?s medical status. Per hospitalist, pt is no longer short of breath, still on track for completing Remdesivir dose on 03/16. Per RN, pt on room air. DCP sent updated PT/OT/MD notes to [facility] via fax for pending insurance authorization. Transport: [facility] arranged for Sun 03/16 at 1000, family coordinating with company for private pay. Plan: Anticipating dc on Sun 03/16 at 1000 via [facility] to [facility] in [place]. CM Team will continue to follow for coordination of discharge plans. MANISHA DriverSW
--- NOTE | 2025-03-14 15:25 | PT.IPTN ---
Current Diagnoses Fracture of unspecified part of neck of right femur, initial encounter for closed fracture (03/09/25) Surgery Performed Operation Date: 03/09/25 11:00 Actual Procedures p Intramedullary Nailing Femur(Right) - Keith Daniel MD Physical Therapy Treatment Note M2 PT-IP Current Condition Start: 03/09/25 15:39 Freq: NEEDED Status: Active Protocol: Document 03/09/25 15:39 KJ (Rec: 03/09/25 15:48 KJ [id number]) Physical Therapy Current Condition Current Condition Evaluation Date 03/09/25 Treatment Diagnosis impaired mobility Onset Date 03/08/25 M3 PT-IP Subjective Start: 03/09/25 15:39 Freq: NEEDED Status: Active Protocol: Document 03/14/25 15:25 AB (Rec: 03/14/25 17:52 AB [id number]) Subjective Physical Therapy Visit Type Type Treatment Note Visit Start Time 15:25 Visit Stop Time 16:07 Number of STAGE BUILDER Visits 0 Physical Therapy Visit Comments Patient Comments agreed to do PT Therapy Pain Assessment Pain When Pain Assessed During Mobility Pain Present Pain Present Pain Reported Location Right Hip Scale Used pain scale not stated Pain Behaviors Guarding Pain Management Distraction,Modification of Treatment,Re-positioning, Techniques Timing of Activity with Medications M4 PT-IP Mobility and Gait Start: 03/09/25 15:39 Freq: NEEDED Status: Active Protocol: Document 03/14/25 15:25 AB (Rec: 03/14/25 17:52 AB [id number]) PT-Bed Mobility Assessment Supine to Sit Supine to Sit Maximum Assistance,1 Person Assistance,Head of Bed Elevated,Bedrails Sit to Supine Sit to Supine Maximum Assistance,1 Person Assistance,Bedrails Scooting Scooting to Edge of Moderate Assistance Bed PT-Transfer Assessment Sit to and From Stand Sit to and from Moderate Assistance,Maximum Assistance,1 Person Stand Assistance,Use of Upper Extremities Equipment Transfer Assistive Gait Belt,Front Wheeled Walker Device Orthotic/Prosthetic No Devices or Brace: Comments Mobility Comments pt in bed and agreed to do PT. supine to sit max A and max cues. pt continues to have slight confusion and needed cues for initiation. needed max A for initial siting balance on EOB with increase posterior trunk lean. mod A for scooting to EOB. sit to stand from EOB mod to max A and max cues. ambulated in room using FWW ~ 30 ft min A and cues. pt stand by the sink and was able to maintain standing balance using fWW CGA to min A while completing grooming. pt requested to go back to bed. ambulated to the bed using fWW min A. completed sit to supine max A and max cues. positioned pt in bed. max A x 2 for scooting towards HOB. call light and table placed within reach. Gait Assessment Gait Gait Assistance Minimum Assistance Required: Distance (Feet) 30 Able to Maintain Yes Weight Bearing Status During Gait Assistive Devices Assistive Device Gait Belt,Front Wheeled Walker Orthotic/Prosthetic No Devices or Brace: Gait Deviations General Gait Pattern Antalgic,Decreased Stride Length,Decreased Feet Clearance,Step-to Gait Factors Limiting Gait Function Factors Limiting Decreased Activity Tolerance,Decreased Strength, Gait Function Difficulty Following Directions,Limited Range of Motion ,Pain,Poor Balance,Poor Safety Awareness M5 PT-IP Objective Assessments Start: 03/09/25 15:39 Freq: NEEDED Status: Active Protocol: Document 03/13/25 11:39 DLM (Rec: 03/13/25 13:53 DLM Desktop) Orientation Orientation/Cognition Level of Alertness Confusional State Safety Awareness Decreased Safety Awareness Memory Description Short Term Impaired Comments he is pleasant and cooperative, he is tangential in conversation, pt attempting to joke with staff M6 PT-IP Treatment Start: 03/09/25 15:39 Freq: NEEDED Status: Active Protocol: Document 03/14/25 15:25 AB (Rec: 03/14/25 17:52 AB [id number]) Physical Therapy Treatment Education Education Provided Safety M7 PT-IP Assessment and Plan Start: 03/09/25 15:39 Freq: NEEDED Status: Active Protocol: Document 03/14/25 15:25 AB (Rec: 03/14/25 17:52 AB [id number]) PT Summary Assessment and Plan Potential Rehabilitation Fair Potential Summary Impairments Pain,ROM,Strength,Balance,Coordination,Sensation,Tone, Cognition,Bed Mobility,Transfers,Gait,Activity Tolerance Progress Towards Slow Progress due to Pain,Slow Progress due to Medical Goals Issues,Slow Progress due to Activity Tolerance,Slow Progress - Other Assessment Summary pt progressing with mobility and requiring max A for bed mobility, mod to max A for sit to stand and min A for ambulation using FWW. pt will benefit from SNF rehab to improve strength and mobility independence. Goals Bed Mobility Goal Standby Assistance Transfer Goal Minimal Assistance,Front Wheeled Walker Gait Goal Minimal Assistance,Front Wheel Walker Gait Distance 50 Other Goals transfers SBA using FWW and ambulation using FWW SBA ~ 100 ft Days to Meet Goals 10 Frequency of Treatment Frequency Of Once a Day Treatment Treatment Plan Physical Therapy Bed Mobility Training,Transfer Training,Gait Training, Treatment Plan Therapeutic Exercise,Balance Retraining,Discharge Planning,Hot or Cold Pack,Neuromuscular Re-ed, Coordination Retraining Weight Bearing Status Weight Bearing Weight Bear as Tolerated Status Allowed Weight RLE WBAT Bearing Amount ( enter % or #) (%) Recommendations To Nursing Amount of Assist 1 Person Assist Needed Discharge Recommendations PT Discharge SNF Rehab Recommendations Transportation Needs Wheelchair/Cabulance at Discharge - PT assist 1
--- NOTE | 2025-03-14 16:22 | OT.IP.TRT ---
Current Diagnoses Fracture of unspecified part of neck of right femur, initial encounter for closed fracture (03/09/25) Surgery Performed Operation Date: 03/09/25 11:00 Actual Procedures p Intramedullary Nailing Femur(Right) - Keith Daniel MD Occupational Therapy Treatment Note M2 OT-IP Current Condition Start: 03/11/25 12:07 Freq: Status: Active Protocol: Document 03/11/25 12:08 [facility] (Rec: 03/11/25 12:18 [facility] Desktop) Occupational Therapy Current Condition Current Condition Evaluation Date 03/11/25 Treatment Diagnosis Fall, R femur fx, S/P R ORIF Weight Bearing Status Weight Bearing Weight Bear as Tolerated Status M3 OT- IP Subjective and Pain Start: 03/11/25 12:07 Freq: Status: Active Protocol: Document 03/14/25 16:13 CCC (Rec: 03/14/25 16:22 [facility] Desktop) OT- Subjective Occupational Therapy Visit Type Visit Start Time 15:30 Visit Stop Time 16:05 Occupational Therapy Visit Comments Patient Comments Pt agreed to get up to walk in the room and to the sink for grooming needs. Patient/Caregiver To get better. Goals OT Pain Assessment Pain When Pain Assessed During Mobility Location Right Hip Pain Behaviors Facial Grimacing M4 OT- IP ADL's Start: 03/11/25 12:07 Freq: Status: Active Protocol: Document 03/14/25 16:13 CCC (Rec: 03/14/25 16:22 [facility] Desktop) OT [id number] Comments OT Self-Feeding Not at meal time. Comments OT ADL-Grooming General Evaluation Grooming Ability Standby Assistance Comments OT Grooming Comments CGA while standing at the sink for needs. OT ADL-Oral Care Comments Oral Care Comments Pt states to do after dinner. OT ADL-Dressing General Eval Lower Body Dressing Maximum Assistance Ability Areas Needing Socks Assistance OT ADL-Toileting General Evaluation Toileting Ability Total Assistance Areas Needing Empty Catheter or Colostomy Assistance Comments OT Toileting Ray Comments M5 OT- IP IADL's Start: 03/11/25 12:07 Freq: Status: Active Protocol: Document 03/11/25 12:08 CCC (Rec: 03/11/25 12:18 [facility] Desktop) OT-Instrumental Activities of Daily Living Home Safety Awareness Home Safety Comments Pt is a bit groggy still. Medication Management Medication Pt will benefit from assist. Management Comments Money Management Money Management Caregiver Provides Assistance Meal Preparation Meal Preparation Caregiver Provides Assist Corporate Executive Chef Corporate Executive Chef Caregiver Provides Assist M6 OT- IP Functional Cognition Start: 03/11/25 12:07 Freq: Status: Active Protocol: Document 03/14/25 16:13 [facility] (Rec: 03/14/25 16:22 [facility] Desktop) Cognitive Factors Limiting Selfcare Function Cognitive Ability Level of Alertness Alert,Confusional State Attention Span Capable of Focused Attention,Capable of Sustained Ability Attention,Unable to Sustain Attention Ability to Follow Able to Follow One Step Commands with Increased Time, Commands Able to Follow One Step Commands with Repetition Cognitive Comments Cognitive Assessment Pt able to follow commands. Pt doing better to follow Comments commands today as able to see therapist's mouth in the CAPR. Pt is pleasant and likes to joke around. M7 OT- IP Mobility and Balance Start: 03/11/25 12:07 Freq: Status: Active Protocol: Document 03/14/25 16:13 [facility] (Rec: 03/14/25 16:22 [facility] Desktop) OT- Bed Mobility Assessment Supine to Sit Supine to Sit Assist Maximum Assistance Sit to Supine Sit to Supine Assist Moderate Assistance OT-Transfer Assessment Sit to and From Stand Sit to and from Moderate Assistance,Maximum Assistance Stand Transfers Transfer Ability Minimal Assistance Technique Transfer Destination Bed Transfer Technique Stand Step Pivot Comments Mobility Comments Pt still tends to lean backwards while initially sitting up on the edge of the bed. MOD/MAX A x1 to stand to the FWW and JAMIN when walking in the room with the FWW. Pt doing better. OT- Balance Assessment Sitting Balance and Reactions Static Sitting Normal Balance Ability Dynamic Sitting Good Balance Ability Standing Balance and Reactions Static Standing Fair Balance Ability Dynamic Standing Fair Balance Ability M8 OT- IP Objective Assessments Start: 03/11/25 12:07 Freq: Status: Active Protocol: Document 03/11/25 12:08 [facility] (Rec: 03/11/25 12:18 [facility] Desktop) OT Gross Range of Motion Upper Extremity Range of Motion Assessment Within Functional Limits OT Strength Upper Extremity Strength Assessment Within Functional Limits OT- Coordination Assessment Upper Extremity Finger to Nose Test Within Functional Limits M9 OT- IP Assessment and Plan Start: 03/11/25 12:07 Freq: Status: Active Protocol: Document 03/14/25 16:13 [facility] (Rec: 03/14/25 16:22 [facility] Desktop) OT Summary Assessment and Plan Potential Rehabilitation Good Potential Analytic Complexity Moderate at Evaluation Summary OT Impairments Pain,Balance,Functional Cognition,Functional Mobility, Grooming,Dressing,Toileting,Bathing,Toilet Transfers, Shower Transfers,Activity Tolerance Progress Towards Progressing Toward Goals,Slow Progress due to Pain,Slow Goals Progress due to Cognition Assessment Summary Pt able to walk in the room and to the sink for ADL needs with the FWW. Pt to go to skilled rehab when medically stable. Goals Self-Feeding Goal Independent Grooming Goal Independent Dressing Goal Standby Assistance Toileting Goal Standby Assistance Bathing Goal Minimal Assistance Toilet Transfer Goal Independent Shower Transfer Goal Standby Assistance Days to Meet Goals 20 Frequency of Treatment Other frequency 5x/week Treatment Plan OT Treatment Plan ADL Training,Functional Cognition Training,Functional Mobility,Patient/Family Education,Discharge Planning Other Treatment Pt to be able to shower with MODA. Recommendations and Next Treatment Focus Discharge Recommendations OT Discharge SNF Rehab Recommendations Transportation Needs Wheelchair/Cabulance at Discharge
[2025-03-14 20:00] VITALS: BP 121/60; PULSE 96; RESP 18; TEMP 36.3; O2SAT 91
[2025-03-15] MEDS: SULFASALAZINE 500 MG 2000 EACH PO ×2 (09:27→21:39)
[2025-03-15] MEDS: ASPIRIN EC 81 MG TABLET PO ×2 (09:28→21:39)
[2025-03-15] MEDS: CITALOPRAM 10 MG TABLET 20 MG PO (09:28)
[2025-03-15] MEDS: REMDESIVIR 100 MG in SODIUM CHLORIDE 0.9% 250 ML 250 MG IV (09:28)
--- NOTE | 2025-03-15 15:05 | PT.IPTN ---
Current Diagnoses Fracture of unspecified part of neck of right femur, initial encounter for closed fracture (03/09/25) Surgery Performed Operation Date: 03/09/25 11:00 Actual Procedures p Intramedullary Nailing Femur(Right) - Keith Daniel MD Physical Therapy Treatment Note M2 PT-IP Current Condition Start: 03/09/25 15:39 Freq: NEEDED Status: Active Protocol: Document 03/09/25 15:39 KJ (Rec: 03/09/25 15:48 KJ [id number]) Physical Therapy Current Condition Current Condition Evaluation Date 03/09/25 Treatment Diagnosis impaired mobility Onset Date 03/08/25 M3 PT-IP Subjective Start: 03/09/25 15:39 Freq: NEEDED Status: Active Protocol: Document 03/15/25 15:05 AB (Rec: 03/15/25 16:20 AB Desktop) Subjective Physical Therapy Visit Type Type Treatment Note Visit Start Time 15:05 Visit Stop Time 15:40 Number of FEEDER OPERATOR Visits 0 Physical Therapy Visit Comments Patient Comments agreeable to do PT Therapy Pain Assessment Pain When Pain Assessed At Rest Location Lower Back Scale Used significant pain per pt Description Dull Pain Management Distraction,Modification of Treatment,Re-positioning Techniques M4 PT-IP Mobility and Gait Start: 03/09/25 15:39 Freq: NEEDED Status: Active Protocol: Document 03/15/25 15:05 AB (Rec: 03/15/25 16:20 AB Desktop) PT-Bed Mobility Assessment Supine to Sit Supine to Sit Maximum Assistance,Head of Bed Elevated,Bedrails Sit to Supine Sit to Supine Maximum Assistance,Bedrails PT-Transfer Assessment Sit to and From Stand Sit to and from Moderate Assistance,Total Assistance,Use of Upper Stand Extremities Equipment Transfer Assistive Gait Belt,Front Wheeled Walker Device Orthotic/Prosthetic No Devices or Brace: Comments Mobility Comments pt in bed and agreeable to do PT. pt continues to have slight confusion and needs cues for initiation of movement. completed supine to sit max A and max cues. (+) posterior trunk balance during scooting to EOB requiring max A for sitting balance. pt can be impulsive. sit to stand mod A and cues. pt ambulated in room using FWW ~ 60 ft min A and cues. pt requested to go back to bed. sit to supine max A and cues. positioned pt in bed. call light and table placed within reach. pt requested for pain meds. nurse informed. Gait Assessment Gait Gait Assistance Minimum Assistance Required: Distance (Feet) 60 Able to Maintain Yes Weight Bearing Status During Gait Assistive Devices Assistive Device Gait Belt,Front Wheeled Walker Orthotic/Prosthetic No Devices or Brace: Gait Deviations General Gait Pattern Decreased Stride Length,Decreased Feet Clearance,Step- to Gait Factors Limiting Gait Function Factors Limiting Decreased Activity Tolerance,Decreased Strength, Gait Function Difficulty Following Directions,Limited Range of Motion ,Pain,Poor Balance,Poor Safety Awareness M5 PT-IP Objective Assessments Start: 03/09/25 15:39 Freq: NEEDED Status: Active Protocol: Document 03/13/25 11:39 DLM (Rec: 03/13/25 13:53 DLM Desktop) Orientation Orientation/Cognition Level of Alertness Confusional State Safety Awareness Decreased Safety Awareness Memory Description Short Term Impaired Comments he is pleasant and cooperative, he is tangential in conversation, pt attempting to joke with staff M6 PT-IP Treatment Start: 03/09/25 15:39 Freq: NEEDED Status: Active Protocol: Document 03/15/25 15:05 AB (Rec: 03/15/25 16:20 AB Desktop) Physical Therapy Treatment Education Education Provided Safety M7 PT-IP Assessment and Plan Start: 03/09/25 15:39 Freq: NEEDED Status: Active Protocol: Document 03/15/25 15:05 AB (Rec: 03/15/25 16:20 AB Desktop) PT Summary Assessment and Plan Potential Rehabilitation Fair Potential Summary Impairments Pain,ROM,Strength,Balance,Coordination,Sensation, Cognition,Bed Mobility,Transfers,Gait,Activity Tolerance Progress Towards Progressing Toward Goals Goals Assessment Summary pt progressing with mobility and able to ambulate using FWW ~ 60 ft min A and cues. pt continues to have decrease safety awareness affecting mobility independence. pt will benefit from SNF rehab to improve overall strength and mobility independence. Goals Bed Mobility Goal Standby Assistance Transfer Goal Standby Assistance,Front Wheeled Walker Gait Goal Standby Assistance,Front Wheel Walker Gait Distance 100 Other Goals transfers SBA using FWW and ambulation using FWW SBA ~ 100 ft Days to Meet Goals 10 Frequency of Treatment Frequency Of Once a Day Treatment Treatment Plan Physical Therapy Bed Mobility Training,Transfer Training,Gait Training, Treatment Plan Therapeutic Exercise,Balance Retraining,Discharge Planning,Hot or Cold Pack,Neuromuscular Re-ed, Coordination Retraining Weight Bearing Status Weight Bearing Weight Bear as Tolerated Status Allowed Weight RLE WBAT Bearing Amount ( enter % or #) (%) Recommendations To Nursing Amount of Assist 1 Person Assist Needed Discharge Recommendations PT Discharge SNF Rehab Recommendations Transportation Needs Wheelchair/Cabulance at Discharge - PT assist 1
--- NOTE | 2025-03-15 15:39 | PM.PN.1 ---
Subjective Subjective Date Patient Seen: 03/15/25 Interval history: Chief complaint: Fall with hip fracture History of present illness: 03/09:85-year-old gentleman with history of depression and anxiety as well as ulcerative colitis and chronic low back pain who was admitted with a right femur fracture after a fall. He underwent operative repair with a closed reduction and intramedullary nailing on 03/09. 03/09: ORIF. Hospital course: 03/10: Some confusion. 03/12: Patient reports his pain is improved since surgery. He does report feeling a bit sleepy overall but denies any new complaints. He is looking forward to being able to get up and move again. He denies any chest pain or shortness a breath. He would like to stop using the morphine since it seems to make him hallucinate. The white count is 7.2 with a hemoglobin of 10.6. The potassium is 3.8 with a creatinine of 0.7. The sodium is 132. He has been hypoxic since arrival, needing between 2 and 3 L nasal cannula, possibly related to his COVID diagnosis. Remdesivir and dexamethasone will be started today. He and his say that he had been falling repeatedly at home shortly before this fracture, perhaps that was also a COVID complication? 03/13: He remains mildly hypoxic, currently on 2 L nasal cannula. This is day 2 of remdesivir/dexamethasone IV. His discharge to [facility] [place] for the indicated rehab postoperatively is now on scheduled for day 5 of remdesivir which would be 03/16. Peer to peer discussion regarding a [employer] insurance approval for rehab was accomplished today. Per physical therapy continues to need 2 person assist for save mobilization. 03/14: Overnight he had increased agitation likely related to the dexamethasone effects. He is still somewhat cognitively off this morning diverting from questions and answering with platitudes. We will be trialing him on Seroquel this evening. He is 94% on room air, now off all oxygen. The hemoglobin was postoperatively stable at 10.6 when last checked on 03/13. He is set up to discharge in 2 more days once the remdesivir is completed. 03/15: Review of systems: No fever or chills No chest pain palpitations shortness for breath No nausea vomiting diarrhea Physical exam: No acute distress No labored respirations Abdomen benign Good capillary refill in toes Moves all extremities A/P: 1. Postoperative intramedullary nailing of impacted right femoral neck fracture Patient is doing well thus far. Will continue pain management and mobilization. Physical Therapy reports continuing need for 2 person assist for transfers and mobilization. SNF level rehab is recommended. 2. Ulcerative colitis, stable. Continue Sulfasalazine home dose 3. Depression, stable. Continue citalopram 4. Normocytic anemia, stable. Mild with hemoglobin at 10.6 today 5. Hyperglycemia, stable. He has no history of diabetes. Likely a stress-induced elevation. 6. Covid Hypoxia, not on oxygen at home at baseline. Continues on 2 L nasal cannula. Added dexamethasone 6 mg IV Q 24 hours for 10 days and remdesivir for 5 days IV on 03/12. Seroquel at for dexamethasone related overnight agitation initiated on 03/14. 6. Metabolic encephalopathy, resolved. -trial of Seroquel after recurrent agitation on 03/14 PLAN: -minimize pain medications -physical therapy and increase activity. -[facility] in [place] when stable. Physical therapy reports continued need for 2 PA for mobilization and transfers. -Covid isolation. Due to hypoxia began remdesivir/dexamethasone on 03/12, to complete remdesivir on 03/16. -disposition is transportation already set up for transfer to SNF early on the morning of 03/16. Code status DNR Prophylaxis Orthopedic surgery has ordered aspirin b.i.d. Exam Vital Signs (past 8 hours): Fraction of Inspired Oxygen 36 SaO2/FiO2 Ratio 261 Oxygen Delivery Method Room Air Oxygen Flow Rate 0 Objective Labs 03/13/25 04:43 03/13/25 04:43 [facility] Medical History (Updated 03/09/25 @ 03:36 by Perry Epperson MD) Depression, unspecified Ulcerative colitis Frequent falls Social History household members: spouse Assessment & Plan Time-Based Coding :: [TOTAL MINUTES] spent with patient and on the chart (including review of chart, obtaining history, exam, reviewing outside data, placing orders, documenting exam and treatment plan, and counseling patient) on [DATE]. Quality VTE Deep Vein Thrombosis/Pulmonary Embolism Present on Admission: No
[2025-03-15 21:00] VITALS: BP 125/64; PULSE 98; RESP 18; TEMP 36.2; O2SAT 92
[2025-03-15] MEDS: SODIUM CHLORIDE 0.9% FLUSH 10 ML IV (21:39)
[2025-03-16 07:53] VITALS: BP 137/61; PULSE 91; RESP 26; TEMP 36.3; O2SAT 91
--- NOTE | 2025-03-16 07:54 | P.DS_ITS ---
History of Present Illness History of Present Illness Date Patient Seen: 03/16/25 Chief complaint: fall, right hip pain Narrative: [facility] complaint: Fall with hip fracture History of present illness: 03/09:85-year-old gentleman with history of depression and anxiety as well as ulcerative colitis and chronic low back pain who was admitted with a right femur fracture after a fall. He underwent operative repair with a closed reduction and intramedullary nailing on 03/09. 03/09: ORIF. Hospital course: 03/10: Some confusion. 03/12: Patient reports his pain is improved since surgery. He does report feeling a bit sleepy overall but denies any new complaints. He is looking forward to being able to get up and move again. He denies any chest pain or shortness a breath. He would like to stop using the morphine since it seems to make him hallucinate. The white count is 7.2 with a hemoglobin of 10.6. The potassium is 3.8 with a creatinine of 0.7. The sodium is 132. He has been hypoxic since arrival, needing between 2 and 3 L nasal cannula, possibly related to his COVID diagnosis. Remdesivir and dexamethasone will be started today. He and his say that he had been falling repeatedly at home shortly before this fracture, perhaps that was also a COVID complication? 03/13: He remains mildly hypoxic, currently on 2 L nasal cannula. This is day 2 of remdesivir/dexamethasone IV. His discharge to [facility] for the indicated rehab postoperatively is now on scheduled for day 5 of remdesivir which would be 03/16. Peer to peer discussion regarding a [employer] insurance approval for rehab was accomplished today. Per physical therapy continues to need 2 person assist for save mobilization. 03/14: Overnight he had increased agitation likely related to the dexamethasone effects. He is still somewhat cognitively off this morning diverting from questions and answering with platitudes. We will be trialing him on Seroquel this evening. He is 94% on room air, now off all oxygen. The hemoglobin was postoperatively stable at 10.6 when last checked on 03/13. He is set up to discharge in 2 more days once the remdesivir is completed. 03/15: No symptoms from COVID 03/16: Hip was a little sore and having good interaction with physical therapy does veer a dexamethasone or completed Review of systems: No fever or chills No chest pain palpitations shortness for breath No nausea vomiting diarrhea Physical exam: No acute distress No labored respirations Abdomen benign Good capillary refill in toes Moves all extremities A/P: 1. Postoperative intramedullary nailing of impacted right femoral neck fracture Patient is doing well thus far. Will continue pain management and mobilization. Physical Therapy reports continuing need for 2 person assist for transfers and mobilization. SNF level rehab is recommended. 2. Ulcerative colitis, stable. Continue Sulfasalazine home dose 3. Depression, stable. Continue citalopram 4. Normocytic anemia, stable. Mild with hemoglobin at 10.6 today 5. Hyperglycemia, stable. He has no history of diabetes. Likely a stress-induced elevation. 6. Covid Hypoxia, not on oxygen at home at baseline. Continues on 2 L nasal cannula. Added dexamethasone 6 mg IV Q 24 hours for 10 days and remdesivir for 5 days IV on 03/12. Seroquel at for dexamethasone related overnight agitation initiated on 03/14. 6. Metabolic encephalopathy, resolved. -trial of Seroquel after recurrent agitation on 03/14 no further disturbances PLAN: -minimize pain medications -physical therapy and increase activity. -[facility] in [place] when stable. Physical therapy reports continued need for 2 PA for mobilization and transfers. -Covid isolation. Due to hypoxia began remdesivir/dexamethasone on 03/12, completed remdesivir on 03/16. -disposition is transportation already set up for transfer to SNF early on the morning of 03/16. Code status DNR Prophylaxis Orthopedic surgery has ordered aspirin b.i.d. Time based billin minutes were involved in the management of this patient for discharge including [id number] evaluation in the patient's presence discussion of his care plan review of current labs vital signs discharge medications and discussion with discharge planning Discharge Providers Provider Date of admission: 03/09/25 03:34 Discharge Date: 03/16/25 Primary care physician: Jose A Almonte DO Consults: 03/09/25 03:23 Consult to Occupational Therapy Evaluate & Treat Comment: Physician Instructions: Evaluate and treat Consult to Physical Therapy Evaluate & Treat Comment: Physician Instructions: Evaluate and Treat 03/09/25 13:28 Consult to Discharge Planning Routine Comment: Consult to Occupational Therapy Evaluate & Treat Comment: Physician Instructions: Evaluate and treat Consult to Physical Therapy Evaluate & Treat Comment: Physician Instructions: Evaluate and Treat 03/09/25 18:35 Consult to Pharmacy Routine Comment: high fall risk 03/10/25 07:48 Consult to [facility] Routine Comment: Consulting Provider: [facility] Reason For Exam: Hip Reason for consultation: Hip Has provider been notified: Yes 03/14/25 18:13 Consult to Pharmacy Routine Comment: high fall risk Discharge provider: Abraham Vieyra MD Exam Vital Signs (past 8 hours): Fraction of Inspired Oxygen 36 SaO2/FiO2 Ratio 261 Oxygen Delivery Method Room Air Oxygen Flow Rate 0 Objective Labs 03/13/25 04:43 03/13/25 04:43 [facility] Medical History (Updated 03/09/25 @ 03:36 by Perry Epperson MD) Depression, unspecified Ulcerative colitis Frequent falls Social History household members: spouse Discharge Plan Discharge Plan Patient Disposition: [facility] Other facility: [facility] in [place] Discharge orders & Medications Prescriptions: New quetiapine 25 mg Tablet 25 mg PO BEDTIME Qty: 1 0RF acetaminophen 325 mg Tablet 650 mg PO Q6H PRN (Reason: Fever/Mild Pain (1-3)) Qty: 1 0RF polyethylene glycol 3350 [Gavilax] 17 gram Powder In Packet 17 gm PO DAILY Qty: 1 0RF hydrocodone-acetaminophen 5-325 mg Tablet 1 tab PO Q4H PRN (Reason: Pain, Moderate (4-6)) Qty: 12 0RF ondansetron 4 mg Tablet,Disintegrating 4 mg PO Q4HR PRN (Reason: Nausea And Vomiting) Qty: 1 0RF Continued ascorbate calcium (vitamin C) 500 mg tablet 500 mg PO DAILY folic acid 800 mcg tablet 0.8 mg PO DAILY cholecalciferol (vitamin D3) 50 mcg (2,000 unit) capsule 50 mcg PO DAILY Calcium & Vitamin D3 600mg PO DAILY Imodium AD 2mg PO DAILY Vitamin B12 1000mcg PO DAILY adult multivitamin PO DAILY flax seed oil PO DAILY citalopram 20 mg tablet 20 mg PO DAILY Qty: 100 3RF sulfasalazine 500 mg tablet 2,000 mg PO BID Qty: 400 3RF Discontinued ranitidine HCl 150 mg tablet PO DAILY PRN (Reason: allergic symptoms) Follow up/Referrals: Jose A Almonte DO [Primary Care Provider, Family Practice] Visit Report/Discharge Packet Stand Alone Forms: Patient Portal/API Discharge Data Primary Care Provider: Jose A Almonte Quality VTE Deep Vein Thrombosis/Pulmonary Embolism Present on Admission: No
[2025-03-16] MEDS: CITALOPRAM 10 MG TABLET 20 MG PO (09:05)
[2025-03-16] MEDS: ASPIRIN EC 81 MG TABLET PO ×2 (09:05→21:15)
[2025-03-16] MEDS: REMDESIVIR 100 MG in SODIUM CHLORIDE 0.9% 250 ML 250 MG IV (09:05)
[2025-03-16] MEDS: SULFASALAZINE 500 MG 2000 EACH PO ×2 (09:06→21:15)
[2025-03-16] MEDS: SODIUM CHLORIDE 0.9% FLUSH 10 ML IV ×2 (09:06→21:15)
--- NOTE | 2025-03-16 09:22 | CM.DPNOTE ---
Addendum entered by LUCY Navarrete 03/16/25 15:30: from [employer] [facility], spouse already paid. please reschedule transport with them. Also, plan to send the late cancelation fee of about $50 to due to already having a regional otr company driver dispatched. SL Addendum entered by LUCY Navarrete 03/16/25 14:35: From Erika at [facility], they do not have a [employer] auth for pt. [employer] auth to be resubmitted for today. also unsure situation on private room due to COVID pos. G[employer] immediately called [employer] to cancel transport. left voicemail. GOLD BLOWER updated provider/nurse/relief charge nurse. GOLD BLOWER met with spouse and pt in room. updated on canceled dc. spouse and pt upset. GOLD BLOWER explained situation to best of ability. [employer] SNF auth pending. anticipate dc to [facility] once secured. will need to secure new transport. will continue to follow closely for DCP coordination LUCY Navarrete Original Note: DCP note GOLD BLOWER reviewed EMR per previous CM notes, arranged for DC today to [facility] slat pickler at 10am via [employer] GOLD BLOWER LVM wit [facility]. GOLD BLOWER updated RN, gave report number, updated APPLICATION PROGRAMMER ANALYST. per previous CM notes, spouse already made aware of plan and in agreement. GOLD BLOWER lvm with spouse response pending. G[employer] BLOWER faxed PASRR, meds, script, and dc summary to [facility]. placed in red folder. P: dc today to [facility] via [facility] [employer] [facility] at 10am. CM team will continue to follow closely for DCP Coordination LUCY Navarrete
--- NOTE | 2025-03-16 10:34 | PC.NURSE ---
Patient was going to be discharged to snf in [place] but this has been cancelled. Patient and his are needy and patient seems to be more anxious when she is here. He keeps sliding himself down in the bed and staff will readjust him shortly. is upset because of cancelled discharge.
--- NOTE | 2025-03-16 15:00 | PT.IPTN ---
Current Diagnoses Fracture of unspecified part of neck of right femur, initial encounter for closed fracture (03/09/25) Surgery Performed Operation Date: 03/09/25 11:00 Actual Procedures p Intramedullary Nailing Femur(Right) - Keith Daniel MD Physical Therapy Treatment Note M2 PT-IP Current Condition Start: 03/09/25 15:39 Freq: NEEDED Status: Active Protocol: Document 03/09/25 15:39 KJ (Rec: 03/09/25 15:48 KJ [id number]) Physical Therapy Current Condition Current Condition Evaluation Date 03/09/25 Treatment Diagnosis impaired mobility Onset Date 03/08/25 M3 PT-IP Subjective Start: 03/09/25 15:39 Freq: NEEDED Status: Active Protocol: Document 03/16/25 15:00 DLM (Rec: 03/16/25 16:00 DLM Desktop) Subjective Physical Therapy Visit Type Type Treatment Note Visit Start Time 14:30 Visit Stop Time 15:00 Notes 30 min Number of IT SECURITY CONSULTING DIRECTOR Visits 0 Physical Therapy Visit Comments Patient Comments He is eager to work with therapy. Patient Goals Be able to walk better and go home Therapy Pain Assessment Pain When Pain Assessed During Mobility Pain Present Pain Present Pain Reported Location Right Hip Scale Used pt unable to rate Description Acute Pain Behaviors Guarding,Wincing Pain Management Elevation,Modification of Treatment,Re-positioning Techniques M4 PT-IP Mobility and Gait Start: 03/09/25 15:39 Freq: NEEDED Status: Active Protocol: Document 03/16/25 15:00 DLM (Rec: 03/16/25 16:00 DLM Desktop) PT-Bed Mobility Assessment Supine to Sit Supine to Sit Minimal Assistance,1 Person Assistance,Bedrails Scooting Scooting to Edge of Minimal Assistance Bed PT-Transfer Assessment Sit to and From Stand Sit to and from Minimal Assistance,1 Person Assistance,Use of Upper Stand Extremities Equipment Transfer Assistive Gait Belt,Front Wheeled Walker Device Transfers Transfer Destination Bed,Chair Transfer Technique Stand Step Pivot Transfer Ability Level of Assist Minimal Assistance,1 Person Assistance,Use of Upper Extremities Comments Mobility Comments He needs cuing to push up with UE's and reach back with UE's to control descent into sitting. Gait Assessment Gait Gait Assistance Minimum Assistance Required: Distance (Feet) 20 Assistive Devices Assistive Device Gait Belt,Front Wheeled Walker Gait Deviations General Gait Pattern Decreased Stride Length,Decreased Feet Clearance,Step- to Gait Factors Limiting Gait Function Factors Limiting Decreased Activity Tolerance,Decreased Strength, Gait Function Difficulty Following Directions,Limited Range of Motion ,Pain,Poor Balance,Poor Safety Awareness Comments Gait Comments He needs frequent verbal cues to go slow and use his UE 's on the FWW to assist with right LE pain, no buckling right LE. He ambulated 2 x 10 feet with seated rest then another 20 feet. Pt left up in recliner with feet elevated, call light close and chair alarm in place at the end of this visit . M5 PT-IP Objective Assessments Start: 03/09/25 15:39 Freq: NEEDED Status: Active Protocol: Document 03/13/25 11:39 DLM (Rec: 03/13/25 13:53 DLM Desktop) Orientation Orientation/Cognition Level of Alertness [place] Safety Awareness Decreased Safety Awareness Memory Description Short Term Impaired Comments he is pleasant and cooperative, he is tangential in conversation, pt attempting to joke with staff M6 PT-IP Treatment Start: 03/09/25 15:39 Freq: NEEDED Status: Active Protocol: Document 03/16/25 15:00 DLM (Rec: 03/16/25 16:00 DLM Desktop) Physical Therapy Treatment Exercises Exercises Ankle Pumps,Heel Slides,Supine Hip Abduction,Short Arc Quads Education Education Provided Safety Other Treatments Other Treatment exercises on right LE with assistance x 10 reps each Performed No family present this therapy visit. They visited earlier today. M7 PT-IP Assessment and Plan Start: 03/09/25 15:39 Freq: NEEDED Status: Active Protocol: Document 03/16/25 15:00 DLM (Rec: 03/16/25 16:00 DLM Desktop) PT Summary Assessment and Plan Summary Impairments Pain,ROM,Strength,Balance,Coordination,Sensation, Cognition,Bed Mobility,Transfers,Gait,Activity Tolerance Progress Towards Progressing Toward Goals Goals Assessment Summary Dayron is alert and shows good participation in Physical Therapy. He continues to have pain in right hip area with activity. He does well with verbal cues on how to manage his pain but forgets these strategies from prior therapy visits. His quality of gait continues to slowly improve. He needed less assist to get out of bed today. He continues to be cognitively impaired. Continue to recommend SNF rehab at discharge to assist with his functional recovery including progression of his gait distances. Pt voices his desire to get right leg stronger. Goals Bed Mobility Goal Standby Assistance Transfer Goal Standby Assistance,Front Wheeled Walker Gait Goal Standby Assistance,Front Wheel Walker Gait Distance 100 Other Goals transfers SBA using FWW and ambulation using FWW SBA ~ 100 ft Days to Meet Goals 10 Frequency of Treatment Frequency Of Once a Day Treatment Treatment Plan Physical Therapy Bed Mobility Training,Transfer Training,Gait Training, Treatment Plan Therapeutic Exercise,Balance Retraining,Discharge Planning,Hot or Cold Pack,Neuromuscular Re-ed, Coordination Retraining Weight Bearing Status Weight Bearing Weight Bear as Tolerated Status Allowed Weight RLE WBAT, s/p ORIF Bearing Amount ( enter % or #) (%) Recommendations To Nursing Amount of Assist 1 Person Assist Needed Discharge Recommendations PT Discharge SNF Rehab Recommendations Transportation Needs Wheelchair/Cabulance at Discharge - PT assist 1
[2025-03-16 20:43] VITALS: BP 115/61; PULSE 108; RESP 20; TEMP 36.1; O2SAT 95
[2025-03-17] MEDS: SULFASALAZINE 500 MG 2000 EACH PO (08:18)
[2025-03-17] MEDS: CITALOPRAM 10 MG TABLET 20 MG PO (08:18)
[2025-03-17] MEDS: ASPIRIN EC 81 MG TABLET PO (08:18)
[2025-03-17] MEDS: SODIUM CHLORIDE 0.9% FLUSH 10 ML IV (08:18)
--- NOTE | 2025-03-17 08:34 | PC.NURSE ---
Addendum entered by Nia Mercado RN 03/17/25 12:42: Patients giles catheter out, he has voided and will be discharging home at 1340 with home health. Voices no complaints of pain. Original Note: Patient and arguing in room, upset about not being transferred to the rehabilitation center, discharge planning has talked to both patient and several times about the plan for him, they do not seem to understand. Patient lung sounds clear upon ausculation. Patient has an intermittant cough but is on room air. Incisions to r.hip with dressings x2 cdi. Resting comfortably.
--- NOTE | 2025-03-17 09:15 | PM.DS.1 ---
History of Present Illness History of Present Illness Date Patient Seen: 03/17/25 Chief complaint: fall, right hip pain Narrative: Chief complaint: Fall with hip fracture History of present illness: 03/09:85-year-old gentleman with history of depression and anxiety as well as ulcerative colitis and chronic low back pain who was admitted with a right femur fracture after a fall. He underwent operative repair with a closed reduction and intramedullary nailing on 03/09. 03/09: ORIF. Hospital course: 03/10: Some confusion. 03/12: Patient reports his pain is improved since surgery. He does report feeling a bit sleepy overall but denies any new complaints. He is looking forward to being able to get up and move again. He denies any chest pain or shortness a breath. He would like to stop using the morphine since it seems to make him hallucinate. The white count is 7.2 with a hemoglobin of 10.6. The potassium is 3.8 with a creatinine of 0.7. The sodium is 132. He has been hypoxic since arrival, needing between 2 and 3 L nasal cannula, possibly related to his COVID diagnosis. Remdesivir and dexamethasone will be started today. He and his say that he had been falling repeatedly at home shortly before this fracture, perhaps that was also a COVID complication? 03/13: He remains mildly hypoxic, currently on 2 L nasal cannula. This is day 2 of remdesivir/dexamethasone IV. His discharge to [facility] for the indicated rehab postoperatively is now on scheduled for day 5 of remdesivir which would be 03/16. Peer to peer discussion regarding a [employer] insurance approval for rehab was accomplished today. Per physical therapy continues to need 2 person assist for save mobilization. 03/14: Overnight he had increased agitation likely related to the dexamethasone effects. He is still somewhat cognitively off this morning diverting from questions and answering with platitudes. We will be trialing him on Seroquel this evening. He is 94% on room air, now off all oxygen. The hemoglobin was postoperatively stable at 10.6 when last checked on 03/13. He is set up to discharge in 2 more days once the remdesivir is completed. 03/15: No symptoms from COVID 03/16: Hip was a little sore and having good interaction with physical therapy does veer a dexamethasone or completed 03/17: No changes awaiting for insurance approval at rehab level Review of systems: No fever or chills No chest pain palpitations shortness for breath No nausea vomiting diarrhea Physical exam: No acute distress No labored respirations Abdomen benign Good capillary refill in toes Moves all extremities A/P: 1. Postoperative intramedullary nailing of impacted right femoral neck fracture Patient is doing well thus far. Will continue pain management and mobilization. Physical Therapy reports continuing need for 2 person assist for transfers and mobilization. SNF level rehab is recommended. 2. Ulcerative colitis, stable. Continue Sulfasalazine home dose 3. Depression, stable. Continue citalopram 4. Normocytic anemia, stable. Mild with hemoglobin at 10.6 today 5. Hyperglycemia, stable. He has no history of diabetes. Likely a stress-induced elevation. 6. Covid Hypoxia, not on oxygen at home at baseline. Continues on 2 L nasal cannula. Added dexamethasone 6 mg IV Q 24 hours for 10 days and remdesivir for 5 days IV on 03/12. Seroquel at for dexamethasone related overnight agitation initiated on 03/14. 6. Metabolic encephalopathy, resolved. -trial of Seroquel after recurrent agitation on 03/14 no further disturbances PLAN: -minimize pain medications -physical therapy and increase activity. -[facility] in [place] when stable. Physical therapy reports continued need for 2 PA for mobilization and transfers. -Covid isolation. Due to hypoxia began remdesivir/dexamethasone on 03/12, completed remdesivir on 03/16. -disposition is transportation already set up for transfer to SNF early on the morning of 03/16. Code status DNR Prophylaxis Orthopedic surgery has ordered aspirin b.i.d. Disposition awaiting insurance approval at rehab level Time based billin minutes were involved in the management of this patient for discharge including [id number] evaluation in the patient's presence discussion of his care plan review of current labs vital signs discharge medications and discussion with discharge planning Discharge Providers Provider Date of admission: 03/09/25 03:34 Discharge Date: 03/17/25 Primary care physician: Jose A Almonte DO Consults: 03/09/25 03:23 Consult to Occupational Therapy Evaluate & Treat Comment: Physician Instructions: Evaluate and treat Consult to Physical Therapy Evaluate & Treat Comment: Physician Instructions: Evaluate and Treat 03/09/25 13:28 Consult to Discharge Planning Routine Comment: Consult to Occupational Therapy Evaluate & Treat Comment: Physician Instructions: Evaluate and treat Consult to Physical Therapy Evaluate & Treat Comment: Physician Instructions: Evaluate and Treat 03/09/25 18:35 Consult to Pharmacy Routine Comment: high fall risk 03/10/25 07:48 Consult to [facility] Routine Comment: Consulting Provider: [facility] Reason For Exam: Hip Reason for consultation: Hip Has provider been notified: Yes 03/14/25 18:13 Consult to Pharmacy Routine Comment: high fall risk Discharge provider: Abraham Vieyra MD Exam Vital Signs (past 8 hours): Fraction of Inspired Oxygen 36 SaO2/FiO2 Ratio 261 Oxygen Delivery Method Room Air Oxygen Flow Rate 0 Objective Labs 03/13/25 04:43 03/13/25 04:43 [facility] Medical History (Updated 03/09/25 @ 03:36 by Perry Epperson MD) Depression, unspecified Ulcerative colitis Frequent falls Social History household members: spouse Discharge Plan Discharge Plan Patient Disposition: SNF Other facility: [facility] in [place] Discharge orders & Medications Prescriptions: New quetiapine 25 mg Tablet 25 mg PO BEDTIME Qty: 1 0RF acetaminophen 325 mg Tablet 650 mg PO Q6H PRN (Reason: Fever/Mild Pain (1-3)) Qty: 1 0RF polyethylene glycol 3350 [Gavilax] 17 gram Powder In Packet 17 gm PO DAILY Qty: 1 0RF hydrocodone-acetaminophen 5-325 mg Tablet 1 tab PO Q4H PRN (Reason: Pain, Moderate (4-6)) Qty: 12 0RF ondansetron 4 mg Tablet,Disintegrating 4 mg PO Q4HR PRN (Reason: Nausea And Vomiting) Qty: 1 0RF Continued ascorbate calcium (vitamin C) 500 mg tablet 500 mg PO DAILY folic acid 800 mcg tablet 0.8 mg PO DAILY cholecalciferol (vitamin D3) 50 mcg (2,000 unit) capsule 50 mcg PO DAILY Calcium & Vitamin D3 600mg PO DAILY Imodium AD 2mg PO DAILY Vitamin B12 1000mcg PO DAILY adult multivitamin PO DAILY flax seed oil PO DAILY citalopram 20 mg tablet 20 mg PO DAILY Qty: 100 3RF sulfasalazine 500 mg tablet 2,000 mg PO BID Qty: 400 3RF Discontinued ranitidine HCl 150 mg tablet PO DAILY PRN (Reason: allergic symptoms) Follow up/Referrals: Jose A Almonte DO [Primary Care Provider, Family Practice] Visit Report/Discharge Packet Stand Alone Forms: Patient Portal/API Discharge Data Primary Care Provider: Jose A Almonte Quality VTE Deep Vein Thrombosis/Pulmonary Embolism Present on Admission: No
--- NOTE | 2025-03-17 11:14 | CM.DPC ---
DCP Cont. Reviewed EMR and team rounds for pt's status updates. [facility] declines pt now due to not being at least 10-days out since he was dx with Covid. No auth. Pt/ have opted to go home rather than to rehab. Called [facility] and sent clinicals/orders. [employer] [facility] will pick pt up today at 1:40pm. Provided the contact info for [employer] for DME, and a walker will be issued by PT prior to his discharge. No further CM d/c needs identified at this time.
--- NOTE | 2025-03-17 15:55 | CM.DPNOTE ---
PILING SETTER received angry call from spouse/neighbors about pt's discharge. pt gave this PILING SETTER permission via phone to speak with neighbor (Steven or Juan?) Per neighbor, frustrated that pt went home and not to SNF. report frustration they were not told that pt cannot go from home to SNF at al. report they do not feel like pt is safe. report they were not given a walker (our documentation says that pt was to be given a walker). report that spouse was not appropriately told how to care for pt at home. PILING SETTER answered questions to best of ability. report they do not believe HH is enough. Neighbor reported that they were likely to come back to the ED for SNF placement. per our CM notes, pt decided he wished to go home earlier today. see other CM notes for more. PILING SETTER updated ED PILING SETTER on potential ED visit from pt. Will continue to follow as needed. LUCY Navarrete
== END 2025-03-17 13:30 | disposition home health service (06) | DRG 480 ==
LOC: ED 03-09 00:16 → AC 03-09 03:35
PROVIDERS: Hospitalist; Internal Medicine; Orthopaedic Surgery Adult Reconstructive Orthopaedic Surgery; Pharmacist Pharmacist Clinician (PhC)/ Clinical Pharmacy Specialist; Admitting Provider Internal Medicine; Emergency Provider Emergency Medicine; PCP Family Medicine; Referring Provider Emergency Medicine; Visit Provider Internal Medicine
PROC: 0QS606Z Reposition Right Upper Femur with Intramedullary Internal Fixation Device, Open Approach (ICD-10-PCS; CPT 27245; principal; 2025-03-09 11:00)
DX: S72.001A Fracture of unspecified part of neck of right femur, initial encounter for closed fracture (principal); G93.41 Metabolic encephalopathy; U07.1 COVID-19; K51.90 Ulcerative colitis, unspecified, without complications; R29.6 Repeated falls; G89.29 Other chronic pain; M54.50 Low back pain, unspecified; F32.A Depression, unspecified; R73.9 Hyperglycemia, unspecified; R09.02 Hypoxemia; D64.9 Anemia, unspecified; W06.XXXA Fall from bed, initial encounter; Z66 Do not resuscitate
CPT/HCPCS: 27235; 36415; 70450; 71045; 73502; 74176; 76000; 80048; 80053; 81001; 81003; 81015; 83605; 83690; 83880; 84145; 85025; 85610; 85730; 87040; 87086; 87637; 93005; 93010; 94760; 94762; 96361; 96372; 96374; 97110; 97116; 97161; 97166; 97530; 97535; 99223; 99284; 99291; C1713; J0131; J0689; J0690; J1100; J1171; J1200; J1630; J1885; J2272; J2405; J2704; J3010

== ENCOUNTER 2025-05-20 10:03 | Emergency (ER) | payer OTHER, SELFPAY ==
[2025-03-09 03:51] VITALS: BMI 25.7
[2025-05-20 10:20] VITALS: BP 112/68; PULSE 104; RESP 16; TEMP 36.3; O2SAT 96; BMI 26.5
--- NOTE | 2025-05-20 10:28 | DI.RAD.S_ITS ---
PROCEDURE: XR HIP W PEL IF DONE RT 2V INDICATIONS: 03/09 surgery right hip, fall two nights ago, groin px TECHNIQUE: AP view of the pelvis. Two views of right hip. COMPARISON: [facility], [facility], ORTHO-XR HIP RT 2V, 04/22/2025, 9:44. [facility], CR, XR HIP W PEL RT 2V, 03/09/2025, 11:46. FINDINGS: Intramedullary nail fixation of right femoral neck fracture. No hardware failure. No new fracture. Fracture healing is incomplete. Mild bilateral hip osteoarthritis. Degenerative changes of the sacroiliac joints and lumbar spine. IMPRESSION: No acute bony abnormality. Dictated by: Last Chairez M.D. on 05/20/2025 at 11:00 Approved by: Last Chairez M.D. on 05/20/2025 at 11:02
--- NOTE | 2025-05-20 12:09 | PC.NURSE ---
Presents with ice on right hip, states he fell two nights ago, striking back on toliet. No bruise noted but states he did have one. Patient states his groin as been hurting since surgery, and right leg is weak. Unable to start PT yet due to scheduling. Patient reports out of pain medications was taking tramodol and hydrocodone before that.
--- NOTE | 2025-05-20 13:00 | ED.LOWEXIN ---
HPI - Extremity Injury (Lower) <Devon Morales PA-C - Last Filed: 05/20/25 18:07> General Chief Complaint: Extremity Injury, Lower Stated Complaint: groin px after surgery Time Seen by Provider: 05/20/25 12:03 Source: patient Mode of arrival: Wheelchair History of Present Illness HPI Narrative: 85-year-old male status post right hip repair on 03/09 presents to the ED for ongoing right groin and hip pain. Patient also had a fall 2 nights ago, which has caused increased pain. Patient sees PCP Dr. Almonte who has been managing his pain with hydrocodone. Patient requested more pain meds, and Dr. Almonte sent him to the ED today for further evaluation. Patient denies numbness, tingling, weakness. Related Data Home Medications ?Medication ?Instructions ?Recorded ?Confirmed Calcium & Vitamin D3 600mg PO DAILY 02/10/25 04/22/25 Imodium AD 2mg PO DAILY 02/10/25 04/22/25 Vitamin B12 1000mcg PO DAILY 02/10/25 04/22/25 adult multivitamin PO DAILY 02/10/25 04/22/25 ascorbate calcium (vitamin C) 500 500 mg PO DAILY 02/10/25 04/22/25 mg tablet cholecalciferol (vitamin D3) 50 50 mcg PO DAILY 02/10/25 04/22/25 mcg (2,000 unit) capsule flax seed oil PO DAILY 02/10/25 04/22/25 folic acid 800 mcg tablet 0.8 mg PO DAILY 02/10/25 04/22/25 Previous Rx's ?Medication ?Instructions ?Recorded citalopram 20 mg tablet 20 mg PO DAILY #100 tabs 02/10/25 sulfasalazine 500 mg tablet 2,000 mg (4 x 500 mg) PO BID #400 02/10/25 tabs acetaminophen 325 mg tablet 650 mg (2 x 325 mg) PO Q6H PRN 03/16/25 Fever/Mild Pain (1-3) #1 tab ondansetron 4 mg disintegrating 4 mg PO Q4HR PRN Nausea And 03/16/25 tablet Vomiting #1 tab polyethylene glycol 3350 17 gram 17 gm PO DAILY #1 ea 03/16/25 oral powder packet (Gavilax) hydrocodone 5 mg-acetaminophen 325 1 tab PO Q4H PRN Pain, Moderate 04/14/25 mg tablet (4-6) #20 tabs tramadol 50 mg tablet 50 mg PO Q8H PRN pain #30 tabs 05/20/25 Allergies Allergy/AdvReac Type Severity Reaction Status Date / Time No Known Drug Allergies Allergy Verified 05/20/25 10:24 Review of Systems <Devon Morales PA-C - Last Filed: 05/20/25 18:07> Constitutional Constitutional: Denies chills, Denies fatigue, Denies fever(s), Denies frequent falls, Denies lethargy and Denies weakness Eyes Eyes: Denies change in vision, Denies eye discharge, Denies irritation and Denies loss of vision ENT Ears, Nose, Mouth, and Throat: Denies change in voice, Denies dizziness, Denies neck pain, Denies sore throat and Denies throat swelling Cardiovascular Cardiovascular: Denies chest pain, Denies irregular heart rhythm, Denies lightheadedness, Denies palpitations, Denies dyspnea, Denies dyspnea on exertion and Denies orthopnea Respiratory Respiratory: Denies cough, Denies dyspnea, Denies dyspnea on exertion and Denies wheezing Gastrointestinal Gastrointestinal: Denies abdominal pain, Denies change in bowel habits, Denies diarrhea, Denies nausea and Denies vomiting Musculoskeletal Musculoskeletal: Denies neck pain and Denies numbness Comments: R hip, groin pain Integumentary/Breasts Skin/Breast: Denies pruritus, Denies erythema, Denies rash and Denies wounds Neurologic Neurologic: Denies behavioral changes, Denies confusion, Denies dizziness, Denies frequent falls, Denies loss of vision, Denies numbness and Denies weakness Psychiatric Psychiatric: Denies anxiety, Denies behavioral changes, Denies confusion, Denies depression, Denies homicidal ideation and Denies suicidal ideation Endocrine Endocrine: Denies fatigue, Denies flushing and Denies palpitations Hematologic/Lymphatic Hematologic/Lymphatic: Denies easy bruising Allergic/Immunologic Allergic/Immunologic: Denies urticaria, Denies throat swelling and Denies wheezing Patient History <Devon Morales PA-C - Last Filed: 05/20/25 18:07> Medical History Depression, unspecified Ulcerative colitis Frequent falls Social History household members: spouse alcohol intake frequency: 0-2 drinks per day Alcohol type: wine Exam <Devon Morales PA-C - Last Filed: 05/20/25 18:07> Narrative Exam Narrative: Const General:?cooperative, healthy appearing and comfortable [facility] Head:?normal to inspection Ears:?hearing grossly normal bilaterally Nose:?external nose normal Face and sinus:?normal facial exam and sinuses nontender Mouth:?oral mucosae normal Throat:?posterior oropharynx normal Eyes General:?appearance normal, both eyes and all related structures Neck Neck:?normal visual inspection and no lymphadenopathy noted Resp Effort & Inspection:?normal respiratory effort Auscultation:?clear to auscultation bilaterally Cardio Rate:?regular rate Rhythm:?regular rhythm Musculoskeletal No deformities, bruising noted on exam. Neurovascularly intact. Neuro General:?patient alert, patient awake and patient oriented x3 Initial Vital Signs Initial Vital Signs: Vital Signs Temperature 97.4 F L 05/20/25 10:20 Pulse Rate 104 H 05/20/25 10:20 Respiratory Rate 16 05/20/25 10:20 Blood Pressure 112/68 05/20/25 10:20 Pulse Oximetry 96 05/20/25 10:20 Oxygen Delivery Method Room Air 05/20/25 10:20 <Hank Weiss MD - Last Filed: 05/26/25 08:57> Initial Vital Signs Initial Vital Signs: Vital Signs Temperature 97.4 F L 05/20/25 10:20 Pulse Rate 104 H 05/20/25 10:20 Respiratory Rate 16 05/20/25 10:20 Blood Pressure 112/68 05/20/25 10:20 Pulse Oximetry 96 05/20/25 10:20 Oxygen Delivery Method Room Air 05/20/25 10:20 Course <Devon Morales PA-C - Last Filed: 05/20/25 18:07> Orders Ordered: ED Orders 05/20/25 10:28 XR hip w pel RT 2V Stat Vital Signs Vital signs: Vital Signs - 8 hr 05/20/25 10:20 Temperature 97.4 F L Pulse Rate 104 H Respiratory Rate 16 Blood Pressure 112/68 Pulse Oximetry 96 Oxygen Delivery Method Room Air <Hank Weiss MD - Last Filed: 05/26/25 08:57> Orders Ordered: ED Orders 05/20/25 10:28 XR hip w pel RT 2V Stat Vital Signs Vital signs: Vital Signs - 8 hr 05/20/25 10:20 Temperature 97.4 F L Pulse Rate 104 H Respiratory Rate 16 Blood Pressure 112/68 Pulse Oximetry 96 Oxygen Delivery Method Room Air MDM - Extremity Injury (Lower) <Devon Morales PA-C - Last Filed: 05/20/25 18:07> MDM Narrative Medical decision making narrative: 85-year-old male status post right hip repair on 03/09 presents to the ED for ongoing right groin and hip pain. X-ray of the hip and pelvis shows no new acute bony abnormality. Prior fracture healing is incomplete. Discussed findings with patient that there are no new findings. Recommend patient follow-up with both Dr. Almonte as well as his orthopedic surgeon Dr. Daniel for further evaluation. Also recommend that patient proceed to physical therapy as scheduled. ED return precautions discussed with patient. Patient verbalized understanding. Medical records reviewed: Yes Discharge Plan Departure Patient Disposition: Home Clinical Impression: Hip pain Qualifiers: Laterality: right Qualified Code(s): M25.551 - Pain in right hip Instructions: DI for Hip Pain Activity Restrictions/Additional Instructions: You were evaluated in the emergency department today for right-sided hip pain. The x-ray was normal with no new fractures. Please follow-up with your PCP and ortho specialist Dr. Monique moe for further evaluation. It will also be important to start physical therapy. Return to the ED if you have worsening symptoms, numbness, tingling, weakness. Prescriptions: No Action hydrocodone-acetaminophen 5-325 mg tablet 1 tab PO Q4H PRN (Reason: Pain, Moderate (4-6)) Qty: 20 0RF tramadol 50 mg tablet 50 mg PO Q8H PRN (Reason: pain) Qty: 30 0RF ascorbate calcium (vitamin C) 500 mg tablet 500 mg PO DAILY folic acid 800 mcg tablet 0.8 mg PO DAILY cholecalciferol (vitamin D3) 50 mcg (2,000 unit) capsule 50 mcg PO DAILY Calcium & Vitamin D3 600mg PO DAILY Imodium AD 2mg PO DAILY Vitamin B12 1000mcg PO DAILY adult multivitamin PO DAILY flax seed oil PO DAILY citalopram 20 mg tablet 20 mg PO DAILY Qty: 100 3RF sulfasalazine 500 mg tablet 2,000 mg PO BID Qty: 400 3RF acetaminophen 325 mg Tablet 650 mg PO Q6H PRN (Reason: Fever/Mild Pain (1-3)) Qty: 1 0RF polyethylene glycol 3350 [Gavilax] 17 gram Powder In Packet 17 gm PO DAILY Qty: 1 0RF ondansetron 4 mg Tablet,Disintegrating 4 mg PO Q4HR PRN (Reason: Nausea And Vomiting) Qty: 1 0RF Referrals: Jose A Almonte DO [Primary Care Provider, Family Practice] Stand Alone Forms: Patient Portal/API ED Sign-out <Hank Weiss MD - Last Filed: 05/26/25 08:57> Cosign ED Attending Coscherelleature Attestation: I was immediately available in the department for consultation. ?This documentation has been reviewed and I agree with assessment and plan. Supervised by Hank Weiss MD
== END 2025-05-20 12:59 | disposition home or self-care (01) ==
PROVIDERS: Emergency Provider Student in an Organized Health Care Education/Training Program; PCP Family Medicine
DX: R10.31 Right lower quadrant pain (principal); M25.551 Pain in right hip; S72.001D Fracture of unspecified part of neck of right femur, subsequent encounter for closed fracture with routine healing; X58.XXXD Exposure to other specified factors, subsequent encounter; Z98.890 Other specified postprocedural states
CPT/HCPCS: 73502; 99283